=== PATIENT | female | born 1980 | race Two or more races ===

== ENCOUNTER 2020-02-16 08:46 | Outpatient (REF) | payer MEDICAID, SELFPAY ==
[2020-02-16 11:56] LABS: Syphilis Screen Nonreactive (Nonreactive)
[2020-02-17 04:02] LABS: ~HepC Num1 0.12 S/CO (0.00-0.79); ~Hepatitis C Antibody Nonreactive (Nonreactive)
[2020-02-17 04:09] LABS: HBsAGNum1 0.14 S/CO (0.00-0.99); HIV AB/AG Nonreactive (Nonreactive); HIV Num 1 0.08 S/CO (0.00-0.99); Hepatitis B Surface Antigen Negative (Negative)
[2020-02-17 09:41] LABS: BV Int Neg Control Negative (Negative); BV Int Pos Control Positive (Positive)
[2020-02-24 05:53] LABS: HPV 16 RNA NOT DETECTED (NOT DETECTED); HPV mRNA E6/E7 rflx Detected (Not Detected)
[2020-03-11 14:21] LABS: CT PCR NOT DETECTED (Not Detect.); NG PCR NOT DETECTED (Not Detect.)
== END 2020-02-16 08:47 | disposition home or self-care (01) ==
LOC: HO.LAB 08:46
PROVIDERS: Visit Provider Obstetrics & Gynecology
DX: Z01.419 Encounter for gynecological examination (general) (routine) without abnormal findings (principal)
CPT/HCPCS: 86780; 86803; 87340; 87389; 87480; 87491; 87510; 87591; 87624; 87625; 87660; 88141; 88142

== ENCOUNTER 2020-03-13 14:52 | Outpatient (REF) | payer MEDICAID, SELFPAY | END 2020-03-13 14:53 | disposition home or self-care (01) | LOC: HO.LAB 14:52 | PROVIDERS: Visit Provider Obstetrics & Gynecology | DX: L91.8 Other hypertrophic disorders of the skin (principal); F17.210 Nicotine dependence, cigarettes, uncomplicated | CPT/HCPCS: 11200; 88305 ==

== ENCOUNTER 2020-06-07 12:33 | Outpatient (REF) | payer MEDICAID, SELFPAY ==
--- NOTE | ~2020-06-07 | US_ITS ---
EXAMINATION: US DIAGNOSTIC ULTRASOUND BREAST, LEFT CLINICAL INFORMATION: Follow-up probable benign complicated cyst left breast with fine internal avascular septations. COMPARISON: Targeted ultrasound left breast 11/15/2019, 05/17/2019 (BI-RADS 0). TECHNIQUE: Ultrasound left breast is targeted to the 1:00 position. Grayscale imaging and color Doppler are performed without and with harmonics. FINDINGS: There is a small cyst with fine avascular internal septations 1:00 position 5 cm from nipple measuring approximately 5 mm. There is no increasing size or interval thickening of the septation, color flow, or interval solid component. The cyst will be reassessed again at time of annual upcoming bilateral annual mammography to conclude surveillance. Results are provided to the patient at time of visit by the technologist. US/US breast LT limited IMPRESSION: Stable small benign-appearing complicated cyst 1:00 position. ASSESSMENT: BI-RADS 3: Probably Benign RECOMMENDATION: Targeted left breast ultrasound at time of upcoming bilateral annual mammography. This patient's information was entered into a reminder system with a target due date for their next mammogram.
== END 2020-06-07 12:34 | disposition home or self-care (01) ==
LOC: HO.MAMMO 12:33
PROVIDERS: PCP Registered Nurse; Visit Provider Registered Nurse
DX: N60.02 Solitary cyst of left breast (principal)
CPT/HCPCS: 76642

== ENCOUNTER → 2020-06-14 09:50 | Outpatient (BNVA) | payer MEDICAID, SELFPAY | PROVIDERS: Visit Provider Obstetrics & Gynecology | DX: R87.610 Atypical squamous cells of undetermined significance on cytologic smear of cervix (ASC-US) (principal); R87.810 Cervical 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virus (HPV) DNA test positive | CPT/HCPCS: 57454 ==

== ENCOUNTER 2020-06-15 08:16 | Outpatient (REF) | payer MEDICAID, SELFPAY | END 2020-06-15 08:17 | disposition home or self-care (01) | LOC: HO.LAB 08:16 | PROVIDERS: Visit Provider Obstetrics & Gynecology | DX: R87.610 Atypical squamous cells of undetermined significance on cytologic smear of cervix (ASC-US) (principal); R87.810 Cervical 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virus (HPV) DNA test positive | CPT/HCPCS: 88305 ==

== ENCOUNTER → 2020-06-28 11:45 | Outpatient (BNVA) | payer MEDICAID, SELFPAY | PROVIDERS: Visit Provider Obstetrics & Gynecology | DX: R87.610 Atypical squamous cells of undetermined significance on cytologic smear of cervix (ASC-US) (principal); R87.810 Cervical 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virus (HPV) DNA test positive ==

== ENCOUNTER 2021-01-17 11:52 | Outpatient (REF) | payer MEDICAID, SELFPAY ==
--- NOTE | ~2021-01-17 | US_ITS ---
EXAMINATION: US THYROID CLINICAL INFORMATION: Nontoxic single thyroid nodule. COMPARISON: Ultrasound soft tissue head/neck thyroid dated 05/11/2019. TECHNIQUE: Linear transducer grayscale and color Doppler examination with attention to the region of the thyroid. FINDINGS: SIZE: Measurements of the thyroid lobes and nodules are given in sagittal, anteroposterior and transverse dimensions respectively. Right Thyroid Lobe: 5.3 x 1.4 x 1.7 cm, volume 6.6 mL. Previously 5.4 x 1.6 x 1.9 cm, volume 8.6 mL. Parenchyma: The gland echotexture is homogeneous. Thyroid vascularity is normal. Left Thyroid Lobe: 5.3 x 1.4 x 1.5 cm, volume 5.8 mL. Previously 4.8 x 1.6 x 1.7 cm, volume 6.8 mL. Parenchyma: The gland echotexture is homogeneous. Thyroid vascularity is normal. Isthmus: 0.4 cm in maximum AP dimension. Previously 0.4 cm. Estimated total number of nodules greater than or equal to 1 cm: 0. 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 Location: Right superior. Size: 0.6 x 0.5 x 0.9 cm, volume 0.15 mL. Previously: 0.9 x 0.5 x 0.5 cm, volume 0.12 mL. Nodule characteristics: Composition: Solid (2). Echogenicity: Isoechoic (1). Shape: Taller than wide (3). Margins: Smooth (0). Echogenic Foci: None (0). ACR TI-RADS total points: 6 Previous: n/a ACR TI-RADS category: 4 Previous: n/a Significant change in size (>/= 20% in 2 dimensions and minimal increase of 2 mm or 50% or greater increase in volume): None Change in features: None Change in ACR TI-RADS risk category: n/a 2. Location: Right mid. Size: 0.3 x 0.2 x 0.3 cm, volume 0.01 mL. Previously: 0.2 x 0.2 x 0.2 cm, volume 0.004 mL. Nodule characteristics: Composition: Solid (2). Echogenicity: Hypoechoic (2). Shape: Not taller than wide (0). Margins: Smooth (0). Echogenic Foci: None (0). ACR TI-RADS total points: 4 Previous: n/a ACR TI-RADS category: 4 Previous: n/a Significant change in size (>/= 20% in 2 dimensions and minimal increase of 2 mm or 50% or greater increase in volume): None Change in features: None Change in ACR TI-RADS risk category: n/a 3. Location: Left inferior. Size: 0.6 x 0.7 x 0.8 cm, volume 0.2 mL. Previously: 0.8 x 0.7 x 0.9 cm, volume 0.26 mL. Nodule characteristics: Composition: Solid (2). Echogenicity: Very hypoechoic (3). Shape: Not taller than wide (0). Margins: Irregular (2). Echogenic Foci: Macrocalcifications (1). ACR TI-RADS total points: 8 Previous: n/a ACR TI-RADS category: 5 Previous: n/a Significant change in size (>/= 20% in 2 dimensions and minimal increase of 2 mm or 50% or greater increase in volume): None Change in features: None Change in ACR TI-RADS risk category: n/a NODES: No lymphadenopathy is seen in the tissue surrounding the thyroid gland. US/US thyroid IMPRESSION: Subcentimeter bilateral thyroid nodules, nonsuspicious. Recommend continued follow-up. ACR TI-RADS RECOMMENDATION REFERENCE: Ultrasound-guided fine-needle aspiration, followup ultrasound, no further follow up. * TR1 (0 point) and TR 2 (2 points): No FNA or follow up * TR3 (3 points): FNA if more than or equal to 2.5 cm in maximum dimension, followup ultrasound in 1, 3 and 5 years if 1.5 to 2.4 cm in maximum dimension. * TR4 (4-6 points): FNA if more than or equal to 1.5 cm in maximum dimension, followup ultrasound in 1, 2, 3 and 5 years if 1 to 1.4 cm in maximum dimension. * TR5 (more than or equal to 7 points): FNA if more than or equal to 1 cm in maximum dimension, followup ultrasound every year for 5 years if 0.5 to 0.9 cm in maximum dimension. * TR3, TR4 or TR5 nodules that are below the size threshold for follow up receive no follow up.
== END 2021-01-17 11:53 | disposition home or self-care (01) ==
LOC: HO.US 11:52
PROVIDERS: Visit Provider Registered Nurse
DX: E04.1 Nontoxic single thyroid nodule (principal)
CPT/HCPCS: 76536

== ENCOUNTER 2022-09-11 09:39 | Outpatient (REF) | payer MEDICAID, SELFPAY ==
--- NOTE | ~2022-09-11 | XR_ITS ---
EXAMINATION: XR KNEE, LEFT CLINICAL INFORMATION: Pain in the left knee. COMPARISON: None available. TECHNIQUE: Three views of the left knee. FINDINGS: No acute fractures or subluxation. Mild joint space narrowing of the medial compartment. No erosions or chondrocalcinosis. Trace joint effusion. No unexpected radiopaque foreign bodies. XR/XR knee LT 3V IMPRESSION: No acute fractures or subluxation. Mild degenerative osteoarthritis of the medial compartment. Trace joint effusion.
== END 2022-09-11 09:40 | disposition home or self-care (01) ==
LOC: HO.HOSX 09:39
PROVIDERS: Visit Provider Orthopaedic Surgery
DX: M25.562 Pain in left knee (principal); Z79.899 Other long term (current) drug therapy
CPT/HCPCS: 73562; 99202

== ENCOUNTER 2022-09-11 09:48 | Outpatient (AMB) | payer MEDICAID, SELFPAY ==
--- NOTE | 2022-09-11 09:53 | MHC.OFFVIS ---
Intake Vital Signs 09/11/22 10:08 Height 5 ft 8 in Weight 203 lb BMI 30.9 Intake Visit Reasons: New Pt - Left Knee Pain Intake Note: Gabi is a 42 year old female who presents today with complaints of progressively worsening left knee pain and ?locking?. The patient states that her symptoms have gotten worse over the last 10 years in spite of continued non operative treatments. She has done physical therapy for 12 weeks over the last 6 months which aggravated her pain. She has also had multiple injections. The most recent injection gave her minimal relief. She has tried Tylenol and ibuprofen which gave her only mild relief. She states that her left knee will ?lock? several times per day. Allergies No Known Allergies [No Known Allergies*] Allergy (Verified 09/11/22 10:08) Medication List - Last Reconciled 09/11/22 by David Barker MD albuterol sulfate 90 mcg/actuation (Ventolin HFA) 2 puffs inhalation Q4H PRN lidocaine HCl 4% (Aspercreme (lidocaine HCl)) 1 appl topical BID PFSH Medical History Depression Surgical History History of inguinal hernia repair Family History Father HTN (hypertension) Mother Diabetes Social History (Updated 09/11/22 @ 10:12 by STEFANI Garcia) Alcohol intake: never Patient Tobacco Use Status: Current everyday Tobacco user Cigarettes Per Day: 2 Substance Use Type: Marijuana Current occupational status: unemployed Sexual orientation: Straight/Heterosexual Gender identity: Female Female Reproductive History Menstrual Age of Menarche: 11 Physical Exam Vital Signs: BMI result Body Mass Index 30.9 Const Other: Well-nourished well-developed very friendly female awake alert and oriented x3 in no acute distress Extrem Other: Bilateral lower extremity examination shows good capillary refill, no skin lesions noted, normal sensation light touch Left knee examination shows a minimal effusion, minimal crepitus with range of motion, tenderness along her medial joint line, positive Raheem's test, no instability Results Reviewed Results Reviewed: X-rays of the patient's left knee taken today show mild diffused joint space narrowing, no acute bony abnormalities Assessment & Plan Assessment & Plan (1) Left knee pain: Code(s): M25.562 - Pain in left knee Plan Ms. Wilks presents with progressively worsening left knee pain and mechanical symptoms most likely due to a tear of her medial meniscus. Thus, I will send her for an MRI for further evaluation. I will see her back following the MRI to discuss the findings and treatment options. She will contact me prior to that time should any questions or concerns arise. I spent 22 minutes in reviewing the patient's records and imaging studies, seeing the patient and documenting in the medical record. Orders: Orders XR knee LT 3V Today M25.562 - Pain in left knee Coding Level of Care Code New Pt Level 2 (29984) Diagnoses Left knee pain M25.562
[2022-09-11 10:08] VITALS: BMI 30.9
== END 2022-09-11 11:51 | disposition home or self-care (01) ==
PROVIDERS: Visit Provider Orthopaedic Surgery
DX: M25.562 Pain in left knee (principal)
CPT/HCPCS: 99202

== ENCOUNTER 2024-04-01 16:00 | Outpatient (REF) | payer MEDICAID, SELFPAY ==
--- OUTSIDE RECORDS SUMMARY | 2024-04-01 19:29 | XMS_ITS | Encounter Summary ---
Author Organization [employer] Address [address] [place] [address] [address] [place] [address] Care Team Providers Care Wellness Manager Name Role Phone Mary Moore SHEN Primary Care Provider [phone] Reason for Referral * Imaging (Urgent) - Authorized Specialty Diagnoses / Procedures Referred By Contac t Referred To Contact Radiology Diagnoses Menorrhagia with regular cycle Procedures Us Pelvis complete Cindi Escalona CNM [address] [place] [address] Phone: tel: fax: [address] Phone: tel: fax: Referral ID Status Reason Start Date Expiration Date V isits Requested Visits Authorized [id number] Authorized 04/01/2024 04/01/2025 1 1 * Imaging (Urgent) - Authorized Specialty Diagnoses / Procedures Referred By Contac t Referred To Contact Radiology Diagnoses Menorrhagia with regular cycle Procedures US Pelvis Transvaginal Cidni Escalona CNM [address] [place] [address] Phone: tel: fax: [address] Phone: tel: fax: Referral ID Status Reason Start Date Expiration Date V isits Requested Visits Authorized [id number] Authorized 04/01/2024 04/01/2025 1 1 Encounter Details Date Type Department Care Team (Latest Contact Info) Description 04/01/2024 10:30 AM EST Procedure Visit [facility] [address] [place] [address] Cindi Escalona CNM [address] [place] [address] LGSIL on Pap smear of cervix (Primary Dx); Menorrhagia with regular cycle; Dyslipidemia Social History Tobacco Use Types Packs/Day Years Used Date Smoking Tobacco: Every Day Cigarettes Smokeless Tobacco: Never Comments:1/2 a pack if stres sed. Alcohol Use Standard Drinks/Week Comments Never 0 (1 standard drink = 0.6 oz pur e alcohol) Depression Answer Date Recorded Patient Health Questionnaire-9 Score 19 03/17/2024 Patient Health Questionnaire-9 Score 19 03/17/2024 Last PHQ-9: Questionnaire Data Not on file 0 03/17/2024 Housing Stability Answer Date Recorded What is your housing situation today? I have wagner rice 08/26/[address] you li ve. Do you have problems with any of the following? None of the above 08/26/2023 Food Insecurity Answer Date Recorded Within the past 12 months, y ou worried that your food would run out before you got money to buy more: Never True 08/26/2023 Within the past 12 months,th e food you bought just didn't last and you didn't have enough money to get more: Never True Transportation Answer Date Recorded In the past 12 months, has l ack of transportation kept you from medical appts, meetings, work or from getting things needed for daily living? No 08/26/2023 Utilities Answer Date Recorded In the past 12 months, has t he electric, gas, oil or water company threatened to shut off services in your home? No 08/26/2023 Depression Answer Date Recorded Patient Health Questionnaire-2 Score 4 03/17/2024 Internet Access Answer Date Recorded Internet Access Q1 No 11/03/2023 Internet Access Q2 I do not want or need it 04/2023 Comments Unknown Sex and Gender Information Value Date Recorded Sex Assigned at Female 12/31/2021 10:17 AM EDT Legal Sex Female 10:17 AM EDT Gender Identity Female 12/31/2021 10:17 AM EDT Sexual Orientation Straight 12/31/2021 10 :17 AM EDT documented as of this encounter Last Filed Vital Signs Vital Sign Reading Time Taken Comments Blood Pressure 133/86 04/01/2024 10:33 AM EST Pulse 100 04/01/2024 10:33 AM EST Temperature 36.4 ??C (97.6 ??F) 04/01/2024 10:[address] Respiratory Rate 16 04/01/2024 10:33 AM EST Oxygen Saturation 100% 04/01/2024 10:33 AM EST Inhaled Oxygen Concentration - - Weight 90.4 kg (199 lb 6.4 oz) 04/01/2024 10:33 AM EST Height 172.7 cm (5' 8 ) 04/01/2024 10:33 AM EST Body Mass Index 30.32 04/01/2024 10:33 AM EST documented in this encounter Progress Notes * Cindi Escalona, GEETA - 04/01/2024 10:30 AM EST Subjective Patient ID: Gabi Wilks is a 43 y.o. female who presents for pap LSIL HPV positive pap preceded by negative colpo in 2020 for ASCUS HPV pos, neg 16/18 pap in 2019. Plan was to cotest at 12 months. Mammogram ordered earlier this month. Has appointment 04/26. Notes some intermittent left chest painand left arm numbness for past few weeks. Not noted in past day or so. Would like cholesterol checked. Last lipid panel from 2022 with elevated total chol, LDL and TG. Monthly menses, getting progressively longer. Now bleeds x 8 days, heavy. No intermenstrual bleeding. Not planning in thenext year, not sexually active. No current partner. Review of Systems Eyes: Negative for visual disturbance. Respiratory: Negative for shortness of breath. Cardiovascular: Positive for chest pain. Negative for palpitations. Genitourinary: Positive for menstrual problem. Negative for dyspareunia, dysuria, frequency, genital sores, hematuria, pelvic pain, urgency, vaginal bleeding, vaginal discharge and vaginal pain. No breast pain, no breast mass, no nipple discharge Neurological: Negative for headaches. Objective BP 133/86 (BP Location: Right arm, Patient Position: Sitting, BP Cuff Size: Adult) Pulse 100 Temp 97.6 ??F (36.4 ??C) (Temporal) Resp 16 Ht 5' 8 (1.727 m) Wt 199 lb 6.4 oz (90.4 kg) LMP 02/19/2024 (Within Days) SpO2 100% BMI 30.32 kg/m?? Physical Exam Constitutional: Appearance: Normal appearance. Chest: Breasts: Right: Normal. No swelling, bleeding, inverted nipple, mass, nipple discharge, skin change or tenderness. Left: Normal. No swelling, bleeding, inverted nipple, mass, nipple discharge, skin change or tenderness. Genitourinary: General: Normal vulva. Labia: Right: No rash, tenderness, lesion or injury. Left: No rash, tenderness, lesion or injury. Vagina: Normal. No signs of injury and foreign body. No vaginal discharge, erythema, tenderness, bleeding or lesions. Cervix: No cervical motion tenderness, discharge, friability, lesion, erythema, cervical bleeding or eversion. Uterus: Normal. Not enlarged and not tender. Adnexa: Right adnexa normal and left adnexa normal. Right: No mass, tenderness or fullness. Left: No mass, tenderness or fullness. Lymphadenopathy: Upper Body: Right upper body: No supraclavicular or axillary adenopathy. Left upper body: No supraclavicular or axillary adenopathy. Neurological: Mental Status: She is alert. Psychiatric: Mood and Affect: Mood normal. Behavior: Behavior normal. Assessment/Plan Diagnoses and all orders for this visit: LGSIL on Pap smear of cervix - Pap Smear Cotest 3 years if normal/HPV neg per ASCCP Guidelines Menorrhagia with regular cycle - CBC; Future - TSH W/Reflex to FT4; Future - US Pelvis Transvaginal; Future - Us Pelvis complete; Future Increasingly heavier and longer menses over past few years. Will check TSH, cbc and pelvic ultrasound. Dyslipidemia - Lipid Panel, Standard; Future Would like repeat lipids. Will get fasting labs. Advised to seek care urgently if chest pain/left arm numbness recurs. Urged to clarify half sister's diagnosis (ovarian v cervical cancer) and let me know. If cervical, no further evaluation needed for Gabi. If ovarian, I would advise half sister have genetic consult. documented in this encounter Plan of Treatment Upcoming Encounters Date Type Department Care Team (Late st Contact Info) Description 05/12/2024 11:15 AM EDT Office Visit [facility] [address] [place] [address] Mary Moore FNP [address] [place] [address] Scheduled Orders Name Type Priority Associated Diagnoses Order Schedule Pap Smear Pathology and Cytology Routine LGSIL on Pap smear of cervix Ordered: 04/01/2024 CBC Lab Routine Menorrhagia with regular cycle Expected: 04/01/2024 (Approximate), Expires: 04/01/2025 TSH W/Reflex to FT4 Lab Routine Menorrhagia with regular cycle Expected: 04/01/2024 (Approximate), Expires: 04/01/2025 Lipid Panel, Standard Lab Routine Dyslipidemia Expected: 04/01/2024 (Approximate), Expires: 04/01/2025 US Pelvis Transvaginal Imaging Urgent Menorrhagia with regular cycle Expected: 04/01/2024, Expires: 04/01/2025 Us Pelvis complete Imaging Urgent Menorrhagia with regular cycle Expected: 04/01/2024, Expires: 04/01/2025 documented as of this encounter Visit Diagnoses Diagnosis LGSIL on Pap smear of cervix- Primary Menorrhagia with regular cycle Dyslipidemia Other and unspecified hyperlipidemia documented in this encounter Additional Health Concerns Assessment Noted Time PHQ-9 Depression Total Score: 19 025 11:24 AM EST documented as of this encounter Care Teams Wellness Manager Relationship Specialty Start Date End Date Mary Moore FNP [address] [place] [address] PCP - General Family Medicine 12/25/20 documented as of this encounter
--- OUTSIDE RECORDS SUMMARY | 2024-04-01 19:29 | XMS_ITS | Encounter Summary ---
Author Organization [employer] Address [address] [place] [address] [address] [place] [address] Care Team Providers Care Inspector Brake Lining Name Role Phone Mary Moore Primary Care Provider Reason for Visit * Reason Comments Care Coordination CM/CHW appt reminder Encounter Details Date Type Department Care Team (Latest Contact Info) Description 03/23/2024 Patient Outreach [facility] [address] [place], [place] [phone] Mary Moore FNP [address] [place], [place] [phone] Care Coordination (CM/CHW appt reminder) Social History Tobacco Use Types Packs/Day Years [...] your housing situation today? I have wagner dwayne 08/26/[address] you li [...] AM EDT documented as of this encounter Progress Notes * Sheree Noe - 03/23/2024 10:25 AM EST CHW Sheree Noe placed outbound call to patient. No answer at this time. [facility], reminding patient of initial assessment appt via telephone on 03/24/24 @ 10AM tele with CM Adult Complex Care program services. Requested call back to , as well as for any additional questions or concerns. documented in this encounter Plan of Treatment Upcoming Encounters Date Type Department Care Team (Late st Contact Info) Description 05/12/2024 11:15 AM EDT Office Visit [facility] MEDICINE [address] [place] [address] Mary Moore FNP [address] [place] [address] documented as of this encounter Visit Diagnoses Not on filedocumented in this encounter Additional Health Concerns Assessment Noted Time PHQ-9 Depression Total Score: 19 025 11:24 AM EST documented as of this encounter Care Teams Inspector Brake Lining Relationship Specialty Start Date End Date Mary Moore FNP [address] [place] [address] PCP - General Family Medicine 12/25/20 documented as of this encounter
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
--- OUTSIDE RECORDS SUMMARY | 2024-04-01 19:29 | XMS_ITS | Encounter Summary ---
Author Organization [employer] Address [address] [facility] [address] 7 [place] [address] Care Team Providers Care Needle Leader Name Role Phone Mary Moore SHEN Primary Care Provider [phone] Reason for Visit * Reason Onset Date Comments Care Management 03/19/2024 C3- chart [id number] [id number] Encounter Details Date Type Department Care Team ([facility] st Contact Info) Description 03/19/2024 Telephone [facility] [address] [place] [address] Kevin Quintero RN [address] [place] [address] Care Management (C3CM- chart review) Social History Tobacco Use Types Packs/Day Years [...] AM EDT documented as of this encounter Miscellaneous Notes * Telephone Encounter - Kevin Quintero RN - 03/19/2024 8:12 AM EST CM Kevin Quintero RN, performed chart review, in anticipation of initial assessment with patient, as patient has stratified for C3 Adult Complex Care through provider referral. 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 Specialists include PT, Optometry, [facility] Ortho, and Behavioral Health. No known ED visits within the last 12 months. Last appointment in PCP office on 03/17/24. Next appointment scheduled for 03/29/24 at 11:00am with [facility] Chronic Pain Clinic and 04/01/24 at 10:30am for PAP-[facility]. documented in this encounter Plan of Treatment Upcoming Encounters Date Type Department Care Team (Late st Contact Info) Description 05/12/2024 11:15 AM EDT Office Visit [facility] [address] [place] [address] Mary Moore FNP [address] [place], [place] [phone] documented as of this encounter Visit Diagnoses Not on filedocumented in this encounter Additional Health Concerns Assessment Noted Time PHQ-9 Depression Total Score: 19 025 11:24 AM EST documented as of this encounter Care Teams Needle Leader Relationship Specialty Start Date End Date Mary Moore FNP [address] [place] [id number] PCP - General Family Medicine 12/25/20 documented as of this encounter
--- OUTSIDE RECORDS SUMMARY | 2024-04-01 19:29 | XMS_ITS | Encounter Summary ---
Author Organization [employer] Address [address] [place] [address] Care Team Providers Care Reconsignment Clerk Name Role Phone Mary Moore SHEN Primary Care Provider [phone] Encounter Details Date Type Department Care Team (Latest Contact Info) Description 03/25/2024 Travel Social History Tobacco Use Types Packs/Day Years [...] AM EDT documented as of this encounter Plan of Treatment Upcoming Encounters Date Type Department Care Team (Late st Contact Info) Description 05/12/2024 11:15 AM EDT Office Visit [facility] [address] [place] [address] Mary Moore FNP [address] [place] [address] documented as of this encounter Visit Diagnoses Not on filedocumented in this encounter Additional Health Concerns Assessment Noted Time PHQ-9 Depression Total Score: 19 025 11:24 AM EST documented as of this encounter Care Teams Reconsignment Clerk Relationship Specialty Start Date End Date Mary Moore FNP [address] [place] [address] PCP - General Family Medicine 12/25/20 documented as of this encounter
--- OUTSIDE RECORDS SUMMARY | 2024-04-01 19:29 | XMS_ITS | Clinical Summary ---
Author Organization [employer] Address [address] [facility] [address] [place] [address] Care Team Providers Care Cmo Name Role Phone Mary Moore SHEN Primary Care Provider [phone] Allergies No known active allergies Medications * This document contains information received from the source organization and may not represent a complete record from that organization. fluticasone (Flovent HFA) 220 MCG/ACT inhalerIndication s:Moderate persistent asthma, uncomplicated Inhale 1 puff every 12 (twelve) hours. 12 g 3 3 Active ulipristal (Starla) 30 mg tablet Take 1 tablet by mouth. 1 Active cyclobenzaprine (Flexeril) 10 MG tabletIndications :Acute left-sided low back pain without sciatica Take 1 tablet (10 mg) by mouth if needed in the morning, at noon, and at bedtime for muscle spasms for up to [address]. [address] while on this medication 30 tablet 4 Active fluticasone (Flonase) 50 MCG/ACT nasal spray Administer 1-2 sprays into each nostril if needed each day for allergies. Shake gently. Before first use, prime pump. After use, clean tip and replace cap. 16 g 5 4 025 Active ibuprofen 800 MG tabletIndications :Low back pain at multiple sites,Discogenic lumbar pain Take 1 tablet (800 mg) by mouth every 8 (eight) hours if needed (pain or fever). 100 tablet 3 4 Active acetaminophen (Tylenol Extra Strength) 500 MG tabletIndications :Low back pain at multiple sites,Discogenic lumbar pain Take 1-2 tablets (500-1,000 mg) by mouth every 8 (eight) hours if needed (pain or fever). 100 tablet 3 4 025 Active Diclofenac Sodium 1 % gelIndications:Lo w back pain at multiple sites,Discogenic lumbar pain APPLY 1 APPLICATION TOPICALLY IF NEEDED IN THE MORNING, AT NOON, IN THE EVENING AND AT BEDTIME FOR PAIN 100 g 5 4 Active albuterol (ProAir HFA) 108 (90 Base) MCG/ACT inhalerIndication s:Moderate persistent asthma, uncomplicated Inhale 2 puffs every 4 (four) hours if needed for wheezing or shortness of breath. 18 g 3 4 025 Active lidocaine (Lidoderm) 5 % patch Apply 1 patch topically in the morning as needed for knee pain. Remove & discard patch within 12 hours or as directed by provider. 30 patch 11 4 Active melatonin 5 MG tabletIndications :Sleep difficulties Take 1 tablet (5 mg) by mouth at bedtime. Take 60 minutes before bed. 90 tablet 1 5 026 Active Magnesium 400 MG capsuleIndication s:Sleep difficulties Take 400 mg by mouth at bedtime. Take 60 minutes before bed. 90 capsule 1 5 026 Active Active Problems Problem Noted Date Diagnosed Date Menorrhagia with regular cycle 04/01/2024 Marijuana use 03/19/2024 Healthcare maintenance 09/03/2023 Overview (03/18/2024): OPH: CEE 10/21/22 at [facility]. Due Oct 2024 Last PE: 09/03/23 Tdap: last 09/03/23 Routine Cancer Screening Breast CA: Last available May 2019: BIRADS 3. Order placed 03/17/2024 Cervical CA: ASCUS HPV pos, neg 16/18 in 02/2020, followed by negative colposcopy 06/2020. Jan 2021 LSIL HPV pos. Due for repeat Jan 2022. Scheduled 04/01/2024 at [facility] Colon CA: routine screening 45-75 years old per ACS Assessment & Plan (09/04/2023 2:28 PM EDT): Due to acute concerns, time did not permit for discussion of routine cancer screenings. Plan for pt to return in 1 month to discuss routine health maintenance (mammo & pap due), as well as lab work. Severe episode of recurrent major depressive disorder, without psychotic features 09/10/2022 Assessment & Plan (09/04/2023 2:42 PM EDT): Reports leading to significant impairments with locating employment and functioning in daily activities Denies active SI/HI/thoughts of self harm Referred for OP therapy ([facility]). Plan for initial appt within the next two weeks Consider discussion of pharmacotherapy at follow up Assessment & Plan (09/15/2022 9:03 PM EDT): ?? Reports leading to significant impairments with locating employment and functioning in daily activities ?? Denies SI/HI/thoughts of self harm ?? BE completed in office, please see documentation for further details ?? Referral for OP therapy placed Assessment & Plan (09/11/2022 8:33 AM EDT): Assessment: Patient with anhedonia, depressed mood, trouble falling asleep, feeling tired, poor appetite, shame/guilt, trouble concentrating. She denies SI/HI. Presentation in the context of family conflict, financial instability, unemployment, and lack of support system. Patient is requesting OP therapy service to assist with her processing trauma history. At this time Gabi Wilks meets criteria for Visit Diagnoses: Problem List Items Addressed This Visit Other Severe episode of recurrent major depressive disorder, without psychotic features (CMS/HCC) Patient ready to address current needs Yes Strengths include motivation to improve mental health by seeking out help PLAN: 1. Follow up with C: Not recommended for follow-up 2. Patient goal is to be connected to a therapist 3. Behavioral Recommendations a. Patient will engage in OP therapy, once service is established b. Patient may request to connect with a [facility] during next PCP visit, if needed Costochondritis 09/02/2022 Assessment & Plan (09/02/2022 10:05 AM EDT): -EKG unremarable. -Exam and history consitant with costochondritis. -Recomend rest, warm compresses, ibuprofen, and cyclobenzaprine for pain. Moderate persistent asthma without complication 07/11/2022 Overview (09/04/2023): Maintenance: Flovent 220mcg/act 1 puff BID Rescue: albuterol PRN Assessment & Plan (09/04/2023 2:40 PM EDT): Cont with above, Follow up with any worsening of symptoms Assessment & Plan (07/11/2022 4:05 PM EDT): Follow up with any worsening of symptoms Cigarette smoker 07/11/2022 Assessment & Plan (07/11/2022 4:36 PM EDT): ?? Currently smoking up to 0.5 pack per day ?? Previous trials of NRT and Varenicline ?? Follow up if interested in smoking cessation resources through [facility] Discogenic lumbar pain 01/18/2021 Overview (03/18/2024): Specialists: previously referred to physiatry. They had recommended PT and to return if worsening for consideration of injection Continue with symptomatic relief measures such as warm bath/shower, APAP & ibuprofen PRN, stretching Referral to physical therapy placed 09/03/23, re-sent on 03/18/2024 Assessment & Plan (03/18/2024 9:49 AM EST): Referral to physical therapy, also scheduled for [facility] chronic pain group clinic Assessment & Plan (07/11/2022 4:32 PM EDT): Follow up as needed Generalized anxiety disorder 01/06/2021 Assessment & Plan (03/18/2024 9:52 AM EST): BE completed today, see documentation for further details BH: Weekly therapy sessions through [facility] Pharmacotherapy: Discussed risks/benefits, she will consider Primary goal: Housing. Referred to care management team for further assistance and support. Thyroid nodule 01/06/2021 Encounters * This document contains information received from the source organization and may not represent a complete record from that organization. Date Type Department Care Team Description 04/01/2024 10:30 AM EST Procedure Visit [facility] [address] [place] [id number] Cindi Escalona CNM LGSIL on Pap smear of cervix (Primary Dx); Menorrhagia with regular cycle; Dyslipidemia 04/01/2024 Travel 03/25/2024 Travel 03/24/2024 Travel 03/24/2024 Patient Outreach [facility] [address] [place] [address] Mary Moore FNP Care Coordination (CM/CHW appt) 03/23/2024 Patient Outreach [facility] [address] [place] [address] Mary Moore FNP Care Coordination (CM/CHW appt reminder) 03/19/2024 Patient Outreach [facility] [address] [place] [address] Mary Moore FNP Care Coordination (CM/CHW outreach) 03/19/[address] [address] Kevin Quintero RN Care Management (C3CM- chart review) 03/17/2024 11:15 AM EST Office Visit [address] [address] Mary Moore FNP Generalized anxiety disorder (Primary Dx); Healthcare maintenance; Encounter for screening mammogram for malignant neoplasm of breast; Discogenic lumbar pain; Sleep difficulties 03/17/2024 Travel 03/17/[address] [address] Nishant Quiros [place] Chart Prep 01/21/2024 Travel from Last 3 Months Immunizations Name Administration Dates Next Due Tdap 09/03/2023 Family History Medical History Relation Name Comments Congenital heart disease Daughter Diabetes Mother Prostate cancer Paternal Grandfather Breast cancer Paternal Grandmother Relation Name Status Comments Daughter Half-Sister Other Ovarian vs cerv ical cancer, 33 Mother Paternal Grandfather Paternal Grandmother Social History Tobacco Use Types Packs/Day Years Used Date Smoking Tobacco: Every Day Cigarettes Smokeless Tobacco: Never Tobacco Cessation:Ready to Q uit: Not Asked; Counseling Given: Not Answered Comments:1/2 a pack if stressed. Alcohol Use Standard Drinks/Week Comments Never 0 [...] Orientation Straight 12/31/2021 10 :17 AM EDT Last Filed Vital Signs Vital Sign Reading [...] Mass Index 30.32 04/01/2024 10:33 AM EST Plan of Treatment Upcoming Encounters Date Type Department Care Team (Late st Contact Info) Description 05/12/2024 11:15 AM EDT Office Visit [facility] [address] [place], [place] [phone] Mary Moore FNP [address] [place], [place] [phone] Health Maintenance Due Date Last Done Comments Hepatitis B Vaccines (1 of 3 - 19+ 3-dose series) 07/02/1999 Pneumococcal Vaccine: Pediatrics (0 to 5 Years) and At-Risk Patients (6 to 49) Years) (1 of 2 - PCV) 07/02/1999 Mammogram 05/16/2021 05/17/2019 Pap Smear 01/05/2024 01/04/2021, 01/04/2021 SDOH Screening 08/25/2024 08/26/2023 Influenza Vaccine (#1) 2024 Postp oned from 11/02/2023 (Patient Refused) Alcohol/Substance Use Screening 09/02/2024 09/03/2023 Depression Monitoring (PHQ-9) 09/14/2024, 03/17/2024 Depression Screening 03/17/2025 03/17/2024, 03/17/2024 COVID-19 Vaccine (1 - 2023-2 5 season) 2025 Postponed from 11/01 (Patient Refused) Family Planning (PISQ) 04/01/2025 04/01/2024 Tobacco Screening 04/01/2025 04/01/2024 Cervical Cancer Screening 01/04/2026 HPV/Cotest 01/04/2026 01/04/2021 Lipid Panel 07/09/2027 07/08/2022, 12/29/2020 Zoster Vaccines (1 of 2) 2030 DTaP/Tdap/Td Vaccines (2 - T d or Tdap) 09/02/2033 09/03/2023 RSV Patients and Patients Aged 60 years or older (1 - 1-dose 75+ series) 07/02/2055 HIV Screening Completed 12/29/2020, 04/26/2019 Hepatitis C Screening Completed 12/29/2020 , 04/26/2019 HIB Vaccines Aged Out No longer eligi ble based on patient's age to complete this topic HPV Vaccines Aged Out No longer eligi ble based on patient's age to complete this topic Hepatitis A Vaccines Aged Out No long er eligible based on patient's age to complete this topic IPV Vaccines Aged Out No longer eligi ble based on patient's age to complete this topic Meningococcal Vaccine Aged Out No vivi vasiliy eligible based on patient's age to complete this topic RSV under 20 months Aged Out No longe r eligible based on patient's age to complete this topic Rotavirus Vaccines Aged Out No longer eligible based on patient's age to complete this topic Procedures Procedure Name Priority Date/Time Associated Diagnosis Comments LIPID PANEL, STANDARD Routine 07/08/2022 2:32 PM EDT Encounter for routine history and physical examination of adult THINPREP IMAGING PAP AND HPV MRNA E6/E7 WITH REFLEX TO HPV 16,18/45 Routine 01/04/2021 11:13 AM EDT PAP SMEAR Routine 01/04/2021 12:00 AM EDT NETTE HISTORICAL HEPATITIS C AB W/REFL TO HCV RNA, QN, PCR Routine 12/29/2020 4:34 PM EDT HIV 1/2 ANTIGEN/ANTIBODY, FOURTH GENERATION W/RFL Routine 12/29/2020 4:34 PM EDT BI MAMMOGRAM DIAGNOSTIC BILATERAL Routine 05/17/2019 2:02 PM EDT from Last 3 Months or Most Recently Relevant to Health Maintenance Results * (ABNORMAL) Lipid Panel, Standard (07/08/2022 2:32 PM EDT) Pathologist [facility] Cholesterol, Total 249(H) <200 mg/dL [facility] [place] [employer] HDL Cholesterol 55 > OR = 50 mg/dL [facility] [place] [facility] Triglycerides 154(H) <150 mg/dL [facility] LDL Cholesterol 164(H) mg/dL (calc) [facility] [place] [employer] Comment: Reference range: <100 Desirable range <100 mg/dL for primary prevention; ?? <70 mg/dL for patients with CHD or diabetic patients with > or = 2 CHD risk factors. LDL-C is now calculated using the Navneet calculation, which is a validated novel method providing better accuracy than the Friedewald equation in the estimation of LDL-C. Kosta SS et al. RIP. 2013;310(19): 6366-4794 (http://education.[employer]igma[employer]/faq/QUJ851) Chol/HDLC Ratio 4.5 <5.0 (calc) [facility] [place] [facility] Non-HDL Cholesterol 194(H) <130 mg/dL (calc) [facility] [place] [employer] Comment: For patients with diabetes plus 1 major ASCVD risk factor, treating to a non-HDL-C goal of <100 mg/dL (LDL-C of <70 mg/dL) is considered a therapeutic option. Blood Venous blood specimen / Unknown 07/08/2022 2:32 PM EDT 07/08/2022 2:32 PM EDT Narrative [facility] - 07/09/2022 4:55 AM EDT FASTING:NO FASTING: NO Mary Moore IRA [facility] LAB BLOOD ORDERABLES Final Res ult [facility] [address], [place] [address] [facility] [employer]OCUS [employer] [place] [employer] [address] [place] [address] * (ABNORMAL) THINPREP TIS PAP AND HPV mRNA E6/E7 REFLEX HPV 16,18/45 (01/04/2021 11:13 AM EDT) [facility] Clinical Information: None given [facility] COMMENT SEE COMMENT [facility] Comment: EXPLANATORY NOTE: ? The Pap is a screening test for cervical cancer. It is ?? not a diagnostic test and is subject to false negative ?? and false positive results. It is most reliable when a ?? satisfactory sample, regularly obtained, is submitted ?? with relevant clinical findings and history, and when ?? the Pap result is evaluated along with historic and ?? current clinical information. ?? COMMENT: This Pap test has been evaluated with computer assisted technology. [facility] Laminated [employer] Assembler And Gluer: SEE COMMENT [facility] Comment: DCR, CT(ASCP) CT screening location: [address] ??[address] General Categorization: EPITHELIAL CELL ABNORMALITY(A) [facility] HPV nRNA E6/E7 Detected(A) Not Detected [facility] [employer] Comment: Methodology: Marketing Technology Coordinator-Mediated Amplification This assay detects E6/E7 viral messenger RNA (mRNA) from 14 high-risk HPV types (16,18,31,33,35,39,45,51,52,56,58,59,66,68). ? The analytical performance characteristics of this assay have been determined by [facility]. The modifications have not been cleared or approved by the FDA. This assay has been validated pursuant to the CLIA regulations and is used for clinical purposes. ?? For additional information, please refer to http://education.[employer]/faq/XPI402d9 (This link if provided for information/ educational purposes only.) Interpretation/Re sult: Low Grade Squamous Intraepithelial Lesion (LSIL)(A) [facility] LMP: 12/25/20 [facility] PATHOLOGIST: SEE COMMENT FOUND [facility] Comment: Keyona Thompson M.D. Direct , Board Certified in Anatomic and Clinical Pathology and Cytopathology (electronic signature) Consulting Pathologist [facility] Pathology [address] [place] [address] Prev. BX: NONE GIVEN [facility] Prev. PAP: NONE GIVEN [facility] SOURCE: None given [facility] Statement Of Adequacy: SEE COMMENT [facility] Comment: Satisfactory for evaluation. Endocervical/transformation zone component present. 01/04/2021 11:1 3 AM EDT Cindi Castrojoe [facility] LAB PATHOLOGY ORDERABLES Final Result Performing Organization Address [facility] de Phone Number [facility] [address] [place] [address], * Pap Smear (01/04/2021 12:00 AM EDT) Swab Cindi Leonciosena [facility] LAB CYTOLOGY ORDERABLES F inal Result Performing Organization Address [facility] de Phone Number [facility] [address] [facility], [place] [address] * HEPATITIS C AB W/REFL TO HCV RNA, QN, PCR (12/29/2020 4:34 PM EDT) HEPATITIS C ANTIBODY NON-REACT JEREMY NON-REACT JEREMY [facility] INDEX 0.02 <1.00 [facility] Comment: ?? HCV antibody was non-reactive. There is no laboratory ?? evidence of HCV infection. ?? In most cases, no further action is required. However, if recent HCV exposure is suspected, a test for HCV RNA (test code 26107) is suggested. ?? For additional information please refer to http://education.[employer]/faq/GVF76z4 (This link is being provided for informational/ educational purposes only.) ?? 12/29/2020 4:34 PM EDT Mary Moore AIRCRAFT ARMAMENT MECHANIC HISTORICAL/NON ORDERABLE LABS Final Result Performing Organization Address [facility] de Phone Number [facility] [address] [place] [address], * HIV 1/2 ANTIGEN/ANTIBODY,FOURTH GENERATION W/RFL (12/29/2020 4:34 PM EDT) HIV-1/2 ANTIGEN AND ANTIBODIES, 4TH GENERATION W/ REFLEX NON-REACT JEREMY NON-REACT JEREMY [facility] Comment: HIV-1 antigen and HIV-1/HIV-2 antibodies were not detected. There is no laboratory evidence of HIV infection. ?? PLEASE NOTE: This information has been disclosed to you from records whose confidentiality may be protected by state law. ??If your state requires such protection, then the state law prohibits you from making any further disclosure of the information without the specific written consent of the person to whom it pertains, or as otherwise permitted by law. A general authorization for the release of medical or other information is NOT sufficient for this purpose. ? For additional information please refer to http://education.[employer]/faq/CTE474 (This link is being provided for informational/ educational purposes only.) ? The performance of this assay has not been clinically validated in patients less than 2 years old. ?? 12/29/2020 4:34 PM EDT Mary Moore [employer] LAB BLOOD ORDERABLES Final Res ult Performing Organization Address City/State/[facility] Co de Phone Number [facility] [address] * 3D BILATERAL DIAGN MAMMO 1 (05/17/2019 2:02 PM EDT) Anatomical Region Laterality Modality Breast Bilateral Mammography 05/17/2019 2:02 PM EDT Narrative 05/17/2019 2:04 PM EDT Refer to the Notes tab for result details [facility] Procedure: 3D BILATERAL DIAGN MAMMO 1 Procedure Note Provider, MD Zeeshan - 05/25/2022 Refer to the Notes tab for result details [facility] Procedure: 3D BILATERAL DIAGN MAMMO 1 Historical Provider IMG BI PROCEDURES Final R esult from Last 3 Months or Most Recently Relevant to Health Maintenance Insurance #[address] [place] [address] [facility] C3 HSN FULL . #1 [place] [address] . [address] [place] [address] . [address] [place] [address] Care Teams Cmo Relationship Specialty Start Date End Date Mary Moore FNP [address] [place] [id number] PCP - General Family Medicine 12/25/20
--- OUTSIDE RECORDS SUMMARY | 2024-04-01 19:29 | XMS_ITS | Encounter Summary ---
Author Organization [employer] Address [address] [place] [address] Care Team Providers Care Skin Fitter Name Role Phone Mary Moore SHEN Primary Care Provider Encounter Details Date Type Department Care Team (Latest Contact Info) Description 03/17/2024 Travel Social History Tobacco Use Types Packs/Day [...] Description 05/12/2024 11:15 AM EDT Office Visit [facility] [address] [place] [address] Mary Moore FNP [address] [place] [address] documented as of this encounter Visit Diagnoses Not on filedocumented in this encounter Additional Health Concerns Assessment Noted Time PHQ-9 Depression Total Score: 19 025 11:24 AM EST documented as of this encounter Care Teams Skin Fitter Relationship Specialty Start Date End Date Mary Moore FNP [address] [place] [address] PCP - General Family Medicine 12/25/20 documented as of this encounter
--- OUTSIDE RECORDS SUMMARY | 2024-04-01 19:29 | XMS_ITS | Encounter Summary ---
Author Organization [employer] Address [address] [facility] [address] [place] [address] Care Team Providers Care Salesperson Furniture Name Role Phone Mary Moore SHEN Primary Care Provider Reason for Visit * Reason Onset Date Comments Chart Prep 03/17/2024 Encounter Details Date Type Department Care Team (Late st Contact Info) Description 03/17/2024 Telephone [facility] [address] [place] [address] Nishant Quiros [place] Chart Prep Social History Tobacco Use Types Packs/Day Years [...] encounter Miscellaneous Notes * Telephone Encounter - Nishant Calderón [place] - 03/17/2024 8:29 AM EST Chart Prep Labs: done Images: done Vaccines due: yes Referrals: pending appt Screenings: mammogram Overdue care gaps: PHQ-9 documented in this encounter Plan of Treatment Upcoming Encounters Date Type Department Care Team (Late st Contact Info) Description 05/12/2024 11:15 AM EDT Office Visit [facility] [address] [place] [address] Mary Moore FNP [address] [place] [address] documented as of this encounter Visit Diagnoses Not on filedocumented in this encounter Additional Health Concerns Assessment Noted Time PHQ-9 Depression Total Score: 19 025 11:24 AM EST documented as of this encounter Care Teams Salesperson Furniture Relationship Specialty Start Date End Date Mary Moore FNP [address] [place] [address] PCP - General Family Medicine 12/25/20 documented as of this encounter
--- OUTSIDE RECORDS SUMMARY | 2024-04-01 19:29 | XMS_ITS | Encounter Summary ---
Author Organization [employer] Address [address] [place] [address] Care Team Providers Care Monogram Technician Name Role Phone Mary Moore SHEN Primary Care Provider [phone] Encounter Details Date Type Department Care Team (Latest Contact Info) Description 04/01/2024 Travel Social History Tobacco Use Types Packs/Day [...] Description 05/12/2024 11:15 AM EDT Office Visit [facility] [address] [place] [address] Mary Moore FNP [address] [place] [address] documented as of this encounter Visit Diagnoses Not on filedocumented in this encounter Additional Health Concerns Assessment Noted Time PHQ-9 Depression Total Score: 19 025 11:24 AM EST documented as of this encounter Care Teams Monogram Technician Relationship Specialty Start Date End Date Mary Moore FNP [address] [place] [address] PCP - General Family Medicine 12/25/20 documented as of this encounter
--- OUTSIDE RECORDS SUMMARY | 2024-04-01 19:29 | XMS_ITS | Encounter Summary ---
Author Organization [employer] Address [address] [place] [address] 7t [place] [address] Care Team Providers Care Hospital Laboratory Technician Name Role Phone Mary Moore Primary Care Provider [phone] Reason for Visit * Reason Onset Date Comments Triage 05/01/2022 Encounter Details Date Type Department Care Team ([facility] st Contact Info) Description 05/01/2022 Telephone [facility] MEDICINE [address] [place] [address] Mary Moore FNP [address] [place] [address] Triage Social History Tobacco Use Types Packs/Day Years Used Date Smoking Tobacco: Never Assessed Comments Unknown Sex and Gender Information Value Date Recorded Sex Assigned at Female 12/31/2021 10:17 AM EDT Legal Sex Female 10:17 AM EDT Gender Identity Female 12/31/2021 10:17 AM EDT Sexual Orientation Straight 12/31/2021 10 :17 AM EDT COVID-19 Exposure Response Date Recorded In the last 10 days, have yo u been in contact with someone who was confirmed or suspected to have Coronavirus/COVID-19? No / Unsure 05/03/2022 9:01 AM EST documented as of this encounter Miscellaneous Notes * Telephone Encounter - Jane Cobos RN - 05/01/2022 12:45 PM EST Triage call Pt reports sore throat from thyroid . Pt reports this discomfort has been happening for a few days and feels like there is a ball in my throat that moves when I swallow . Pt is not taking thyroid medications. Pt is neg for fever or earache but, has a cough which Pt attributes to smoking. Pt is eating and drinking liquids well at this time. apt with ARTEMIO Alvarado 05/10 @ 130pm Protocol Used: Sore Throat (Adult) Protocol-Based Disposition: Strep Test Only Visit Today or Tomorrow Override (Final) Disposition: See in Office or Video Visit within 2 Weeks Override Reason: Other Video visit not offered Positive Triage Question: * Sore throat is main symptom and persists > 48 hours * All higher-acuity triage questions were negative Care Advice Discussed: * For Relief of Sore Throat Pain * Pain and Fever Medicines * Pain and Fever Medicines - Extra Notes and Warnings * Soft Diet * Drink Plenty of Liquids * Contagiousness * Expected Course * Reasons To Call Back - Sore throat is the main symptom and it lasts longer than 48 hours - Sore throat is mild but lasts longer than 4 days - Fever lasts longer than 3 days - You become worse * Telephone Encounter - He Ariza - 05/01/2022 12:14 PM EST Symptoms: Swallowing Difficulty, Choking Outcome: Transfer to a nurse or provider NOW! Reason: Can't swallow saliva (drooling) The caller accepted this outcome Please contact pt at [phone] documented in this encounter Plan of Treatment Upcoming Encounters Date Type Department Care Team (Late st Contact Info) Description 05/12/2024 11:15 AM EDT Office Visit [facility] MEDICINE [address] [place] [address] Mary Moore FNP [address] [place] [address] documented as of this encounter Visit Diagnoses Not on filedocumented in this encounter Care Teams Hospital Laboratory Technician Relationship Specialty Start Date End Date Mary Moore FNP [address] [place] [address] PCP - General Family Medicine 12/25/20 documented as of this encounter
--- OUTSIDE RECORDS SUMMARY | 2024-04-01 19:29 | XMS_ITS | Encounter Summary ---
Author Organization [employer] Address [address] [place] [address] 7t [place] [address] Care Team Providers Care Gastroenterology Manager Name Role Phone Mary Moore Primary Care Provider [phone] Reason for Visit * Reason Comments Care Coordination CM/CHW outreach Encounter Details Date Type Department Care Team (Latest Contact Info) Description 03/19/2024 Patient Outreach [facility] MED & PEDS [address] [place], [place] [phone] Mary Moroe FNP [address] [place], [place] [phone] Care Coordination (CM/CHW outreach) Social History Tobacco Use Types Packs/Day Years [...] encounter Progress Notes * Sheree Noe - 03/19/2024 9:22 AM EST CHW Sheree Noe, placed outbound call to patient introducing herself from [facility] CM Department, in regard to offering services. Patient's name and was confirmed. Patient agrees to participate in program. Appt. for initial assessment scheduled for 03/24/24 @ 10AM tele appt withSIMON Quintero RN. CHW reinforced direct contact information or CM for any additional questions or concerns and extended clinic hours on Mondays and Wednesdays, and Walk-In Urgent Care Located in [place] [facility]. Patient provided with after-hours line for [facility], , which offer nighttime triage service and option to transfer to supervisor home restoration service provider if needed. Patient verbalizes understanding, and able to repeat back to technical report writer. documented in this encounter Plan of Treatment Upcoming Encounters Date Type Department Care Team (Late st Contact Info) Description 05/12/2024 11:15 AM EDT Office Visit [facility] MEDICINE [address] [place] [address] Mary Moore FNP [address] [place] [address] documented as of this encounter Visit Diagnoses Not on filedocumented in this encounter Additional Health Concerns Assessment Noted Time PHQ-9 Depression Total Score: 19 025 11:24 AM EST documented as of this encounter Care Teams Gastroenterology Manager Relationship Specialty Start Date End Date Mary Moore FNP [address] [place] [address] PCP - General Family Medicine 12/25/20 documented as of this encounter
--- OUTSIDE RECORDS SUMMARY | 2024-04-01 19:30 | XMS_ITS | Encounter Summary ---
Author Organization [employer] [facility] Address [address] [place] [address], [place] [address] Care Team Providers Care English Teacher Name Role Phone Mary Moore Primary Care Provider [phone] Encounter Details Date Type Department Care Team (Late Contact Info) Description 07/05/2022 Abstract [facility] MEDICINE [address] [place] [phone] Mary Moore FNP [address] [place], [place] [phone] Social History Tobacco Use Types Packs/Day Years [...] suspected to have Coronavirus/COVID-19? No / Unsure 07/08/2022 12:52 PM EDT documented as of this encounter Plan of Treatment Upcoming Encounters Date Type Department Care Team (Late Contact Info) Description 05/12/2024 11:15 AM EDT Office Visit [facility] MEDICINE [address] [place] [phone] Mary Moore FNP [address] [place], [place] [phone] documented as of this encounter Visit Diagnoses Not on filedocumented in this encounter Care Teams English Teacher Relationship Specialty Start Date End Date Mary Moore FNP [address] [place] [address] PCP - General Family Medicine 12/25/20 documented as of this encounter
--- OUTSIDE RECORDS SUMMARY | 2024-04-01 19:30 | XMS_ITS | Encounter Summary ---
Author Organization [employer] Address [address] 7[address] [place] [address] Care Team Providers Care Virology Teacher Name Role Phone Mary Moore SHEN Primary Care Provider [phone] Encounter Details Date Type Department Care Team (Latest Contact Info) Description 03/24/2024 Travel Social History Tobacco Use Types Packs/Day [...] Description 05/12/2024 11:15 AM EDT Office Visit [facility] MEDICINE [address] [place] [address] Mary Moore FNP [address] [place] [address] documented as of this encounter Visit Diagnoses Not on filedocumented in this encounter Additional Health Concerns Assessment Noted Time PHQ-9 Depression Total Score: 19 025 11:24 AM EST documented as of this encounter Care Teams Virology Teacher Relationship Specialty Start Date End Date Mary Moore FNP [address] [place] [address] PCP - General Family Medicine 12/25/20 documented as of this encounter
--- OUTSIDE RECORDS SUMMARY | 2024-04-01 19:30 | XMS_ITS | Encounter Summary ---
Author Organization [employer] Address [address] [place] [address] 7 [place] [address] Care Team Providers Care Power Cleaner Operator Name Role Phone Mary Moore Primary Care Provider Reason for Visit * Reason Comments Care Coordination CM/CHW appt Encounter Details Date Type Department Care Team (Latest Contact Info) Description 03/24/2024 Patient Outreach [facility] CHC MED & PEDS [address] [place], [place] [phone] Mary Moore FNP [address] [place], [place] [phone] Care Coordination (CM/CHW appt) Social History Tobacco Use Types Packs/Day Years [...] encounter Progress Notes * Sheree Noe - 03/24/2024 8:11 AM EST CHW Sheree Noe placed call to patient to r/s CM assessment appt due to CM not in. Patient agreed to 03/31/24 10am tele. CHW will remind patient of appt. documented in this encounter Plan of Treatment Upcoming Encounters Date Type Department Care Team ([facility] st Contact Info) Description 05/12/2024 11:15 AM EDT Office Visit [facility] MEDICINE [address] [place] [address] Mary Moore FNP [address] [place] [address] documented as of this encounter Visit Diagnoses Not on filedocumented in this encounter Additional Health Concerns Assessment Noted Time PHQ-9 Depression Total Score: 19 025 11:24 AM EST documented as of this encounter Care Teams Power Cleaner Operator Relationship Specialty Start Date End Date Mary Moore FNP [address] [place] [address] PCP - General Family Medicine 12/25/20 documented as of this encounter
[2024-04-12 10:33] LABS: HPV Genotype 16 Positive (Negative); HPV Genotype 18 Negative (Negative); HPV High Risk Positive (Negative)
== END 2024-04-01 16:01 | disposition home or self-care (01) ==
LOC: HO.HHCLNP 16:00
PROVIDERS: Visit Provider Advanced Practice Midwife
DX: R87.612 Low grade squamous intraepithelial lesion on cytologic smear of cervix (LGSIL) (principal)
CPT/HCPCS: 87626; 88175

== ENCOUNTER 2024-04-30 11:03 | Outpatient (REF) | payer MEDICAID, SELFPAY ==
--- NOTE | ~2024-04-30 | XR_ITS ---
EXAMINATION: XR RIBS, LEFT CLINICAL INFORMATION: Left-sided anterior rib pain 1 week, no injury. COMPARISON: None available. TECHNIQUE: 3 views of the left ribs were obtained. FINDINGS: Lungs are clear. No consolidation, pneumothorax, or pleural effusion. The cardiomediastinal silhouette and pulmonary vasculature are normal. Osseous structures are unremarkable. Ribs are intact. No fractures are identified. XR/XR ribs LT min 3V w CXR1V IMPRESSION: Unremarkable examination. Electronically signed by: Magan Artis MD 04/30/2024 12:09 PM [facility]
--- OUTSIDE RECORDS SUMMARY | 2024-04-30 12:53 | XMS_ITS | Encounter Summary ---
Author Organization [employer] Address [address]t [place] [address] Care Team Providers Care Artists' Booking Representative Name Role Phone Mary Moore SHEN Primary Care Provider [phone] Kevin Quintero RN Unavailable [phone] Encounter Details Date Type Department Care Team (Latest Contact Info) Description 04/30/2024 Travel Social History Tobacco Use Types Packs/Day Years Used Date Smoking Tobacco: Every Day Cigarettes Smokeless Tobacco: Never Comments:1/2 a pack if stres sed. Alcohol Use Standard Drinks/Week Comments Never 0 (1 standard drink = 0.6 oz pur e alcohol) Depression Answer Date Recorded Patient Health Questionnaire-9 Score 03/17/2024 Patient Health Questionnaire-9 Score 19 03/17/2024 [...] Care Team (Late st Contact Info) Description 05/03/2024 11:30 AM EST Office Visit [facility] MEDICINE [address] [place] [address] Cindi Escalona CNM [address] [place] [address] 05/12/2024 11:15 AM EDT Office Visit [address] [address] Mayr Moore FNP [address] [place] [address] documented as of this encounter Visit Diagnoses Not on filedocumented in this encounter Additional Health Concerns Assessment Noted Time PHQ-9 Depression Total Score: 19 025 11:24 AM EST documented as of this encounter Care Teams Artists' Booking Representative Relationship Specialty Start Date End Date Mary Moore FNP [address] [place] [address] PCP - General Family Medicine 12/25/20 Kevin Quintero, JO [address] [place] [address] Labor Law ProfessorRetaining Room Cutter 04/05/24 documented as of this encounter
--- OUTSIDE RECORDS SUMMARY | 2024-04-30 12:53 | XMS_ITS | Encounter Summary ---
Author Organization [employer] Address [address] [facility] 7t [place] [address] Care Team Providers Care Tanner Rotary Drum Continuous Process Name Role Phone Mary Moore Primary Care Provider [phone] Kevin Quintero RN Unavailable [phone] Reason for Visit * Reason Onset Date Comments Med Refill 04/26/2024 Encounter Details Date Type Department Care Team (Late st Contact Info) Description 04/26/2024 Refill [facility] MEDICINE [address] [place] [address] Mary Moore FNP [address] [place], [place] [phone] Low back pain at multiple sites; Discogenic lumbar pain Social History Tobacco Use Types Packs/Day Years Used Date Smoking Tobacco: Every Day Cigarettes Smokeless Tobacco: Never Comments:1/2 a pack if stres sed. Alcohol Use Standard Drinks/Week Comments Never 0 (1 standard drink = 0.6 oz pur e alcohol) Depression Answer Date Recorded Patient Health Questionnaire-9 Score 03/17/2024 Patient Health Questionnaire-9 Score 03/17/2024 Last PHQ-9: Questionnaire Data Not on [...] Description 05/03/2024 11:30 AM EST Office Visit [facility] MEDICINE [address] [place] [address] Cindi Escalona CNM [address] [place] [address] 05/12/2024 11:15 AM EDT Office Visit [facility] MEDICINE [address] [place] [address] Mary Moore FNP [address] [place] [address] documented as of this encounter Visit Diagnoses Diagnosis Low back pain at multiple sites Discogenic lumbar pain documented in this encounter Additional Health Concerns Assessment Noted Time PHQ-9 Depression Total Score: 19 025 11:24 AM EST documented as of this encounter Care Teams Tanner Rotary Drum Continuous Process Relationship Specialty Start Date End Date Mary Moore FNP [address] [place] [address] PCP - General Family Medicine 12/25/20 Kevin Quintero RN [address] [place] [phone] Computer Systems Technology InstructorCentral Supply Aide 04/05/24 documented as of this encounter
--- OUTSIDE RECORDS SUMMARY | 2024-04-30 12:53 | XMS_ITS | Encounter Summary ---
Author Organization [employer] Address [address] [place] [address] 7t [place] [address] Care Team Providers Care Chief Information Security Officer Name Role Phone Mary Moore Primary Care Provider [phone] Kevin Quintero RN Unavailable [phone] Encounter Details Date Type Department Care Team (Late Contact Info) Description 07/05/2022 Abstract [facility] MEDICINE [address] [place] [address] Mary Moore FNP [address] [place] [phone] Social History Tobacco Use Types Packs/Day Years [...] Department Care Team (Late Contact Info) Description 05/03/2024 11:30 AM EST Office Visit [facility] MEDICINE [address] [place] [address] Cindi Escalona CNM [address] [place], [place] [phone] 05/12/2024 11:15 AM EDT Office Visit [facility] MEDICINE [address] [place] [address] Mary Moore FNP [address] [place] [address] documented as of this encounter Visit Diagnoses Not on filedocumented in this encounter Care Teams Chief Information Security Officer Relationship Specialty Start Date End Date Mary Moore FNP [address] [place] [address] PCP - General Family Medicine 12/25/20 Kevin Quintero RN [address] [place] [address] Online Community ManagerBalance Wheel Motion Inspector 04/05/24 documented as of this encounter
--- OUTSIDE RECORDS SUMMARY | 2024-04-30 12:53 | XMS_ITS | Encounter Summary ---
Author Organization [employer] Address [address] [facility] 7t [place] [address] Care Team Providers Care Route Driver Salesperson Name Role Phone Mary Moore Primary Care Provider [phone] Kevin Quintero RN Unavailable [phone] Reason for Visit * Reason Onset Date Comments Prior Authorization 04/30/2024 Encounter Details Date Type Department Care Team (Late st Contact Info) Description 04/30/2024 Telephone [facility] MEDICINE [address] [place] [address] Mary Moore FNP [address] [place], [place] [phone] Prior Authorization Social History Tobacco Use Types Packs/Day Years [...] encounter Miscellaneous Notes * Telephone Encounter - Samir Banks - 04/30/2024 11:48 AM EST fluticasone (Flovent HFA) 220 MCG/ACT inhaler Tc from [facility] requesting a PA for inhaler listed above. Garment Steamer advised Pharmacist the message will be sent. documented in this encounter Plan of Treatment Upcoming Encounters Date Type Department Care Team (Late st Contact Info) Description 05/03/2024 11:30 AM EST Office Visit [facility] MEDICINE [address] [place] [address] Cindi Escalona CNM [address] [place] [address] 05/12/2024 11:15 AM EDT Office Visit [facility] MEDICINE [address] [place] [address] Mary Moore FNP [address] [place] [address] documented as of this encounter Visit Diagnoses Not on filedocumented in this encounter Additional Health Concerns Assessment Noted Time PHQ-9 Depression Total Score: 19 025 11:24 AM EST documented as of this encounter Care Teams Route Driver Salesperson Relationship Specialty Start Date End Date Mary Moore FNP [address] [place] [address] PCP - General Family Medicine 12/25/20 Kevin Quintero RN [address] [place] [address] Office SecretaryLevers Lace Machine Operator 04/05/24 documented as of this encounter
--- OUTSIDE RECORDS SUMMARY | 2024-04-30 12:53 | XMS_ITS | Encounter Summary ---
Author Organization [employer] Address [address] 7t [place] [address] Care Team Providers Care Door Opener Name Role Phone JessicaMary cat SHEN Primary Care Provider [phone] Kevin Quintero RN Unavailable [phone] Reason for Visit * Reason Comments LUQ pain Pt presents with mul tiple s/s: LUQ pain, back pain, anxiety, cough, etc Encounter Details Date Type Department Care Team (Latest Contact Info) Description 04/30/2024 10:00 AM EST Office Visit [facility] [address] [place] [address] Chest wall pain; Moderate persistent asthma, uncomplicated Social History Tobacco Use Types Packs/Day Years [...] Sign Reading Time Taken Comments Blood Pressure 122/81 04/30/2024 10:22 AM EST Pulse 67 04/30/2024 10:22 AM EST Temperature 37.2 ??C (98.9 ??F) 04/30/2024 10:[address] Respiratory Rate 20 04/30/2024 10:22 AM EST Oxygen Saturation 99% 04/30/2024 10:22 AM EST Inhaled Oxygen Concentration - - Weight 89.4 kg (197 lb) 04/30/2024 10:22 AM EST Height - - Body Mass Index 29.95 04/01/2024 10:33 AM EST documented in this encounter Plan of Treatment Upcoming Encounters Date Type Department Care Team (Late st Contact Info) Description 05/03/2024 11:30 AM EST Office Visit [facility] MEDICINE [address] [place] [address] Cindi Escalona CNM [address] [place] [address] 05/12/2024 11:15 AM EDT Office Visit [facility] MEDICINE [address] [place] [address] Mary Moore FNP [address] [place] [address] Scheduled Orders Name Type Priority Associated Diagnoses Orde r Schedule XR Ribs 2 Views Left with Chest Anteroposterior Imaging Routine Chest wall pain Expected: 04/30/2024, Expires: 04/30/2025 documented as of this encounter Procedures Procedure Name Priority Date/Time Associated Diagnosis Comments ECG 12-LEAD Routine 04/30/2024 12:33 PM EST Chest wall pain documented in this encounter Results * ECG 12 lead (04/30/2024 12:33 PM EST) 04/30/2024 10:4 2 AM EST Narrative Johnson Kaplan MD - 04/30/2024 12:33 PM EST NSR 67, no arrhythmia, no ST-T changes, no Q waes us Johnson Kaplan MD ECG ORDERABLES Edited Result - Final documented in this encounter Visit Diagnoses Diagnosis Chest wall pain Painful respiration Moderate persistent asthma, uncomplicated documented in this encounter Administered Medications Inactive Administered Medications - up to 3 most recent administrations Medication Order MAR Action Action Date Dose Rate Site albuterol (2.5 MG/3ML) 0.083% nebulizer solution 2.5 mg 2.5 mg, Nebulization, Once, On Fri04/30/24 at 1045, For 1 doseIndications:Chest wall pain Given 04/30/2024 10:45 AM EST 2.5 mg documented in this encounter Additional Health Concerns Assessment Noted Time PHQ-9 Depression Total Score: 19 025 11:24 AM EST documented as of this encounter Care Teams Door Opener Relationship Specialty Start Date End Date Mary Moore FNP [address] [place] [address] PCP - General Family Medicine 12/25/20 Kevin Quintero, RN [address] [place] [address] Bookbinder ChiefSupervisor Cooler Service 04/05/24 documented as of this encounter
--- OUTSIDE RECORDS SUMMARY | 2024-04-30 12:53 | XMS_ITS | Encounter Summary ---
Author Organization [employer] Address [address] 7t [place] [address] Care Team Providers Care Sales Marketing Coordinator Name Role Phone Mary Moore SHEN Primary Care Provider [phone] Kevin Quintero RN Unavailable [phone] Reason for Visit * Reason Onset Date Comments Care Management 04/05/2024 C3CM- initial as sessment/ enrollment Encounter Details Date Type Department Care Team (Late st Contact Info) Description 04/05/2024 Telephone [facility] [address] [place] [address] Kevin Quintero, RN [address] [place], [place] [phone] Care Management (C3- initial assessment/ enrollment) Social History Tobacco Use Types Packs/Day Years [...] is your housing situation today? I have wagnre rice 08/26/[address] you [...] Telephone Encounter - Kevin Quintero RN - 04/05/2024 8:25 AM EST SIMON Quintero RN, provided notification to PCP SHEN Hickey of patient's enrollment into C3 Complex Care Program. SIMON Quintero RN, completed care plan and sent to HIM to be scanned into the medical record. PCP notified and awaiting review from provider. CM plan: -assist with scheduling appts with specialists, providing appt reminders, and providing transportation to visits as needed - provide education on disease processes and management -provide resources based on positive SDOH needs * Telephone Encounter - Kevin Quintero RN - 04/05/2024 8:25 AM EST SIMON Quintero RN placed outbound call to patient for agreed upon time for initial assessment for enrollment into Adult Care Management Program. Patient's name, , and address were verified. Gabi is a 43 year old female with Hx of moderate persistent asthma without complication, discogenic lumbar pain, costochondritis, thyroid nodule, generalized anxiety disorder, cigarette smoker, severe episode of recurrent major depressive disorder. Patient reports being followed by [facility]. Patient states she is established with a therapist whom she meets with every Friday. She denies having a psychiatrist at this time. Patient states she is currently livingwith her mother and 21 year old son. Per patient, everything is under her mother's name. Patient reports wanting to move out of her mother's home. She states she becomes agitated, anxious, and irritable when her mother is present. Per patient, has applied for housing and is currently on a wait list. She states she applied for SSI and was recently denied. Per patient, requested a hearing and is waiting on that. Per patient, had a breakdown during her most recent in office visit. She states she met with after she saw PCP. Per patient, was concerned for her didn't want for her to leave thevisit. Per patient, was able to snap out of it and was fine afterwards. She states she tries to keep her emotions under control because of her son. She states she worries about him under her mother'scare and does not want to go to the hospital for this reason. Patient reports SI in the past but not currently. She states she can contact her therapist on an as needed basis and confirms having the number to crisis. Patient reports difficulty with sleep. She states she suffers from insomnia. Patient recently started on magnesium and melatonin which reports taking with no effect. Patient reports being mostly independent with ADLs. She states she does have some difficulties with dressing the lower body due to right knee pain. Per patient, uses a cane as needed for ambulation when pain is severe. Patient recently referred to PT. She states she has contacted the office and has not been able toschedule an appt. CM will assist with coordinating care. Patient reports taking tylenol and ibuprofen for pain. She also reports use of lidocaine patches. Patient reports compliance to medication regimen and denies any concerns or need for refills at this time. Patient expressed personal goal of getting her own apartment. CM/CHW will assist with providing resources. She is aware of her scheduled visit tomorrow with Cindi at 10:30am. She denies any any barriers to attending. She also states she is scheduled for a mammogram at [facility] on 04/26/24. CHW will assist with PT1. Patient denies any further needs or concerns at this time. Care management program explained and contact information given. Patient verbalizes understanding, and able to repeat back to assembly instructions writer. A follow up call will be placed within 10 days, patient agrees with plan. documented in this encounter Plan of Treatment Upcoming Encounters Date Type Department Care Team (Late st Contact Info) Description 05/03/2024 11:30 AM EST Office Visit [facility] [address] [place] [address] Cindi Escalona CNM [address] [place] [address] 05/12/2024 11:15 AM EDT Office Visit [facility] [address] [place] [address] Mary Moore FNP [address] [place] [address] documented as of this encounter Visit Diagnoses Not on filedocumented in this encounter Additional Health Concerns Assessment Noted Time PHQ-9 Depression Total Score: 19 025 11:24 AM EST documented as of this encounter Care Teams Sales Marketing Coordinator Relationship Specialty Start Date End Date Mary Moore FNP [address] [place] [address] PCP - General Family Medicine 12/25/20 Kevin Quintero RN [address] [place] [address] Inverted Block OperatorTax Director 04/05/24 documented as of this encounter
--- OUTSIDE RECORDS SUMMARY | 2024-04-30 12:53 | XMS_ITS | Encounter Summary ---
Author Organization [employer] Address [address] [facility] 7t [place] [address] Care Team Providers Care Forklift Driver Name Role Phone Mary Moore Primary Care Provider [phone] Kevin Quintero RN Unavailable [phone] Reason for Visit * Reason Comments Care Coordination SDOH f/u Encounter Details Date Type Department Care Team (Latest Contact Info) Description 04/12/2024 Patient Outreach [facility] [address] [place] [address] Mary Moore FNP [address] [place], [place] [phone] Care Coordination (SDOH f/u) Social History Tobacco Use Types Packs/Day Years [...] encounter Progress Notes * Sheree Noe - 04/12/2024 10:47 AM EST CHW Sheree Noe/CM Kevin Quintero RN placed outbound call to patient for follow up call on SDOH needs. No answer at this time. LVM introducing herself from [facility] CM Department. Requested call back. CHW reinforced direct contact information or for any additional questions or concerns and extended clinic hours on Mondays and Wednesdays, and Walk-In Urgent Care Located in [facility]. Patient provided with after-hours line for [facility], , which offer night time triage service and option to transfer to production control analyst provider if needed. CHW will attempt another follow up call within 10 days. documented in this encounter Plan of Treatment Upcoming Encounters Date Type Department Care Team ([facility] st Contact Info) Description 05/03/2024 11:30 AM EST Office Visit [facility] [address] [place] [address] Cindi Escalona CNM [address] [place] [address] 05/12/2024 11:15 AM EDT Office Visit [facility] [address] [place] [address] Mary Moore FNP [address] [place] [address] documented as of this encounter Visit Diagnoses Not on filedocumented in this encounter Additional Health Concerns Assessment Noted Time PHQ-9 Depression Total Score: 19 025 11:24 AM EST documented as of this encounter Care Teams Forklift Driver Relationship Specialty Start Date End Date Mary Moore FNP [address] [place] [address] PCP - General Family Medicine 12/25/20 Kevin Quintero RN [address] [place] [address] Memorial Marker DesignerVegetable Farmer 04/05/24 documented as of this encounter
--- OUTSIDE RECORDS SUMMARY | 2024-04-30 12:53 | XMS_ITS | Encounter Summary ---
Author Organization [employer] Address [address] [facility] 7t [place] [address] Care Team Providers Care Prosthetics Technician Name Role Phone Mary Moore SHEN Primary Care Provider [phone] Reason for Visit * Reason Onset Date Comments Pain Group 04/02/2024 Encounter Details Date Type Department Care Team (Late st Contact Info) Description 04/02/2024 Telephone [facility] [address] [place] [address] Rachel [place] [facility] Social History Tobacco Use Types Packs/Day Years [...] encounter Miscellaneous Notes * Telephone Encounter - Rachel Luther [place] - 04/02/2024 12:37 PM EST T/c to schedule pt for pain group ion Friday04/05/24. Pt stated she is no longer interested in Pain group. documented in this encounter Plan of Treatment Upcoming Encounters Date Type Department Care Team (Late st Contact Info) Description 05/03/2024 11:30 AM EST Office Visit [facility] [address] [place] [address] Cindi Escalona CNM [address] [place] [address] 05/12/2024 11:15 AM EDT Office Visit [facility] [address] [place] [address] Mary Moore FNP [address] [place] [address] documented as of this encounter Visit Diagnoses Not on filedocumented in this encounter Additional Health Concerns Assessment Noted Time PHQ-9 Depression Total Score: 19 025 11:24 AM EST documented as of this encounter Care Teams Prosthetics Technician Relationship Specialty Start Date End Date Mary Moore FNP [address] [place] [address] PCP - General Family Medicine 12/25/20 documented as of this encounter
--- OUTSIDE RECORDS SUMMARY | 2024-04-30 12:53 | XMS_ITS | Encounter Summary ---
Author Organization [employer] Address [address] 7[address] [place] [address] Care Team Providers Care Crimper Assembler Name Role Phone Mary Moore SHEN Primary Care Provider [phone] Kevin Quintero RN Unavailable [phone] Reason for Visit * Reason Onset Date Comments Care Management 04/12/2024 C3CM- f/u call l Encounter Details Date Type Department Care Team (Late st Contact Info) Description 04/12/2024 Telephone [facility] [address] [place] [address] Kevin Quintero, RN [address] [place], [place] [phone] Care Management (C3CM- f/u call lvm) Social History Tobacco Use Types Packs/Day Years [...] Telephone Encounter - Kevin Quintero RN - 04/12/2024 10:47 AM EST CM Kevin Quintero RN placed outbound call with CHW Sheree Noe to patient for follow up call. Noanswer at this time. LVM introducing herself from [facility] CM Department. Requested call back. CM reinforced direct contact information or CHW for any additional questions or concerns. Education provided on [facility]. Patient provided with after-hours line for [facility], , which offer night time triage service and option to transfer to client relations representative provider if needed. CM will attempt another follow up call within 10 days. documented in this encounter Plan of Treatment Upcoming Encounters Date Type Department Care Team ([facility] st Contact Info) Description 05/03/2024 11:30 AM EST Office Visit [facility] [address] [place] [address] Cindi Escalona CNM [address] [place] [address] 05/12/2024 11:15 AM EDT Office Visit [facility] [address] [place] [address] Mary Moore FNP [address] [place] [address] documented as of this encounter Visit Diagnoses Not on filedocumented in this encounter Additional Health Concerns Assessment Noted Time PHQ-9 Depression Total Score: 19 025 11:24 AM EST documented as of this encounter Care Teams Crimper Assembler Relationship Specialty Start Date End Date Mary Moore FNP [address] [place] [address] PCP - General Family Medicine 12/25/20 Kevin Quintero RN [address] [place] [address] Voice Studies DirectorPneumatic System Conveyor Operator 04/05/24 documented as of this encounter
--- OUTSIDE RECORDS SUMMARY | 2024-04-30 12:53 | XMS_ITS | Encounter Summary ---
Author Organization [employer] Address [address] [facility] 7t [place] [address] Care Team Providers Care Wafer Fabrication Operator Name Role Phone Mary Moore Primary Care Provider [phone] Kevin Quintero RN Unavailable [phone] Reason for Visit * Reason Comments Care Coordination PT1 Encounter Details Date Type Department Care Team (Latest Contact Info) Description 04/28/2024 Patient Outreach [facility] [address] [place], [place] [phone] Mary Moore FNP [address] [place], [place] [phone] Care Coordination (PT1) Social History Tobacco Use Types Packs/Day Years [...] encounter Progress Notes * Sheree Noe - 04/28/2024 9:04 AM EST CHW Sheree Noe scheduled PT1 to upcoming appts for 05/03/24 at 05/03/24 with GEETA Escalona andappt for 05/12/24 11:15am with ARTEMIO Moore both at [facility]. M with details. CHW will follow up with patient before appts. documented in this encounter Plan of Treatment Upcoming Encounters Date Type Department Care Team (Late st Contact Info) Description 05/03/2024 11:30 AM EST Office Visit [facility] [address] [place] [address] Cindi Escalona CNM [address] [place] [address] 05/12/2024 11:15 AM EDT Office Visit [facility] [address] [place] [address] Mary Moore FNP [address] [place] [address] documented as of this encounter Visit Diagnoses Not on filedocumented in this encounter Additional Health Concerns Assessment Noted Time PHQ-9 Depression Total Score: 19 025 11:24 AM EST documented as of this encounter Care Teams Wafer Fabrication Operator Relationship Specialty Start Date End Date Mary Moore FNP [address] [place] [address] PCP - General Family Medicine 12/25/20 Kevin Quintero, JO [address] [place] [address] Blood Bank TechnologistDetailer 04/05/24 documented as of this encounter
--- OUTSIDE RECORDS SUMMARY | 2024-04-30 12:53 | XMS_ITS | Encounter Summary ---
Author Organization [employer] Address [address] [place] [address] [address] [place] [address] Care Team Providers Care Gear Tooth Lapping Machine Operator Name Role Phone Mary Moore SHEN Primary Care Provider [phone] Reason for Referral * Imaging (Urgent) - Closed Specialty Diagnoses / Procedures Referred By Contac t Referred To Contact Radiology Diagnoses Menorrhagia with regular cycle Procedures Us Pelvis complete Cindi Alvarez CNM [address] [place], [place] Phone: tel: fax: [address] Phone: tel: fax: Referral ID Status Reason Start Date Expiration Date Visits Re quested Visits Authorized [id number] Closed 04/01/2024 04/01/2025 1 1 * Imaging (Urgent) - Closed Specialty Diagnoses / Procedures Referred By Contac t Referred To Contact Radiology Diagnoses Menorrhagia with regular cycle Procedures US Pelvis Transvaginal Cindi Alvarez CNM [address] [place] [address] Phone: tel: fax: [address] Phone: tel: fax: Referral ID Status Reason Start Date Expiration Date Visits Re quested Visits Authorized [id number] Closed 04/01/2024 04/01/2025 1 1 Encounter Details Date Type Department Care Team (Latest Contact Info) Description 04/01/2024 10:30 AM EST Procedure Visit [facility] [address] [place] [address] Cindi Alvarez CNM [address] [place] [address] LGSIL on Pap smear of cervix (Primary [...] in this encounter Progress Notes * Cindi Alvarez, GEETA - 04/01/2024 10:30 AM EST Subjective [...] have genetic consult. documented in this encounter Miscellaneous Notes * Result Encounter Note - Cindi Alvarez CNM - 04/01/2024 10:30 AM EST ASCUS, HPV pos, subtype 16 pos. For colpo per [facility]. Referral placed and cervical cancer tracker updated. documented in this encounter Plan of Treatment Upcoming Encounters Date Type Department Care Team (Late st Contact Info) Description 05/03/2024 11:30 AM EST Office Visit [address] [address] Cindi Alvarez CNM [address] [place] [address] 05/12/2024 11:15 AM EDT Office Visit [address] [address] Mary Moore FNP [address] [place] [address] Scheduled Orders Name Type Priority Associated Diagnoses Orde r Schedule CBC Lab Routine Menorrhagia with regular cycle [...] Expires: 04/01/2025 documented as of this encounter Procedures Procedure Name Priority Date/Time Associated Diagnosis Comments PAP SMEAR Routine 04/01/2024 11:10 AM EST LGSIL on Pap smear of cervix documented in this encounter Results * Pap Smear (04/01/2024 11:10 AM EST) Swab Cervix uteri structure / Unknown 04/01/2024 11:10 AM EST 04/02/2024 6:30 AM EST Narrative [facility] - 04/14/2024 6:07 PM EST ----- ------- Name: Gabi Wilks ? Age/Sex: 43/F ? : 1980 Unit#: [id number] ?? Attend Dr: CINDI ALVAREZ [facility] ?Re04/01/24 ?Status: DEP REF ? Location: [facility] ? Disch: ? ----- ------- SPEC : [id number] ? RECD: 04/02/24-629 ? STATUS: ??SOUT ? REQ NUM: [id number] ? ROBEL: 04/01/24-1110 ? SUBM DR: CINDI ALVAREZ [facility] ? ENTERED: ??04/05/24-921 ?SP TYPE: Pap Smr ?OTHR DR: ? ORDERED: ??Pap Smear, PAP path review ? Interpretation ?? General Category: ?? Epithelial cell abnormality. ?? Adequacy: ? Transformation zone component present. ?? Interpretation: ?Atypical squamous cells of undetermined significance. ?Scant cellularity. ? HPV High Risk: ??Positive ? HPV Genotyping 16: ??Positive ?? HPV Genotyping 18: ??Negative ?Clinical Information LMP: Unknown date Previous PAP test: 2020, LSIL, HPV pos 2020, preceded by neg colpo and ASCUS HPV pos PAP ? Material Received ?? ThinPrep-Cervical ----- ------- Signed (signature on file) Jazmín Sheehan 04/14/241806 ? ----- ------- ? END OF REPORT ? us Cindi Alvarez [facility] CYTOLOGY ORDERABLES F inal Result [facility] [address] [place] [address] [phone] documented in this encounter Visit Diagnoses Diagnosis LGSIL on Pap smear of cervix- Primary Menorrhagia with regular cycle Dyslipidemia Other and unspecified hyperlipidemia documented in this encounter Additional Health Concerns Assessment Noted Time PHQ-9 Depression Total Score: 19 025 11:24 AM EST documented as of this encounter Care Teams Gear Tooth Lapping Machine Operator Relationship Specialty Start Date End Date Mary Moore FNP [address] [place] [address] PCP - General Family Medicine 12/25/20 documented as of this encounter
--- OUTSIDE RECORDS SUMMARY | 2024-04-30 12:53 | XMS_ITS | Encounter Summary ---
Author Organization [email or web address] Address [address] [place] [address] 7t [place] [address] Care Team Providers Care Slot Machine Department Floorperson Name Role Phone Mary Moore Primary Care Provider [phone] Kevin Quintero RN Unavailable [phone] Reason for Visit * Reason Onset Date Comments Triage 05/01/2022 Encounter Details Date Type Department Care Team (Late st Contact Info) Description 05/01/2022 Telephone [facility] [address] [place] [address] Mary Moore FNP [address] [place], [place] [phone] Triage Social History Tobacco Use Types Packs/Day [...] accepted this outcome Please contact pt at [phone] documented in this encounter Plan of Treatment Upcoming Encounters Date Type Department Care Team (Late st Contact Info) Description 05/03/2024 11:30 AM EST Office Visit [address] [address] Cindi Escalona CNM [address] [place] [address] 05/12/2024 11:15 AM EDT Office Visit [address] [address] Mary Moore FNP [address] [place] [address] documented as of this encounter Visit Diagnoses Not on filedocumented in this encounter Care Teams Slot Machine Department Floorperson Relationship Specialty Start Date End Date Mary Moore FNP [address] [place] [address] PCP - General Family Medicine 12/25/20 Kevin Quintero RN [address] [place] [address] Information Services Vice PresidentRum Processing Operator 04/05/24 documented as of this encounter
--- OUTSIDE RECORDS SUMMARY | 2024-04-30 12:53 | XMS_ITS | Encounter Summary ---
Author Organization [employer] Address [address] [facility] [address] [place] [address] Care Team Providers Care Head Athletic Trainer Name Role Phone Mary Moore Primary Care Provider Kevin Quintero RN Unavailable [phone] Reason for Visit * Reason Onset Date Comments Care Management 04/26/2024 C3CM- f/u call Encounter Details Date Type Department Care Team ([facility] st Contact Info) Description 04/26/[address] [facility] MEDICINE [address] [place] [address] Mary Moore FNP [address] [place], [place] [id number] Care Management (C3CM- f/u call) Social History Tobacco Use Types Packs/Day Years [...] Telephone Encounter - Kevin Quintero RN - 04/27/2024 9:25 AM EST Call to patient. Patient agreeable to visit on 05/03/24 at 11:30am to discuss PAP results. PAMELA Bentley will assist with PT1 and will f/u with patient. * Telephone Encounter - Cindi Escalona CNM - 04/26/2024 12:53 PM EST She is welcome to have visit with me in person or on phone if she wants. She had a colposcopy previously in 2020 for mildly abnormal pap (similar results to what she had recently). * Telephone Encounter - Kevin Quintero RN - 04/26/2024 12:35 PM EST CM Kevin Quintero RN and PAMELA Noe placed outbound call to patient. Patient's name, and address confirmed. Patient states is doing well with no recent illnesses or emergency room visits.Patient confirms attending visit for PAP on 04/01/24. Patient is aware of her results. She states she was called with the colposcopy appt but declined the visit stating that she has further questions on the results as well as the procedure. CM went over results with patient and reinforced the importance of completing the f/u testing. She verbalizes understanding but would like a call back from herprovider. CM will send to Cindi to review. Patient missed her scheduled US pelvis on 04/08 and the [place] that she [place] [facility] CM advised she [place] [facility] [place] reschedule these visits. CM provided her with the contact information and advised that she please contact CM/CHW with appt details so that the PT1 can be set up. Patient aware that fasting labs were ordered. She states she has not yet completed them and is asking for PT1. CHW will assist. Patient states she is doing well emotionally today. She is aware of her visit with psych on 05/17. She is also aware of her scheduled PT visit on 05/07/24 f/u with PCP on 05/12/24. PT1 will be set for these appts. Patient denies any immediate needs or concerns at this time. No further questions or concerns. CM reinforced direct contact information or CHW for any additional questions or concerns. Education provided on [facility] located in [facility] of [facility]. Patient provided with after-hours line for [facility], , which offer night time triage service and option to transfer to projection engineer provider if needed. Patient verbalizes understanding, and able to repeat back to commercial underwriter. A follow up call will be placed within 10 days, patientagrees with plan. documented in this encounter Plan of Treatment Upcoming Encounters Date Type Department Care Team ([facility] st Contact Info) Description 05/03/2024 11:30 AM EST Office Visit [facility] MEDICINE [address] [place] [address] Cindi Escalona CNM [address] [place] [address] 05/12/2024 11:15 AM EDT Office Visit [facility] MEDICINE [address] [place] [address] Mary Moore FNP [address] [place] [address] documented as of this encounter Visit Diagnoses Not on filedocumented in this encounter Additional Health Concerns Assessment Noted Time PHQ-9 Depression Total Score: 19 025 11:24 AM EST documented as of this encounter Care Teams Head Athletic Trainer Relationship Specialty Start Date End Date Mary Moore FNP [address] [place] [address] PCP - General Family Medicine 12/25/20 Kevin Quintero, JO [address] [place] [address] Load Dispatcher LocalPolymer Chemist 04/05/24 documented as of this encounter
--- OUTSIDE RECORDS SUMMARY | 2024-04-30 12:53 | XMS_ITS | Encounter Summary ---
Author Organization [employer] Address [address] [place] [address] Care Team Providers Care Chipping Machine Operator Name Role Phone Mary Moore SHEN Primary Care Provider [phone] Kevin Quintero RN Unavailable [phone] Encounter Details Date Type Department Care Team (Late st Contact Info) Description 04/01/2024 Orders Only [facility] MEDICINE [address] [place] [address] Khadra Machuca MD [address] [place] [address] Social History Tobacco Use Types Packs/Day Years [...] as of this encounter Miscellaneous Notes * Result Encounter Note - Cindi Escalona CNM - 04/01/2024 11:59 PM EST HPV positive or subtype 16, pap still pending. Will await pap results to determine next steps documented in this encounter Plan of Treatment Upcoming Encounters Date Type Department Care Team (Late st Contact Info) Description 05/03/2024 11:30 AM EST Office Visit [facility] MEDICINE [address] [place] [phone] Cindi Escalona CNM [address] [place] [address] 05/12/2024 11:15 AM EDT Office Visit [facility] MEDICINE [address] [place] [id number] Mary Moore FNP [address] [place] [address] documented as of this encounter Procedures Procedure Name Priority Date/Time Associated Diagnosis Comments HPV DNA, LOW/HIGH RISK Routine 04/01/2024 11:10 AM EST documented in this encounter Results * (ABNORMAL) HPV DNA, Low/High Risk (04/01/2024 11:10 AM EST) HPV High Risk Positive(A) Negative [facility] HPV Genotype 16 Positive(A) Negative [facility] HPV Genotype 18 Negative Negative [facility] Comment:HPV testing performe d at [facility] (CLIA#[id number]), [address] [place] [id number].Testing for HPV was performed using the Patrice MISTI 6800system. The presence of HPV in the female genital tract isassociated with a number of diseases, including cervicalcarcinoma. The HPV DNA high risk pool tests for HPV 31, 33,35, 39, 45, 51, 52, 56, 58, 59, 66 and 68. The testing forHPV 16 and 18 genotypes has also been performed. A positiveresult indicates detection of nucleic acid sequences fromone or more subtypes, whereas a negative result indicatessuch sequences were not detected. 04/01/2024 11:1 0 AM EST 04/05/2024 8:55 AM EST us Khadra Machuca MD LAB BLOOD ORDERABLES Final Result [facility] [address] [place] [address] [phone] documented in this encounter Visit Diagnoses Not on filedocumented in this encounter Additional Health Concerns Assessment Noted Time PHQ-9 Depression Total Score: 19 025 11:24 AM EST documented as of this encounter Care Teams Chipping Machine Operator Relationship Specialty Start Date End Date Mary Moore FNP [address] [place] [address] PCP - General Family Medicine 12/25/20 Kevin Quintero RN [address] [place] [address] Real Estate RecruiterHome Care Nurse 04/05/24 documented as of this encounter
--- OUTSIDE RECORDS SUMMARY | 2024-04-30 12:53 | XMS_ITS | Encounter Summary ---
Author Organization [employer] Address [address] [place] [address] Care Team Providers Care Tankroom Tender Name Role Phone Mary Moore SHEN Primary Care Provider [phone] Kevin Quintero RN Unavailable [phone] Reason for Visit * Reason Onset Date Comments [facility] triage 04/30/2024 Encounter Details Date Type Department Care Team (Late st Contact Info) Description 04/30/2024 Telephone [facility] [address] [place] [address] Shayy Wise RN [facility] triage Social History Tobacco Use Types Packs/Day Years [...] encounter Miscellaneous Notes * Telephone Encounter - Shayy Wise RN - 04/30/2024 10:25 AM EST Pt presents to [facility] reporting to FD: chest pain and right arm tingling Pt taken for immediate triage y this sign writer hand 1000: Pt is upset about her son and her mother being against her . After reassurance, pt's history obtained, as well as VS, EKG VSS: Weight:197 lbs BP sitting, left arm 122/81 HR 70 RR 20 non labored R/A sat 99% PO temp 98 Pt describes reproducible pain at the area of her upper left rib cage. This is worse with a cough. She has een unable to use her MDI because it is too hard . Pt describes smoking since she has been 19, is expressing interest in quitting because I am falling apart. But I donet know if I can do itwith all this stress. Trying to smoke made my cough and everything worse . Pt endorses nightly smoking of cannabis also, she states she needs it for all this anxiety and fighting . EKG: P/MA: 108/114 ms QRS: 82 ms QT/Qtc: 418/441 ms P/QRS/T axis: -54927/37 eg HR: 67 bpm Sinus rhythm 1020 LS with coarse rhonci through out. Slight exp wheeze Per protocol, albuterol nebulizer initiated Pt states I would like one of these machines . Pt advised to d/w Pt describes pain in LUQ, back, and rib cage. The pain is worse with movement, palpation and cough. 1025 EKG given to providers RENUKA for review Pt goes on to express feeling extremely stressed at home . She lives with her 21 yr old son and mother, who want me to do everything for them: She moved up from [facility] 8 years ago. She states I keep to myself , she does not have any social supports available. She does endorse seeking out supports. Pt is in NAD, nebulizer in process Awaits provider eval documented in this encounter Plan of Treatment Upcoming Encounters Date Type Department Care Team (Late st Contact Info) Description 05/03/2024 11:30 AM EST Office Visit [facility] MEDICINE [address] [place] [phone] Cindi Escalona CNM [address] [place] [address] 05/12/2024 11:15 AM EDT Office Visit [address] [address] Mary Moore FNP [address] [place] [address] documented as of this encounter Visit Diagnoses Not on filedocumented in this encounter Additional Health Concerns Assessment Noted Time PHQ-9 Depression Total Score: 19 025 11:24 AM EST documented as of this encounter Care Teams Tankroom Tender Relationship Specialty Start Date End Date Mary Moore FNP [address] [place] [address] PCP - General Family Medicine 12/25/20 Kevin Quintero, JO [address] [place] [address] Riding CoachWeighter 04/05/24 documented as of this encounter
--- OUTSIDE RECORDS SUMMARY | 2024-04-30 12:53 | XMS_ITS | Clinical Summary ---
Author Organization [employer] Address [address] [facility] 7t [place] [address] Care Team Providers Care Chief Minister Name Role Phone JessicaMary cat SHEN Primary Care Provider Kevin Quintero RN Unavailable [phone] Allergies No known active allergies Medications * This document contains information received from the source organization and may not represent a complete record from that organization. ulipristal (Starla) 30 mg tablet Take 1 tablet by mouth. 021 Active cyclobenzaprine (Flexeril) 10 MG tabletIndication s:Acute left-sided low back pain without sciatica Take 1 tablet (10 mg) by mouth if needed in the morning, at noon, and at bedtime for muscle spasms for up to [address]. [address] while on this medication 30 tablet 024 Active fluticasone (Flonase) 50 MCG/ACT nasal spray Administer 1-2 sprays into each nostril if needed each day for allergies. Shake gently. Before first use, prime pump. After use, clean tip and replace cap. 16 g 5 024 2024 Active ibuprofen 800 MG tabletIndication s:Low back pain at multiple sites,Discogenic lumbar pain Take 1 tablet (800 mg) by mouth every 8 (eight) hours if needed (pain or fever). 100 tablet 3 024 Active acetaminophen (Tylenol Extra Strength) 500 MG tabletIndication s:Low back pain at multiple sites,Discogenic lumbar pain Take 1-2 tablets (500-1,000 mg) by mouth every 8 (eight) hours if needed (pain or fever). 100 tablet 3 024 2024 Active lidocaine (Lidoderm) 5 % patch Apply 1 patch topically in the morning as needed for knee pain. Remove & discard patch within 12 hours or as directed by provider. 30 patch 11 Active melatonin 5 MG tabletIndication s:Sleep difficulties Take 1 tablet (5 mg) by mouth at bedtime. Take 60 minutes before bed. 90 tablet 1 025 2025 Active Magnesium 400 MG capsuleIndicatio ns:Sleep difficulties Take 400 mg by mouth at bedtime. Take 60 minutes before bed. 90 capsule 1 025 2025 Active Diclofenac Sodium 1 % gelIndications:L ow back pain at multiple sites,Discogenic lumbar pain APPLY 1 APPLICATION TOPICALLY IF NEEDED IN THE MORNING, AT NOON, IN THE EVENING AND AT BEDTIME FOR PAIN 100 g 5 025 Active albuterol (ProAir HFA) 108 (90 Base) MCG/ACT inhalerIndicatio ns:Moderate persistent asthma, uncomplicated Inhale 2 puffs every 4 (four) hours if needed for wheezing or shortness of breath. 18 g 3 025 2025 Active fluticasone (Flovent HFA) 220 MCG/ACT inhalerIndicatio ns:Moderate persistent asthma, uncomplicated Inhale 1 puff every 12 (twelve) hours. 12 g 3 025 2024 Active Spacer/Aero-Hold ing Chambers (AeroChamber MV) inhalerIndicatio ns:Moderate persistent asthma, uncomplicated Use as instructed 1 each 2 025 2025 Active fluticasone (Flovent HFA) 220 MCG/ACT inhalerIndicatio ns:Moderate persistent asthma, uncomplicated Inhale 1 puff every 12 (twelve) hours. 12 g 3 023 2024 Discontinued(R eorder (will not trigger notification to Pharmacy)) Diclofenac Sodium 1 % gelIndications:L ow back pain at multiple sites,Discogenic lumbar pain APPLY 1 APPLICATION TOPICALLY IF NEEDED IN THE MORNING, AT NOON, IN THE EVENING AND AT BEDTIME FOR PAIN 100 g 5 024 2024 Discontinued(R eorder (will not trigger notification to Pharmacy)) albuterol (ProAir HFA) 108 (90 Base) MCG/ACT inhalerIndicatio ns:Moderate persistent asthma, uncomplicated Inhale 2 puffs every 4 (four) hours if needed for wheezing or shortness of breath. 18 g 3 024 2024 Discontinued(R eorder (will not trigger notification to Pharmacy)) Hospital, Clinic, or Other Facility Administered Medication Ordered Dose Route Frequency Start Date End Date Status albuterol (2.5 MG/3ML) 0.083% nebulizer solution 2.5 mgIndications:Chest wall pain 2.5 mg NEBULIZATION Once 04/30/2024 04/30/2024 Ended Active Problems Problem Noted Date Diagnosed Date Menorrhagia with regular cycle 04/01/2024 Marijuana use 03/19/2024 Healthcare maintenance 09/03/2023 Overview (03/18/2024): OPH: CEE 10/21/22 at [facility]. Due Oct 2024 Last PE: 09/03/23 Tdap: last 09/03/23 Routine Cancer Screening Breast CA: Last available May 2019: BIRADS 3. Order placed 03/17/2024 Cervical CA: ASCUS HPV pos, neg 16/18 in 02/2020, followed by negative colposcopy 06/2020. Jan 2021 LSIL HPV pos. Due for repeat Jan 2022. Scheduled 04/01/2024 at [facility] Colon CA: routine screening 45-75 years [...] of self harm Referred for OP therapy ([facility]). Plan for initial appt within the next [...] out help PLAN: 1. Follow up with [facility]: Not recommended for follow-up 2. Patient goal [...] if interested in smoking cessation resources through [facility] Discogenic lumbar pain 01/18/2021 Overview (03/18/2024): Specialists: previously referred to physiatry. They had recommended PT and to return if worsening for consideration of injection Continue with symptomatic relief measures such as warm bath/shower, APAP & ibuprofen PRN, stretching Referral to physical therapy placed 09/03/23, re-sent on 03/18/2024 Assessment & Plan (03/18/2024 9:49 AM EST): Referral to physical therapy, also scheduled for [facility] chronic pain group clinic Assessment & Plan (07/11/2022 4:32 PM EDT): Follow up as needed Generalized anxiety disorder 01/06/2021 Assessment & Plan (03/18/2024 9:52 AM EST): BE completed today, see documentation for further details BH: Weekly therapy sessions through [facility] Pharmacotherapy: Discussed risks/benefits, she will consider Primary goal: Housing. Referred to care management team for further assistance and support. Thyroid nodule 01/06/2021 Encounters * This document contains information received from the source organization and may not represent a complete record from that organization. Date Type Department Care Team Description 04/30/2024 10:00 AM EST Office Visit [facility] [address] [place], [place] [phone] Chest wall pain; Moderate persistent asthma, uncomplicated 04/30/2024 Orders Only [facility] [address] [place] [address] Johnson Kaplan MD 04/30/2024 Telephone [facility] [address] [place], [place] [phone] Mary Moore FNP Prior Authorization 04/30/2024 Telephone [facility] [address] [place] [phone] Shayy Wise, JO [facility] triage 04/30/2024 Travel 04/28/2024 Patient Outreach [facility] [address] [place] [address] Mary Moore FNP Care Coordination (PT1) 04/26/[address] [address] Mary Moore FNP Care Management (C3CM- f/u call) 04/26/2024 Patient Outreach [facility] [address] [place] [address] Mary Moore FNP Care Coordination (SDOH f/u) 04/26/[address] [address] Mary Moore FNP Low back pain at multiple sites; Discogenic lumbar pain 04/15/2024 Orders Only [address] [address] Malcolm Alvarez CNM Atypical squamous cell changes of undetermined significance (ASCUS) on cervical cytology with positive 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 virus (HPV) (Primary Dx) 04/12/2024 Patient Outreach [facility] [address] [place], [place] [phone] Mary Moore FNP Care Coordination (SDOH f/u) 04/12/[address] [address] Kevin Quintero, RN Care Management (C3CM- f/u call lvm) 04/05/[address] [address] Kevin Quintero, RN Care Management (C3CM- initial assessment/ enrollment) 04/02/[address] [address] Rachel Luther [place] [facility] 04/01/2024 10:30 AM EST Procedure Visit [facility] [address] [place] [address] Malcolm Alvarez CNM LGSIL on Pap smear of cervix (Primary Dx); Menorrhagia with regular cycle; Dyslipidemia 04/01/2024 Orders Only [address] [address] Khadra Machuca MD 04/01/2024 Travel 03/25/2024 Travel 03/24/2024 Travel 03/24/2024 Patient Outreach [facility] [address] [place] [address] Mary Moore FNP Care Coordination (CM/CHW appt) 03/23/2024 Patient Outreach [facility] [address] [place] [address] Mary Moore FNP Care Coordination (CM/CHW appt reminder) 03/19/2024 Patient Outreach [facility] [address] [place] [address] Mary Moore FNP Care Coordination (CM/CHW outreach) 03/19/[address] [address] Kevin Quintero RN Care Management (C3CM- chart review) 03/17/2024 11:15 AM EST Office Visit [address] [address] Mary Moore FNP Generalized anxiety disorder (Primary Dx); Healthcare maintenance; Encounter for screening mammogram for malignant neoplasm of breast; Discogenic lumbar pain; Sleep difficulties 03/17/2024 Travel 03/17/[address] [address] Nishant Quiros [place] Chart Prep from Last 3 Months Immunizations Name Administration [...] (197 lb) 04/30/2024 10:22 AM EST Height 172.7 cm (5' 8 ) 04/01/2024 10:33 AM EST Body Mass Index 29.95 04/01/2024 10:33 AM EST Plan of Treatment Upcoming Encounters Date Type Department Care Team (Late st Contact Info) Description 05/03/2024 11:30 AM EST Office Visit [facility] [address] [place], [place] [phone] Malcolm Alvarez, GEETA [address] [place], [place] [phone] 05/12/2024 11:15 AM EDT Office Visit [facility] [address] [place], [place] [phone] Mary Moore, SHEN [address] [place], [place] [phone] Health Maintenance Due Date Last Done Comments Hepatitis B Vaccines (1 of 3 - 19+ 3-dose series) 07/02/1999 Pneumococcal Vaccine: Pediatrics (0 to 5 Years) and At-Risk Patients (6 to 49) Years) (1 of 2 - PCV) 07/02/1999 Mammogram 05/16/2021 05/17/2019 Colposcopy 04/02/2024 06/01/2020 SDOH Screening 08/25/2024 08/26/2023 Influenza Vaccine (#1) 2024 Postp oned from 11/02/2023 (Patient Refused) Alcohol/Substance Use Screening 09/02/2024 09/03/2023 Depression Monitoring (PHQ-9) 09/14/2024, 03/17/2024 Depression Screening 03/17/2025 03/17/2024, 03/17/2024 COVID-19 Vaccine ( - 2023-2 5 season) 2025 Postponed from 11/01 (Patient Refused) Family Planning (PISQ) 04/01/2025 04/01/2024 Tobacco Screening 04/01/2025 04/01/2024 Pap Smear 04/01/2027 04/01/2024, 01/04/2021, 01/04/2021 Lipid Panel 07/09/2027 07/08/2022, 12/29/2020 Cervical Cancer Screening 04/01/2029 HPV/Cotest 04/01/2029 04/01/2024, 01/04/2021 Zoster Vaccines (1 of 2) 2030 DTaP/Tdap/Td [...] 04/30/2024 12:33 PM EST Chest wall pain XR RIBS 3 VIEWS LEFT W CHEST Routine 04/30/2024 11:05 AM EST AMB REFERRAL TO OB-FOAM RUBBER MIXER Urgent 04/30/2024 10:42 AM EST Atypical squamous cell changes of undetermined significance (ASCUS) on cervical cytology with positive 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 virus (HPV) PAP SMEAR Routine 04/01/2024 11:10 AM EST LGSIL on Pap smear of cervix HPV DNA, LOW/HIGH RISK Routine 04/01/2024 11:10 AM EST LIPID PANEL, STANDARD Routine 07/08/2022 2:32 PM EDT Encounter for routine history and physical examination of adult ZZZ HISTORICAL HEPATITIS C AB W/REFL TO HCV RNA, QN, PCR Routine 12/29/2020 4:34 PM EDT HIV 1/2 ANTIGEN/ANTIBODY, FOURTH GENERATION W/RFL Routine 12/29/2020 4:34 PM EDT COLPOSCOPY Routine 06/01/2020 12:00 AM EDT BI MAMMOGRAM DIAGNOSTIC BILATERAL Routine 05/17/2019 2:02 PM EDT from Last 3 Months or Most Recently Relevant to Health Maintenance Results * ECG 12 lead (04/30/2024 12:33 PM EST) 04/30/2024 10:4 2 AM EST Narrative Johnson Kaplan MD - 04/30/2024 12:33 PM EST NSR 67, no arrhythmia, no ST-T changes, no Q waes us Johnson Kaplan MD ECG ORDERABLES Edited Result - Final * XR Ribs 3 Views Left w/ Chest (04/30/2024 11:05 AM EST) Anatomical Region Laterality Modality Radiographic Vianey ging 04/30/2024 11:0 5 AM EST Narrative 04/30/2024 12:12 PM EST ?[facility] ?[address] ?[place] [address] ?XRay Report ? Signed ? Patient: Gabi Wilks ?MR#: [id number] ?? [id number] ? : 1980 ?Acct:[id number] ? Age/Sex: 43 / F ?ADM Date: 02/28/25 ? Loc: HO.HHCX ? Attending Dr: Johnson Kaplan MD ? Ordering Physician: Johnson Kaplan MD ?? Date of Service: 04/30/24 ?? Procedure(s): XR ribs LT min 3V w CXR1V ?? Accession Number(s): [id number] ? cc: Johnson Kaplan MD ? EXAMINATION: ?? XR RIBS, LEFT ? CLINICAL INFORMATION: ?? Left-sided anterior rib pain 1 week, no injury. ? COMPARISON: ?? None available. ? TECHNIQUE: ?? 3 views of the left ribs were obtained. ? FINDINGS: ?? Lungs are clear. No consolidation, pneumothorax, or pleural effusion. ?? The cardiomediastinal silhouette and pulmonary vasculature are normal. ? Osseous structures are unremarkable. Ribs are intact. No fractures are ?? identified. ? XR/XR ribs LT min 3V w CXR1V ?? IMPRESSION: ?? Unremarkable examination. ? Electronically signed by: ??Magan Artis MD ??04/30/2024 12:09 PM EST RP ? Dictated By: ?Magan Artis MD ? Signed By: ?<Electronically signed by Magan Artis MD in OV> ?04/30/24 1209 ? DD/ 1105 ? TD/TT: 04/30/24 1204 ? Rehab Tech: ? Procedure Note Morris Jarquin - 04/30/[address] [address] XRay Report Signed Patient: Gabi WilksMR#: [id number] : 1980Acct:[id number] Age/Sex: 43 / FADM Date: 04/30/24 Loc: HO.HHCX Attending Dr: Johnson Kaplan MD Ordering Physician: Johnson Kaplan MD Date of Service: 04/30/24 Procedure(s): XR ribs LT min 3V w CXR1V Accession Number(s): [id number] cc: Johnson Kaplan MD EXAMINATION: XR RIBS, LEFT CLINICAL INFORMATION: Left-sided anterior rib pain 1 week, no injury. COMPARISON: None available. TECHNIQUE: 3 views of the left ribs were obtained. FINDINGS: Lungs are clear. No consolidation, pneumothorax, or pleural effusion. The cardiomediastinal silhouette and pulmonary vasculature are normal. Osseous structures are unremarkable. Ribs are intact. No fractures are identified. XR/XR ribs LT min 3V w CXR1V IMPRESSION: Unremarkable examination. Electronically signed by: Magan Artis MD 04/30/2024 12:09 PM EST Dictated By: Magan Artis MD Signed By: <Electronically signed by Magan Artis MD in OV> 04/30/24 1209 DD/ 1105 TD/TT: 04/30/24 1204 Rehab Tech: Johnson Kaplan MD IMG XR PROCEDURES Final Result * Referral to Obstetrics / Gynecology (04/30/2024 10:42 AM EST) 04/30/2024 10:4 2 AM EST Malcolm VELEZ OUTPATIENT REFERRAL ORDER ANÍBAL Final Result * (ABNORMAL) HPV DNA, Low/High Risk (04/01/2024 11:10 AM EST) HPV High Risk Positive(A) Negative [facility] HPV Genotype 16 Positive(A) Negative [facility] HPV Genotype 18 Negative Negative [facility] Comment:HPV testing performe d at [facility] (CLIA#[id number]), [address] [place] [address].Testing for HPV was performed using the Patrice [...] 0 AM EST 04/05/2024 8:55 AM EST Khadra Machuca MD LAB BLOOD ORDERABLES Final Result [facility] [address] [place] [phone] * Pap Smear (04/01/2024 11:10 AM EST) Swab Cervix uteri structure / Unknown 04/01/2024 11:10 AM EST 04/02/2024 6:30 AM EST [facility] - 04/14/2024 6:07 PM EST ----- ------- Name: Gabi Wilks ? Age/Sex: 43/F ? : 1980 Unit#: [id number] ?? Attend Dr: MALCOLM ALVAREZ CNM ?Re04/01/24 ?Status: DEP REF ? Location: HO.HHCLNP ? Disch: ? ----- ------- SPEC : [id number] ? RECD: 04/02/24-629 ? STATUS: ??SOUT ? REQ NUM: [id number] ? ROBEL: 04/01/24-1110 ? SUBM DR: MALCOLM ALVAREZ CNM ? ENTERED: ??04/05/24 ?SP TYPE: Pap Smr ?OTHR : ? ORDERED: ??Pap Smear, PAP path review [...] ----- ------- Signed (signature on file) Jazmín Sissy 04/14/241806 ? ----- ------- ? END OF REPORT ? us Malcolm Pola [facility] LAB CYTOLOGY ORDERABLES F inal Result [facility] [address] [place] [phone] * (ABNORMAL) Lipid Panel, Standard (07/08/2022 2:32 PM EDT) Pathologist [facility] Cholesterol, Total 249(H) <200 mg/dL [facility] HDL Cholesterol 55 > OR = 50 mg/dL [facility] Triglycerides 154(H) <150 mg/dL [facility] LDL Cholesterol 164(H) mg/dL (calc) [facility] Comment: Reference range: <100 Desirable range <100 mg/dL for primary prevention; ?? <70 mg/dL for patients with CHD or diabetic patients with > or = 2 CHD risk factors. LDL-C is now calculated using the Kosta-Hansa calculation, which is a validated novel method providing better accuracy than the Friedewald equation in the estimation of LDL-C. Kosta CHANG et al. RIP. 2013;310(19): 7300-3653 (http://education.[employer]/faq/EMT353) Chol/HDLC Ratio 4.5 <5.0 (calc) [facility] Non-HDL Cholesterol 194(H) <130 mg/dL (calc) [facility] Comment: For patients with diabetes plus 1 major ASCVD risk factor, treating to a non-HDL-C goal of <100 mg/dL (LDL-C of <70 mg/dL) is considered a therapeutic option. Blood Venous blood specimen / Unknown 07/08/2022 2:32 PM EDT 07/08/2022 2:32 PM EDT Narrative [facility] - 07/09/2022 4:55 AM EDT FASTING:NO FASTING: NO Mary Oscar [facility] LAB BLOOD ORDERABLES Final Res ult Performing Organization Address City/[facility]/ZIP Co de Phone Number [facility] [address], [place] [address] [facility] [address] [place] [address] * HEPATITIS C AB W/REFL TO HCV RNA, QN, PCR (12/29/2020 4:34 PM EDT) Pathologist [facility] HEPATITIS C ANTIBODY NON-REACT JEREMY NON-REACT JEREMY [facility] INDEX 0.02 <1.00 [facility] Comment: ?? HCV antibody was non-reactive. There is no laboratory ?? evidence of HCV infection. ?? In most cases, no further action is required. However, if recent HCV exposure is suspected, a test for HCV RNA (test code 31437) is suggested. ?? For additional information please refer to http://education.[employer]/faq/FZD32m2 (This link is being provided for informational/ educational purposes only.) ?? 12/29/2020 4:34 PM EDT Mary Oscar [facility] HISTORICAL/NON ORDERABLE LABS Final Result Performing Organization Address City/[facility]/ZIP Co de Phone Number [facility] [address] * HIV 1/2 ANTIGEN/ANTIBODY,FOURTH GENERATION W/RFL (12/29/2020 4:34 PM EDT) Pathologist [facility] HIV-1/2 ANTIGEN AND ANTIBODIES, 4TH GENERATION W/ [...] ? For additional information please refer to http://[facility] [employer]/faq/PRH044 (This link is being provided for informational/ educational purposes only.) ? The performance of this assay has not been clinically validated in patients less than 2 years old. ?? 12/29/2020 4:34 PM EDT Mary Moore [facility] LAB BLOOD ORDERABLES Final Res ult Performing Organization Address [facility]/ZIP Co de Phone Number [facility] [address] * Colposcopy (06/01/2020 12:00 AM EDT) Historical Provider IN CLINIC/BEDSIDE ORDERAB LES Final Result Performing Organization Address [facility]/ZIP Co de Phone Number [facility] [address] [place] [address] [phone] * 3D BILATERAL DIAGN MAMMO 1 (05/17/2019 2:02 PM EDT) Anatomical Region Laterality Modality Breast Bilateral Mammography 05/17/2019 2:02 PM EDT Narrative 05/17/2019 2:04 PM EDT Refer to the Notes tab for result details [facility] Procedure: 3D BILATERAL DIAGN MAMMO 1 Procedure Note Provider, Zeeshan, - 05/25/2022 Refer to the Notes tab for result details [facility] Procedure: 3D BILATERAL DIAGN MAMMO 1 Historical Provider IMG BI PROCEDURES Final R esult from Last 3 Months or Most Recently Relevant to Health Maintenance Insurance . #1 [place] [address] [facility] C3 HSN FULL . #1 [place] [address] . [address] [place] [address] . #1 [place] [address] Care Teams Chief Minister Relationship Specialty Start Date End Date Mary Moore FNP [address] [place] [address] PCP - General Family Medicine 12/25/20 Kevin Quintero, JO [address] [place] [address] Door To Door SalespersonPublic Health Doctor 04/05/24
--- OUTSIDE RECORDS SUMMARY | 2024-04-30 12:53 | XMS_ITS | Encounter Summary ---
Author Organization [employer] Address [address] [facility] [place] [address] Care Team Providers Care Wet End Tester Name Role Phone Mary Moore SHEN Primary Care Provider [phone] Encounter Details Date Type Department Care Team [...] Description 05/03/2024 11:30 AM EST Office Visit [address] [address] Cindi Escalona CNM [address] [place] [phone] 05/12/2024 11:15 AM EDT Office Visit [address] [address] Mary Moore FNP [address] [place] [address] documented as of this encounter Visit Diagnoses Not on filedocumented in this encounter Additional Health Concerns Assessment Noted Time PHQ-9 Depression Total Score: 19 025 11:24 AM EST documented as of this encounter Care Teams Wet End Tester Relationship Specialty Start Date End Date Mary Moore FNP [address] [place] [phone] PCP - General Family Medicine 12/25/20 documented as of this encounter
--- OUTSIDE RECORDS SUMMARY | 2024-04-30 12:53 | XMS_ITS | Encounter Summary ---
Author Organization [employer] Address [address] [place] [address] [address] [address] Care Team Providers Care Cafe Server Name Role Phone JessicaMary cat SHEN Primary Care Provider [phone] Kevin Quintero RN Unavailable [phone] Reason for Referral * Consultation (Urgent) - Authorized Specialty Diagnoses / Procedures Referred By Contac t Referred To Contact Obstetrics and Gynecology Diagnoses Atypical squamous cell changes of undetermined significance (ASCUS) on cervical cytology with positive 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 virus (HPV) Cindi Escalona CNM [address] [place] [address] Phone: tel: fax: Usman Choi MD [address] [place] [address] [place] [address] Phone: tel: fax: Referral ID Status Reason Start Date Expiration Date Visits Requested Visits Authorized [id number] Authorized Specialty Services Required 04/15/2024 04/15/2025 1 1 Encounter Details Date Type Department Care Team (Late st Contact Info) Description 04/15/2024 Orders Only [facility] [address] [place] [address] Cindi Escalona CNM [address] [place], [place] Atypical squamous cell changes of undetermined significance (ASCUS) on cervical cytology with positive 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 virus (HPV) (Primary Dx) Social History Tobacco Use Types Packs/Day Years [...] Description 05/03/2024 11:30 AM EST Office Visit [facility] [address] [place] [address] Cindi Escalona CNM [address] [place] [address] 05/12/2024 11:15 AM EDT Office Visit [facility] [address] [place] [address] Mary Moore FNP [address] [place] [address] documented as of this encounter Procedures Procedure Name Priority Date/Time Associated Diagnosis Comments AMB REFERRAL TO OB-CYBER SECURITY SPECIALIST Urgent 10:42 AM EST Atypical squamous cell changes of undetermined significance (ASCUS) on cervical cytology with positive 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 virus (HPV) documented in this encounter Results * Referral to Obstetrics / Gynecology (04/30/2024 10:42 AM EST) 04/30/2024 10:4 2 AM EST Cindi Escalona CNM OUTPATIENT REFERRAL ORDER ANÍBAL Final Result documented in this encounter Visit Diagnoses Diagnosis Atypical squamous cell changes of undetermined significance (ASCUS) on cervical cytology with positive 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 virus (HPV)- Primary documented in this encounter Additional Health Concerns Assessment Noted Time PHQ-9 Depression Total Score: 19 025 11:24 AM EST documented as of this encounter Care Teams Cafe Server Relationship Specialty Start Date End Date Mary Moore FNP [address] [place] [address] PCP - General Family Medicine 12/25/20 Kevin Quintero, JO [address] [place] [address] Room WorkerInside Sales Account Executive 04/05/24 documented as of this encounter
--- OUTSIDE RECORDS SUMMARY | 2024-04-30 12:53 | XMS_ITS | Encounter Summary ---
Author Organization [employer] Address [address] 7t [place] [address] Care Team Providers Care Yard Goods Salesperson Name Role Phone Mary Moore SHEN Primary Care Provider [phone] Kevin Quintero RN Unavailable [phone] Encounter Details Date Type Department Care Team (Late st Contact Info) Description 04/30/2024 Orders Only [facility] [address] [place] [address] Johnson Kaplan MD 230 [place] [address] Social History Tobacco Use Types Packs/Day Years [...] 11:30 AM EST Office Visit [facility] [address] [place] [address] Cindi Escalona, CNM [address] [place] [address] 05/12/2024 11:15 AM EDT Office Visit [address] [address] Mary Moore, ALARM OPERATOR [address] [place] [address] documented as of this encounter Procedures Procedure Name Priority Date/Time Associated Diagnosis Comments XR RIBS 3 VIEWS LEFT W CHEST Routine 04/30/2024 11:05 AM EST documented in this encounter Results * XR Ribs 3 Views Left w/ Chest (04/30/2024 11:05 AM EST) Anatomical Region Laterality Modality Radiographic Vianey ging 04/30/2024 11:0 5 AM EST Narrative 04/30/2024 12:12 PM EST ?[facility] ?[address] ?[place] [address] ?XRay Report ? Signed ? Patient: Wilks,Gabi ?MR#: [id number] ?? [id number] ? : 1980 ?Acct:[id number] ? Age/Sex: 43 / F ?ADM Date: 04/30/24 ? Loc: HO.HHCX ? Attending Dr: Johnson Kaplan MD ? Ordering Physician: Johnson Kaplan MD ?? Date of Service: 04/30/24 ?? Procedure(s): XR ribs LT min 3V w CXR1V ?? Accession Number(s): [id number] ? cc: Johnson Kaplan MD ? EXAMINATION: [...] DD/ 1105 ? TD/TT: 04/30/24 1204 ? Marine Drafter: ? Procedure Note Milka, Image - 04/30/2024 [facility] [address] [place] [address] XRay Report Signed Patient: Gabi Wilks#: [id number] : 1980Acct:[id number] Age/Sex: 43 / FADM Date: 04/30/24 Loc: HO.HHCX Attending Dr: Johnson Kaplan MD Ordering Physician: Johnson Kaplan MD Date of Service: 04/30/24 Procedure(s): XR ribs LT min 3V w CXR1V Accession Number(s): [id number] cc: Johnson Kaplan MD EXAMINATION: XR RIBS, [...] 04/30/24 1209 DD/ 1105 TD/TT: 04/30/24 1204 Marine Drafter: Johnson Kaplan MD IMG XR PROCEDURES Final Result documented in this encounter Visit Diagnoses Not on filedocumented in this encounter Additional Health Concerns Assessment Noted Time PHQ-9 Depression Total Score: 19 025 11:24 AM EST documented as of this encounter Care Teams Yard Goods Salesperson Relationship Specialty Start Date End Date Mary Moore FNP [address] [place] [address] PCP - General Family Medicine 12/25/20 Kevin Quintero RN 505 [place] [address] Judo InstructorSteward/Stewardess Second 04/05/24 documented as of this encounter
--- OUTSIDE RECORDS SUMMARY | 2024-04-30 12:53 | XMS_ITS | Encounter Summary ---
Author Organization [employer] Address [address] [facility] 7t [place] [address] Care Team Providers Care Diesel Roller Operator Name Role Phone Mary Moore Primary Care Provider [phone] Kevin Quintero RN Unavailable [phone] Reason for Visit * Reason Comments Care Coordination SDOH f/u Encounter Details Date Type Department Care Team (Latest Contact Info) Description 04/26/2024 Patient Outreach [facility] 505 [place] [address] Mary Moore FNP [address] [place], [place] [phone] Care Coordination (SDOH f/u) Social History Tobacco [...] encounter Progress Notes * Sheree Noe - 04/26/2024 12:35 PM EST CHW Sheree Noe/CM Kevin Quintero RN placed outbound call to patient to follow up on SDOH needs.Patient's name, and address confirmed. Patient states is doing okay. Patient stated she struggles with some food and housing insecurity, patient is currently living with mom and stated mom is having trouble affording the rent and will possibly turn in apartment, patient stated she will probablyhave no place to go if that happens. Patient only receives income from [employer] not enough for apartmenton her own. CHW will send patient resources for low-income housing and will send also an updated food pantry list. Patient also would like help setting up PT1 for upcoming appts. CHW will submit and help schedule PT1's for patient. No further questions or concerns. CHW reinforced direct contact information or SIMON for any additional questions or concerns and extended clinic hours on Mondays and Wednesdays, and Walk-In Urgent Care Located in Lobby of [facility]. Patient provided with after-hours line for [facility], , which offer nighttime triage service and option to transfer to system administration advisor provider [facility]. Patient verbalizes understanding, and able to repeat back to loan underwriter. A follow up call will be placed within 10 days, patient agrees with plan. documented in this encounter Plan of Treatment Upcoming Encounters Date Type Department Care Team (Late st Contact Info) Description 05/03/2024 11:30 AM EST Office Visit [facility] MED[facility] [address] [place] [address] Cindi Escalona CNM 230 [place] [address] 05/12/2024 11:15 AM EDT Office Visit [facility] [address] [place] [address] Mary Moore FNP 505 [place], [place] [phone] documented as of this encounter Visit Diagnoses Not on filedocumented in this encounter Additional Health Concerns Assessment Noted Time PHQ-9 Depression Total Score: 19 025 11:24 AM EST documented as of this encounter Care Teams Diesel Roller Operator Relationship Specialty Start Date End Date Mary Moore FNP [address] [place] [address] PCP - General Family Medicine 12/25/20 Kevin Quintero RN 505 [place] [address] Spiral BinderBusiness Process Architect 04/05/24 documented as of this encounter"
== END 2024-04-30 11:04 | disposition home or self-care (01) ==
LOC: HO.HHCX 11:03
PROVIDERS: Visit Provider Family Medicine
DX: R07.89 Other chest pain (principal)
CPT/HCPCS: 71101

== ENCOUNTER → 2024-04-30 11:05 | Outpatient (BNV) | payer MEDICAID, SELFPAY | PROVIDERS: Visit Provider Radiology Diagnostic Radiology | DX: R07.89 Other chest pain (principal) | CPT/HCPCS: 71101 ==

== ENCOUNTER 2024-04-30 11:26 | Outpatient (REF) | payer MEDICAID, SELFPAY ==
--- OUTSIDE RECORDS SUMMARY | 2024-04-30 13:41 | XMS_ITS | Encounter Summary ---
Author Organization [employer] Address [address] [facility] 7t [place] [address] Care Team Providers Care Slubber Machine Operator Name Role Phone Mary Moore Primary Care Provider [phone] Kevin Quintero RN Unavailable [phone] Reason for Visit * Reason Onset Date Comments Care Management 04/26/2024 C3CM- f/u call Encounter Details Date Type Department Care Team ([facility] st Contact Info) Description 04/26/2024 Telephone [facility] MED[facility] [address] [place] [address] Mary Moore FNP [address] [place], [place] [phone] Care Management (C3CM- f/u call) Social History [...] that she had scheduled for today at [facility]. CM advised she contact [facility] centralized schedulingto reschedule these visits. CM provided [...] provided on Walk-In Urgent Care located in [facility] of [facility]. Patient provided with after-hours line for [facility], , which offer night time triage service and option to transfer to inventory control associate provider if needed. Patient verbalizes understanding, and able to repeat back to life insurance underwriter. A follow up call will be placed within 10 days, patientagrees with plan. documented in this encounter Plan of Treatment Upcoming Encounters Date Type Department Care Team ([facility] st Contact Info) Description 05/03/2024 11:30 AM EST Office Visit [facility] [address] [place] [address] Cindi Escalona CNM [address] [place] [address] 05/12/2024 11:15 AM EDT Office Visit [facility] [address] [place] [address] Mary Moore FNP 505 [place] [address] documented as of this encounter Visit Diagnoses Not on filedocumented in this encounter Additional Health Concerns Assessment Noted Time PHQ-9 Depression Total Score: 19 025 11:24 AM EST documented as of this encounter Care Teams Slubber Machine Operator Relationship Specialty Start Date End Date Mary Moore FNP 230 [place] [address] PCP - General Family Medicine 12/25/20 Kevin Quintero, JO 505 [place] [address] Clinical RadiologistCustomer Development Representative 04/05/24 documented as of this encounter
--- OUTSIDE RECORDS SUMMARY | 2024-04-30 13:41 | XMS_ITS | Encounter Summary ---
Author Organization [employer] Address [address] [facility] 7t [place] [address] Care Team Providers Care Time Clock Repairer Name Role Phone Mary Moore Primary Care Provider [phone] Kevin Quintero RN Unavailable [phone] Reason for Visit * Reason Onset Date Comments Med Refill 04/26/2024 Encounter Details Date Type Department Care Team (Late st Contact Info) Description 04/26/2024 Refill [facility] MEDICINE [address] [place] [address] Mary Moore FNP [address] [place], [place] [phone] Low back pain at multiple sites; Discogenic [...] Description 05/03/2024 11:30 AM EST Office Visit [facility]INE [address] [place] [address] Cindi Escalona CNM [address] [place] [address] 05/12/2024 11:15 AM EDT Office Visit [facility] [address] [place] [address] Mary Moore FNP 505 [place] [address] documented as of this encounter Visit Diagnoses Diagnosis Low back pain at multiple sites Discogenic lumbar pain documented in this encounter Additional Health Concerns Assessment Noted Time PHQ-9 Depression Total Score: 19 025 11:24 AM EST documented as of this encounter Care Teams Time Clock Repairer Relationship Specialty Start Date End Date Mary Moore FNP [address] [place] [address] PCP - General Family Medicine 12/25/20 Kevin Quintero RN [address] [place] [address] Device Test EngineerBag Machine Adjuster 04/05/24 documented as of this encounter
--- OUTSIDE RECORDS SUMMARY | 2024-04-30 13:41 | XMS_ITS | Encounter Summary ---
Author Organization [employer] Address [address] [place] [address] 7t [place] [address] Care Team Providers Care Partition Notcher Name Role Phone Mary Moore Primary Care Provider [phone] Kevin Quintero RN Unavailable [phone] Reason for Visit * Reason Onset Date Comments Triage 05/01/2022 Encounter Details Date Type Department Care Team (Late st Contact Info) Description 05/01/2022 Telephone [facility] MEDICINE [address] [place] [address] Mary Moore FNP [address] [place], [place] [phone] Triage Social History Tobacco Use Types Packs/Day [...] accepted this outcome Please contact pt at [phone] documented in this encounter Plan of Treatment Upcoming Encounters Date Type Department Care Team (Late st Contact Info) Description 05/03/2024 11:30 AM EST Office Visit [address] [address] Cindi Escalona CNM 230 [place] [address] 05/12/2024 11:15 AM EDT Office Visit [address] [address] Mary Moore FNP 505 [place] [address] documented as of this encounter Visit Diagnoses Not on filedocumented in this encounter Care Teams Partition Notcher Relationship Specialty Start Date End Date Mary Moore FNP 230 [place] [address] PCP - General Family Medicine 12/25/20 Kevin Quintero RN [address] [place] [address] Care AssociateHealth Communications Specialist 04/05/24 documented as of this encounter
--- OUTSIDE RECORDS SUMMARY | 2024-04-30 13:41 | XMS_ITS | Encounter Summary ---
Author Organization [employer] Address [address] [facility] 7t [place] [address] Care Team Providers Care Bakery Clerk Name Role Phone Mary Moore Primary Care Provider [phone] Kevin Quintero RN Unavailable [phone] Reason for Visit * Reason Comments Care Coordination SDOH f/u Encounter Details Date Type Department Care Team (Latest Contact Info) Description 04/26/2024 Patient Outreach [facility] 505 [place] [address] Mary Moore FNP [address] [place], [place] [phone] Care Coordination (SDOH f/u) Social History Tobacco [...] that happens. Patient only receives income from [employer] not enough for apartmenton her own. CHW [...] Walk-In Urgent Care Located in Lobby of [facility]. Patient provided with after-hours line for [facility], , which offer nighttime triage service and option to transfer to information and data architect analyst provider [facility]. Patient verbalizes understanding, and able to repeat back to play writer. A follow up call will be placed within 10 days, patient agrees with plan. documented in this encounter Plan of Treatment Upcoming Encounters Date Type Department Care Team (Late st Contact Info) Description 05/03/2024 11:30 AM EST Office Visit [facility] [address] [place] [address] Cindi Escalona CNM [address] [place] [address] 05/12/2024 11:15 AM EDT Office Visit [facility] 230 [place] [address] Mary Moore FNP [address] [place], [place] [phone] documented as of this encounter Visit Diagnoses Not on filedocumented in this encounter Additional Health Concerns Assessment Noted Time PHQ-9 Depression Total Score: 19 025 11:24 AM EST documented as of this encounter Care Teams Bakery Clerk Relationship Specialty Start Date End Date Mary oMore FNP 230 [place] [address] PCP - General Family Medicine 12/25/20 Kevin Quintero RN 505 [place] [address] Clinical Research AssistantChemical Analyst 04/05/24 documented as of this encounter
--- OUTSIDE RECORDS SUMMARY | 2024-04-30 13:41 | XMS_ITS | Encounter Summary ---
Author Organization [employer] Address [address] 7t [place] [address] Care Team Providers Care Thermodynamic Physicist Name Role Phone JessicaMary cat SHEN Primary Care Provider [phone] Kevin Quintero RN Unavailable [phone] Reason for Visit * Reason Comments LUQ pain Pt presents with mul tiple s/s: LUQ pain, back pain, anxiety, cough, etc Encounter Details Date Type Department Care Team (Latest Contact Info) Description 04/30/2024 10:00 AM EST Office Visit [facility] [address] [place] [phone] Johnson Kaplan MD [address] [place] [phone] Anxiety (Primary Dx); Chest wall pain; Moderate persistent asthma, uncomplicated [...] the past 12 months, has t he [employer], gas, oil or water company threatened to [...] documented in this encounter Progress Notes * Johnson Kaplan MD - 04/30/2024 10:00 AM EST Subjective History was provided by the patient. Gabi Wilks is a 43 y.o. female who presents for evaluation of left-sided chest wall pain and increased anxiety. Also having some difficulty with using Albuterol inhaler and smoking cessation. Increased stress at home due to disagreements with family members. Documented to have moderate persistent asthma, but reports she has not been using Flovent Rx. Pain in the left lower chest wall area, reproducible by touch, movements, cough, and deep inspiration. Denies F/C/N/V/D. Denies congestion or rhinorrhea. Currently smokes marijuana nightly and 1/2 PPD cigarettes. States it has been helpful with her anxiety. Trying to cut down. Declines any nicotine substitute Rx at this time. Has been referred to . Has an upcoming appointment with psychiatric prescriber on 05/17/2024. Feels safe to self and others. major account manager appreciated rhonchi and wheezing. Albuterol via nebulizer was initiated. Lungs sound within normal at the time of this provider's examination. Denies any sexual partner >2 years. Objective Vitals: 04/30/24 1022 BP: 122/81 BP Location: Left arm Patient Position: Lying BP Cuff Size: Adult Pulse: 67 Resp: 20 Temp: 98.9 ??F (37.2 ??C) TempSrc: Oral SpO2: 99% Weight: 197 lb (89.4 kg) Physical Exam Vitals reviewed. Constitutional: Appearance: Normal appearance. She is normal weight. HENT: Head: Normocephalic and atraumatic. Right Ear: External ear normal. Left Ear: External ear normal. Nose: Nose normal. Mouth/Throat: Mouth: Mucous membranes are moist. Pharynx: Oropharynx is clear. Eyes: Extraocular Movements: Extraocular movements intact. Conjunctiva/sclera: Conjunctivae normal. Pupils: Pupils are equal, round, and reactive to light. Cardiovascular: Rate and Rhythm: Normal rate and regular rhythm. Heart sounds: Normal heart sounds. Pulmonary: Effort: Pulmonary effort is normal. No respiratory distress. Breath sounds: Normal breath sounds. No wheezing, rhonchi or rales. Musculoskeletal: General: Normal range of motion. Cervical back: Normal range of motion and neck supple. Comments: Tenderness at the left anterior lower costal cartilage area; no skin change; no erythema or induration; no deformity Skin: General: Skin is warm and dry. Neurological: General: No focal deficit present. Mental Status: She is alert and oriented to person, place, and time. Mental status is at baseline. Psychiatric: Mood and Affect: Mood normal. Behavior: Behavior normal. Thought Content: Thought content normal. Judgment: Judgment normal. Gabi was seen today for luq pain. Diagnoses and all orders for this visit: Chest wall pain - ECG 12 lead - albuterol (2.5 MG/3ML) 0.083% nebulizer solution 2.5 mg - XR Ribs 2 Views Left with Chest Anteroposterior; Future Moderate persistent asthma, uncomplicated - albuterol (ProAir HFA) 108 (90 Base) MCG/ACT inhaler; Inhale 2 puffs every 4 (four) hours if needed for wheezing or shortness of breath. - fluticasone (Flovent HFA) 220 MCG/ACT inhaler; Inhale 1 puff every 12 (twelve) hours. - Spacer/Aero-Holding Chambers (AeroChamber MV) inhaler; Use as instructed Patient presents to [facility] due to increased anxiety related to stress and left- sided anterior chest wall pain Suspect musculoskeletal etiology Normal pulmonary exam without wheezing or rhonchi (but examined after the Albuterol nebulizer treatment) O2 sat within normal at RA Encouraged to re-start Flovent HFA Albuterol Rx refilled (advised to keep it with her; her mother is using patient's inhaler for theircat who also has asthma) Aerochamber spacer use recommended Potential adverse effects of the medications reviewed EKG unremarkable today X-ray ribs today show clear lung field without consolidation or pleural effusion; ribs intact without fracture Has an upcoming Psychiatry appointment Safe to self and others Encouraged behavioral modification and stress management strategies discussed Smoking cessation also discussed Indications for UC/ER use reviewed Advised to contact the clinic if persistent or worsening symptoms documented in this encounter Plan of Treatment Upcoming Encounters Date Type Department Care Team (Late st Contact Info) Description 05/03/2024 11:30 AM EST Office Visit [facility] 230 [place] [address] Cindi Escalona CNM [address] [place] [address] 05/12/2024 11:15 AM EDT Office Visit [facility] [address] [place] [address] Mary Moore FNP 505 [place] [address] Scheduled Orders Name Type Priority Associated Diagnoses [...] arrhythmia, no ST-T changes, no Q waes Johnson Kaplan MD ECG ORDERABLES Edited Result - Final documented in this encounter Visit Diagnoses Diagnosis Anxiety- Primary Anxiety state, unspecified Chest wall pain Painful respiration Moderate persistent [...] documented as of this encounter Care Teams Thermodynamic Physicist Relationship Specialty Start Date End Date Mary Moore FNP [address] [place] [address] PCP - General Family Medicine 12/25/20 Kevin Quintero, JO 505 [place] [address] Aquatics Assistant Department HeadFloor Specialist 04/05/24 documented as of this encounter
--- OUTSIDE RECORDS SUMMARY | 2024-04-30 13:41 | XMS_ITS | Encounter Summary ---
Author Organization [employer] Address [address] [facility] 7t [place] [address] Care Team Providers Care Boat Hop Name Role Phone Mary Moore SHEN Primary Care Provider [phone] Kevin Quintero RN Unavailable [phone] Reason for Visit * Reason Onset Date Comments Care Management 04/05/2024 C3CM- initial as sessment/ enrollment Encounter Details Date Type Department Care Team (Late st Contact Info) Description 04/05/2024 Telephone [facility] MEDICINE [address] [place] [address] Kevin Quintero, RN [address] [place], [place] [phone] Care Management (C3- initial assessment/ enrollment) Social [...] depressive disorder. Patient reports being [facility] by [facility]. Patient states she is [...] she is scheduled for a mammogram at [facility] on 04/26/24. CHW will assist with PT1. Patient denies any further needs or concerns at this time. Care management program explained and contact information given. Patient verbalizes understanding, and able to repeat back to automobile service writer. A follow up call will be placed within 10 days, patient agrees with plan. documented in this encounter Plan of Treatment Upcoming Encounters Date Type Department Care Team (Late st Contact Info) Description 05/03/2024 11:30 AM EST Office Visit [facility] MED[facility]INE [address] [place] [address] Cindi Escalona CNM [address] [place] [address] 05/12/2024 11:15 AM EDT Office Visit [facility] [address] [place] [address] Mary Moore FNP 505 [place] [address] documented as of this encounter Visit Diagnoses Not on filedocumented in this encounter Additional Health Concerns Assessment Noted Time PHQ-9 Depression Total Score: 19 025 11:24 AM EST documented as of this encounter Care Teams Boat Hop Relationship Specialty Start Date End Date Mary Moore FNP [address] [place] [address] PCP - General Family Medicine 12/25/20 Kevin Quintero RN 505 [place] [address] Classifying Machine OperatorCyber Security Systems Engineer 04/05/24 documented as of this encounter
--- OUTSIDE RECORDS SUMMARY | 2024-04-30 13:41 | XMS_ITS | Encounter Summary ---
Author Organization [employer] Address [address] [facility] [address]t [place] [address] Care Team Providers Care Filler Sifter Helper Name Role Phone Mary Moore SHEN Primary Care Provider [phone] Kevin Quintero RN Unavailable [phone] Encounter Details Date Type Department Care [...] Description 05/03/2024 11:30 AM EST Office Visit [facility] [address] [place] [address] Cindi Escalona CNM 230 [place] [address] 05/12/2024 11:15 AM EDT Office Visit [address] [address] Mary Moore FNP 505 [place] [address] documented as of this encounter Visit Diagnoses Not on filedocumented in this encounter Additional Health Concerns Assessment Noted Time PHQ-9 Depression Total Score: 19 025 11:24 AM EST documented as of this encounter Care Teams Filler Sifter Helper Relationship Specialty Start Date End Date Mary Moore FNP 230 [place] [address] PCP - General Family Medicine 12/25/20 Kevin Quintero, JO [address] [place] [address] Equipment InstallerSlot Floorperson 04/05/24 documented as of this encounter
--- OUTSIDE RECORDS SUMMARY | 2024-04-30 13:41 | XMS_ITS | Encounter Summary ---
Author Organization [employer] Address [address] 7t [place] [address] Care Team Providers Care Ladle Cleaner Name Role Phone Mary Moore SHEN Primary Care Provider [phone] Kevin Quintero RN Unavailable [phone] Reason for Visit * Reason Onset Date Comments [facility] triage 04/30/2024 Encounter Details Date Type Department Care Team (Late st Contact Info) Description 04/30/2024 Telephone [facility] [address] [place] [address] Shayy Wise RN [facility] triage Social History Tobacco Use Types Packs/Day [...] 04/30/2024 10:25 AM EST Pt presents to [facility] reporting to FD: chest pain and right arm tingling Pt taken for immediate triage y this proposal writer 1000: Pt is upset about her son [...] all this anxiety and fighting . EKG: P/CO: 108/114 ms QRS: 82 ms QT/Qtc: 418/441 ms P/QRS/T axis: -63261/37 eg HR: 67 bpm Sinus rhythm 1020 [...] everything for them: She moved up from [facility] 8 years ago. She states I keep to myself , she does not have any social supports available. She does endorse seeking out supports. Pt is in NAD, nebulizer in process Awaits provider eval documented in this encounter Plan of Treatment Upcoming Encounters Date Type Department Care Team (Late st Contact Info) Description 05/03/2024 11:30 AM EST Office Visit [facility] [address] [place] [address] Cindi Escalona CNM [address] [place] [address] 05/12/2024 11:15 AM EDT Office Visit [address] [address] Mary Moore FNP [address] [place] [address] documented as of this encounter Visit Diagnoses Not on filedocumented in this encounter Additional Health Concerns Assessment Noted Time PHQ-9 Depression Total Score: 19 025 11:24 AM EST documented as of this encounter Care Teams Ladle Cleaner Relationship Specialty Start Date End Date Mary Moore FNP [address] [place] [address] PCP - General Family Medicine 12/25/20 Kevin Quintero, JO [address] [place] [address] Skiver OperatorCustomer Account Administrator 04/05/24 documented as of this encounter
--- OUTSIDE RECORDS SUMMARY | 2024-04-30 13:41 | XMS_ITS | Encounter Summary ---
Author Organization [employer] Address [address] [facility] 7t [place] [address] Care Team Providers Care Fisher Crab Name Role Phone Mary Moore Primary Care Provider [phone] Kevin Quintero RN Unavailable [phone] Reason for Visit * Reason Comments Care Coordination PT1 Encounter Details Date Type Department Care Team (Latest Contact Info) Description 04/28/2024 Patient Outreach [facility] [address] [place], [place] [phone] Mary Moore FNP [address] [place], [place] [phone] Care Coordination (PT1) Social History Tobacco Use [...] 11:15am with ARTEMIO Moore both at [facility]. M with details. CHW will follow up with patient before appts. documented in this encounter Plan of Treatment Upcoming Encounters Date Type Department Care Team (Late st Contact Info) Description 05/03/2024 11:30 AM EST Office Visit [facility] [address] [place] [address] Cindi Escalona CNM [address] [place] [address] 05/12/2024 11:15 AM EDT Office Visit [facility] [address] [place] [address] Mary Moore FNP 505 [place] [address] documented as of this encounter Visit Diagnoses Not on filedocumented in this encounter Additional Health Concerns Assessment Noted Time PHQ-9 Depression Total Score: 19 025 11:24 AM EST documented as of this encounter Care Teams Fisher Crab Relationship Specialty Start Date End Date Mary Moore FNP [address] [place] [address] PCP - General Family Medicine 12/25/20 Kevin Quintero, JO [address] [place] [address] Bladder BlowerLegal Stenographer 04/05/24 documented as of this encounter
--- OUTSIDE RECORDS SUMMARY | 2024-04-30 13:41 | XMS_ITS | Clinical Summary ---
Author Organization [employer] Address 75 [facility] 7t [place] [address] Care Team Providers Care Alumina Refinery Operator Name Role Phone JessicaMary cat SHEN Primary Care Provider [phone] Kevin Quintero RN Unavailable [phone] Allergies No known active allergies Medications [...] 09/03/2023 Overview (03/18/2024): OPH: CEE 10/21/22 at [facility]. Due Oct 2024 Last PE: 09/03/23 Tdap: last 09/03/23 Routine Cancer Screening Breast CA: Last available May 2019: BIRADS 3. Order placed 03/17/2024 Cervical CA: ASCUS HPV pos, neg 16/18 in 02/2020, followed by negative colposcopy 06/2020. Jan 2021 LSIL HPV pos. Due for repeat Jan 2022. Scheduled 04/01/2024 at [facility] Colon CA: routine screening 45-75 years old [...] of self harm Referred for OP therapy ([facility]). Plan for initial appt within [...] out help PLAN: 1. Follow up with [facility]: Not recommended for follow-up 2. Patient goal [...] if interested in smoking cessation resources through [facility] Discogenic lumbar pain 01/18/2021 Overview (03/18/2024): Specialists: previously referred to physiatry. They had recommended PT and to return if worsening for consideration of injection Continue with symptomatic relief measures such as warm bath/shower, APAP & ibuprofen PRN, stretching Referral to physical therapy placed 09/03/23, re-sent on 03/18/2024 Assessment & Plan (03/18/2024 9:49 AM EST): Referral to physical therapy, also scheduled for [facility] chronic pain group clinic Assessment & Plan (07/11/2022 4:32 PM EDT): Follow up as needed Generalized anxiety disorder 01/06/2021 Assessment & Plan (03/18/2024 9:52 AM EST): BE completed today, see documentation for further details BH: Weekly therapy sessions through [facility] Pharmacotherapy: Discussed risks/benefits, she will consider Primary goal: Housing. Referred to care management team for further assistance and support. Thyroid nodule 01/06/2021 Encounters * This document contains information received from the source organization and may not represent a complete record from that organization. Date Type Department Care Team Description 04/30/2024 10:00 AM EST Office Visit [facility] [address] [place] [address] Johnson Kaplan MD Anxiety (Primary Dx); Chest wall pain; Moderate persistent asthma, uncomplicated 04/30/2024 Orders Only [facility] [address] [place] [address] Johnson Kaplan MD 04/30/[address] [address] Mary Moore FNP Prior Authorization 04/30/2024 Telephone [facility] [address] [place] [address] Shayy Wise, RN ORC triage 04/30/2024 Travel 04/28/2024 Patient Outreach [facility] [address] [place] [address] Mary Moore FNP Care Coordination (PT1) 04/26/[address] [address] Mary Moore FNP Care Management (C3CM- f/u call) 04/26/2024 Patient Outreach [facility] [address] [place] [address] Mary Moore BUS STARTER Care Coordination (SDOH f/u) 04/26/[address] [address] Mary Moore FNP Low back pain at multiple sites; Discogenic lumbar pain 04/15/2024 Orders Only [address] [address] Malcolm Alvarez CNM Atypical squamous cell changes of undetermined significance (ASCUS) on cervical cytology with positive 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 virus (HPV) (Primary Dx) 04/12/2024 Patient Outreach [facility] [address] [place] [address] Mary Moore BUS STARTER Care Coordination (SDOH f/u) 04/12/[address] [address] Kevin Quintero, RN Care Management (C3CM- f/u call lvm) 04/05/[address] [address] Kevin Quintero, RN Care Management (C3CM- initial assessment/ enrollment) 04/02/[address] [address] Rachel Luther [place] [facility] 04/01/2024 10:30 AM EST Procedure Visit [address] [address] Malcolm Alvarez CNM LGSIL on Pap smear of cervix (Primary Dx); Menorrhagia with regular cycle; Dyslipidemia 04/01/2024 Orders Only [address] [address] Khadra Machuca MD 04/01/2024 Travel 03/25/2024 Travel 03/24/2024 Travel 03/24/2024 Patient Outreach [facility] [address] [place] [address] Mary Moore FNP Care Coordination (CM/CHW appt) 03/23/2024 Patient Outreach [facility] [address] [place] [address] Mary Moore FNP Care Coordination (CM/CHW appt reminder) 03/19/2024 Patient Outreach [facility] [address] [place] [address] Mary Moore FNP Care Coordination (CM/CHW outreach) 03/19/[address] [address] Kevin Quintero, JO Care Management (C3CM- chart review) 03/17/2024 11:15 AM EST Office Visit [address] [address] Mary Moore FNP Generalized anxiety disorder (Primary Dx); Healthcare maintenance; Encounter for screening mammogram for malignant neoplasm of breast; Discogenic lumbar pain; Sleep difficulties 03/17/2024 Travel 03/17/[address] [address] Nishant Quiros [place] Chart Prep from Last [...] Description 05/03/2024 11:30 AM EST Office Visit [facility] [address] [place], [place] [phone] Malcolm Alvarez, GEETA [address] [place] [address] 05/12/2024 11:15 AM EDT Office Visit [facility] [address] [place], [place] [phone] Mary Moore, SHEN [address] [place] [address] Health Maintenance Due Date Last Done Comments [...] 04/30/2024 11:05 AM EST AMB REFERRAL TO OB-PACKING SHED SUPERVISOR Urgent 04/30/2024 10:42 AM EST Atypical squamous [...] AM EST Narrative 04/30/2024 12:12 PM EST ?[facility] ?[address] ?[place] [address] ?XRay Report ? Signed ? Patient: Gabi Wilks ?MR#: [id number] ?? [id number] ? : 1980 ?Acct:[id number] ? Age/Sex: 43 / F ?ADM Date: 02/28/25 ? Loc: HO.HHCX ? Attending Dr: Johnson Kaplan MD ? Ordering Physician: Johnson Kaplan MD ?? Date of Service: 04/30/24 ?? Procedure(s): XR ribs LT min 3V w CXR1V ?? Accession Number(s): [id number] ? cc: Johnson Kaplan MD ? EXAMINATION: [...] DD/ 1105 ? TD/TT: 04/30/24 1204 ? Single Needle Operator: ? Procedure Note Donanitainterpreter, Image - 04/30/[address] [address] XRay Report Signed Patient: Gabi WliksMR#: [id number] : 1980Acct:[id number] Age/Sex: 43 / FADM Date: 04/30/24 Loc: .HHX Attending Dr: Johnson Kaplan MD Ordering Physician: Johnson Kaplan MD Date of Service: 04/30/24 Procedure(s): XR ribs LT min 3V w CXR1V Accession Number(s): [id number] cc: Johnson Kaplan MD EXAMINATION: XR RIBS, [...] 04/30/24 1209 DD/ 1105 TD/TT: 04/30/24 1204 Single Needle Operator: Johnson Kaplan MD IMG XR PROCEDURES Final Result * Referral to Obstetrics / Gynecology (04/30/2024 10:42 AM EST) 04/30/2024 10:4 2 AM EST Malcolm Alvarez [facility] OUTPATIENT REFERRAL ORDER ANÍBAL Final Result * (ABNORMAL) HPV DNA, Low/High Risk (04/01/2024 11:10 AM EST) HPV High Risk Positive(A) Negative [facility] HPV Genotype 16 Positive(A) Negative [facility] HPV Genotype 18 Negative Negative [facility] Comment:HPV testing performe d at [facility] (IA#[id number]), [address] [place] [address].Testing for HPV was performed using the Patrice [...] Machuca MD LAB BLOOD ORDERABLES Final Result [facility] [address] [place] [phone] * Pap Smear (04/01/2024 11:10 AM EST) Swab Cervix uteri structure / Unknown 04/01/2024 11:10 AM EST 04/02/2024 6:30 AM EST Narrative [facility] - 04/14/2024 6:07 PM EST ----- ------- Name: Gabi Wilks ? Age/Sex: 43/F ? : 1980 Unit#: [id number] ?? Attend Dr: MALCOLM ALVAREZ CNM ?Re04/01/24 ?Status: DEP REF ? Location: HO.HHCLNP ? Disch: ? ----- ------- SPEC : [id number] ? RECD: 04/02/24-629 ? STATUS: ??SOUT ? REQ NUM: [id number] ? ROBEL: 04/01/24-1110 ? SUBM DR: MALCOLM ALVAREZ CNM ? ENTERED: ??04/05/24-921 ?SP TYPE: Pap Smr [...] END OF REPORT ? us Malcolm Pola [facility] LAB CYTOLOGY ORDERABLES F inal Result [facility] [address] [place] [phone] * (ABNORMAL) Lipid Panel, Standard (07/08/2022 2:32 PM EDT) [facility] Cholesterol, Total 249(H) <200 mg/dL [facility] HDL Cholesterol 55 > OR = 50 mg/dL [facility] Triglycerides 154(H) <150 mg/dL [facility] LDL Cholesterol 164(H) mg/dL (calc) [facility] Comment: Reference range: <100 Desirable range <100 mg/dL for primary prevention; ?? <70 mg/dL for patients with CHD or diabetic patients with > or = 2 CHD risk factors. LDL-C is now calculated using the Navneet calculation, which is a validated novel method providing better accuracy than the Friedewald equation in the estimation of LDL-C. Kosta CHANG et al. RIP. 2013;310(19): 1832-6103 (http://education.ColosseoEAS.Orange Leap/faq/BLB418) Chol/HDLC Ratio 4.5 <5.0 (calc) [facility] Non-HDL Cholesterol 194(H) <130 mg/dL (calc) [facility] Comment: For patients with diabetes plus 1 major ASCVD risk factor, treating to a non-HDL-C goal of <100 mg/dL (LDL-C of <70 mg/dL) is considered a therapeutic option. Blood Venous blood specimen / Unknown 07/08/2022 2:32 PM EDT 07/08/2022 2:32 PM EDT Narrative [facility] - 07/09/2022 4:55 AM EDT FASTING:NO FASTING: NO Mary Moore [facility] LAB BLOOD ORDERABLES Final Res ult Performing Organization Address City/[facility]/ZIP Co de Phone Number [facility] [address], [place] [address] [facility] [address] [place] [address] * HEPATITIS C AB W/REFL TO HCV RNA, QN, PCR (12/29/2020 4:34 PM EDT) Pathologist [facility] HEPATITIS C ANTIBODY NON-REACT JEREMY NON-REACT JEREMY [facility] INDEX 0.02 <1.00 [facility] Comment: ?? HCV antibody was non-reactive. There is no laboratory ?? evidence of HCV infection. ?? In most cases, no further action is required. However, if recent HCV exposure is suspected, a test for HCV RNA (test code 93204) is suggested. ?? For additional information please refer to http://education.Hubba/faq/CKD72b3 (This link is being provided for informational/ educational purposes only.) ?? 12/29/2020 4:34 PM EDT Mary Moore BUS STARTER HISTORICAL/NON ORDERABLE LABS Final Result Performing Organization Address City/[facility]/ZIP Co de Phone Number [facility] [address] * HIV 1/2 ANTIGEN/ANTIBODY,FOURTH GENERATION W/RFL (12/29/2020 4:34 PM EDT) Pathologist [facility] HIV-1/2 ANTIGEN AND ANTIBODIES, 4TH GENERATION W/ REFLEX NON-REACT JEREMY NON-REACT [facility] Comment: HIV-1 antigen and HIV-1/HIV-2 [...] ? For additional information please refer to http://I Gotchu.Hubba/faq/ZFJ613 (This link is being provided for informational/ educational purposes only.) ? The performance of this assay has not been clinically validated in patients less than 2 years old. ?? 12/29/2020 4:34 PM EDT us Mary Moore BUS STARTER LAB BLOOD ORDERABLES Final Res ult Performing Organization Address [facility]/ZIP Co de Phone Number [facility] [address] * Colposcopy (06/01/2020 12:00 AM EDT) Historical Provider IN CLINIC/BEDSIDE ORDERAB LES Final Result Performing Organization Address [facility] Co de Phone Number [facility] [address] [place] [phone] * 3D BILATERAL DIAGN MAMMO 1 (05/17/2019 2:02 PM EDT) Anatomical Region Laterality Modality Breast Bilateral Mammography 05/17/2019 2:02 PM EDT Narrative 05/17/2019 2:04 PM EDT Refer to the Notes tab for result details [facility] Procedure: 3D BILATERAL DIAGN MAMMO 1 Procedure Note Provider, Zeeshan, - 05/25/2022 Refer to the Notes tab for result details [facility] Procedure: 3D BILATERAL DIAGN MAMMO 1 us Historical Provider IMG BI PROCEDURES Final R esult from Last 3 Months or Most Recently Relevant to Health Maintenance Insurance #1 [place] [address] [facility] C3 HSN FULL #1 [place] [address] . #1 [place] [address] [address] [place] [address] Care Teams Alumina Refinery Operator Relationship Specialty Start Date End Date Mary Moore FNP [address] [place] [address] PCP - General Family Medicine 12/25/20 Kevin Quintero, JO [address] [place] [address] Reimbursement DirectorCommissioning Engineer 04/05/24
--- OUTSIDE RECORDS SUMMARY | 2024-04-30 13:41 | XMS_ITS | Encounter Summary ---
Author Organization [employer] Address [address] [facility] [address] 7t [place] [address] Care Team Providers Care Bindery Machine Feeder Offbearer Name Role Phone Mary Moore SHEN Primary Care Provider [phone] Kevin Quintero RN Unavailable [phone] Encounter Details Date Type Department Care Team (Late st Contact Info) Description 04/01/2024 Orders Only [facility] [address] [place] [address] Khadra Machuca MD [address] [place] [address] Social History Tobacco Use Types Packs/Day Years [...] Description 05/03/2024 11:30 AM EST Office Visit [facility] [address] [place] [address] Cindi Escalona CNM [address] [place] [address] 05/12/2024 11:15 AM EDT Office Visit [facility] [address] [place] [address] Mary Moore FNP [address] [place] [address] documented as of this encounter Procedures Procedure Name Priority Date/Time Associated Diagnosis Comments HPV DNA, LOW/HIGH RISK Routine 04/01/2024 11:10 AM EST documented in this encounter Results * (ABNORMAL) HPV DNA, Low/High Risk (04/01/2024 11:10 AM EST) HPV High Risk Positive(A) Negative [facility] HPV Genotype 16 Positive(A) Negative [facility] HPV Genotype 18 Negative Negative [facility] Comment:HPV testing performe d at [facility] (CLIA#[id number]), [address] [place] [phone].Testing for HPV was performed using the Patrice [...] Machuca MD LAB BLOOD ORDERABLES Final Result [facility] [address] [place] [address] [phone] documented in this encounter Visit Diagnoses Not on filedocumented in this encounter Additional Health Concerns Assessment Noted Time PHQ-9 Depression Total Score: 19 025 11:24 AM EST documented as of this encounter Care Teams Bindery Machine Feeder Offbearer Relationship Specialty Start Date End Date Mary Moore FNP [address] [place] [address] PCP - General Family Medicine 12/25/20 Kevin Quintero RN [address] [place] [address] Power Transformer Repair SupervisorAccess Registrar 04/05/24 documented as of this encounter
--- OUTSIDE RECORDS SUMMARY | 2024-04-30 13:41 | XMS_ITS | Encounter Summary ---
Author Organization [employer] Address [address] [facility] [address] 7t [place] [address] Care Team Providers Care Emt Driver Name Role Phone Mary Moore SHEN Primary Care Provider [phone] Kevin Quintero RN Unavailable [phone] Encounter Details Date Type Department Care Team (Late st Contact Info) Description 04/30/2024 Orders Only [facility] MED[facility] [address] [place] [address] Johnson Kaplan MD [address] [place] [address] Social History Tobacco Use Types Packs/Day Years [...] 11:30 AM EST Office Visit [facility] [address] [place] [address] Cindi Escalona, CNM [address] [place] [address] 05/12/2024 11:15 AM EDT Office Visit [address] [address] Mary Moore, TEXTURING MACHINE FIXER [address] [place] [address] documented as of this encounter Procedures Procedure Name Priority Date/Time Associated Diagnosis Comments XR RIBS 3 VIEWS LEFT W CHEST Routine 04/30/2024 11:05 AM EST documented in this encounter Results * XR Ribs 3 Views Left w/ Chest (04/30/2024 11:05 AM EST) Anatomical Region Laterality Modality Radiographic Vianey ging 04/30/2024 11:0 5 AM EST Narrative 04/30/2024 12:12 PM EST ?[facility] ?[address] ?[place] [address] ?XRay Report ? Signed ? Patient: Wilks,Gabi ?MR#: [id number] ?? [id number] ? : 1980 ?Acct:[id number] ? Age/Sex: 43 / F ?ADM Date: 04/30/24 ? Loc: HO.HHCX ? Attending Dr: Johnson Kaplan MD ? Ordering Physician: Johnson Kaplan MD ?? Date of Service: 04/30/24 ?? Procedure(s): XR ribs LT min 3V w CXR1V ?? Accession Number(s): [id number] ? cc: Johnson Kaplan MD ? EXAMINATION: [...] DD/ 1105 ? TD/TT: 04/30/24 1204 ? Cat Cracker Operator: ? Procedure Note Milka, Image - 04/30/2024 [facility] [address] [place] [address] XRay Report Signed Patient: Gabi Wilks#: [id number] : 1980Acct:[id number] Age/Sex: 43 / FADM Date: 04/30/24 Loc: HO.HHCX Attending Dr: Johnson Kaplan MD Ordering Physician: Johnson Kaplan MD Date of Service: 04/30/24 Procedure(s): XR ribs LT min 3V w CXR1V Accession Number(s): [id number] cc: Johnson Kaplan MD EXAMINATION: XR RIBS, [...] 04/30/24 1209 DD/ 1105 TD/TT: 04/30/24 1204 Cat Cracker Operator: Johnson Kaplan MD IMG XR PROCEDURES Final Result documented in this encounter Visit Diagnoses Not on filedocumented in this encounter Additional Health Concerns Assessment Noted Time PHQ-9 Depression Total Score: 19 025 11:24 AM EST documented as of this encounter Care Teams Emt Driver Relationship Specialty Start Date End Date Mary Moore FNP [address] [place] [address] PCP - General Family Medicine 12/25/20 Kevin Quintero RN [address] [place] [address] Supervisor Leaf Spring RepairCity Councilman 04/05/24 documented as of this encounter
--- OUTSIDE RECORDS SUMMARY | 2024-04-30 13:41 | XMS_ITS | Encounter Summary ---
Author Organization [employer] Address [address] [place] [address] [address] [address] Care Team Providers Care Flat Lock Machine Operator Name Role Phone JessicaMary cat SHEN Primary Care Provider [phone] Kevin Quintero RN Unavailable [phone] Reason for Referral * Consultation (Urgent) - Authorized Specialty Diagnoses / Procedures Referred By Contac t Referred To Contact Obstetrics and Gynecology Diagnoses Atypical squamous cell changes of undetermined significance (ASCUS) on cervical cytology with positive 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 virus (HPV) Cindi Escalona CNM [address] [place] [address] Phone: tel: fax: Usman Choi MD [address] [place] [address] [place] [address] Phone: tel: fax: Referral ID Status Reason Start Date Expiration Date Visits Requested Visits Authorized [id number] Authorized Specialty Services Required 04/15/2024 04/15/2025 1 1 Encounter Details Date Type Department Care Team (Late st Contact Info) Description 04/15/2024 Orders Only [facility] [address] [place] [address] Cindi Escalona CNM [address] [place], [place] Atypical squamous cell changes of undetermined [...] Description 05/03/2024 11:30 AM EST Office Visit [facility] [address] [place] [address] Cindi Escalona CNM [address] [place] [address] 05/12/2024 11:15 AM EDT Office Visit [facility] [address] [place] [address] Mary Moore FNP [address] [place] [address] documented as of this encounter Procedures Procedure Name Priority Date/Time Associated Diagnosis Comments AMB REFERRAL TO OB-FUEL TECHNICIAN Urgent 10:42 AM EST Atypical squamous cell [...] documented as of this encounter Care Teams Flat Lock Machine Operator Relationship Specialty Start Date End Date aMry Moore FNP [address] [place] [address] PCP - General Family Medicine 12/25/20 Kevin Quintero, JO [address] [place] [address] Word Processing Machine OperatorQuantitative Analyst Developer 04/05/24 documented as of this encounter
--- OUTSIDE RECORDS SUMMARY | 2024-04-30 13:41 | XMS_ITS | Encounter Summary ---
Author Organization [employer] Address [address] [place] [address] [address] [place] [address] Care Team Providers Care Costume Draper Name Role Phone Mary Moore SHEN Primary Care Provider [phone] Reason for Referral * Imaging (Urgent) - Closed Specialty Diagnoses / Procedures Referred By Contac t Referred To Contact Radiology Diagnoses Menorrhagia with regular cycle Procedures Us Pelvis complete Cindi Alvarez CNM [address] [place], [place] Phone: tel: fax: [address] Phone: tel: fax: Referral ID Status Reason Start Date Expiration Date Visits Re quested Visits Authorized [id number] Closed 04/01/2024 04/01/2025 1 1 * Imaging (Urgent) - Closed Specialty Diagnoses / Procedures Referred By Contac t Referred To Contact Radiology Diagnoses Menorrhagia with regular cycle Procedures US Pelvis Transvaginal Cindi Alvarez CNM [address] [place] [address] Phone: tel: fax: [address] Phone: tel: fax: Referral ID Status Reason Start Date Expiration Date Visits Re quested Visits Authorized [id number] Closed 04/01/2024 04/01/2025 1 1 Encounter Details Date Type Department Care Team (Latest Contact Info) Description 04/01/2024 10:30 AM EST Procedure Visit [facility] [address] [place] [address] Cindi Alvarez CNM [address] [place] [address] LGSIL on Pap smear of cervix (Primary [...] Description 05/03/2024 11:30 AM EST Office Visit [address] [address] Cindi Alvarez CNM [address] [place] [address] 05/12/2024 11:15 AM EDT Office Visit [address] [address] Mary Moore FNP [address] [place] [address] Scheduled Orders Name Type Priority Associated Diagnoses [...] AM EST 04/02/2024 6:30 AM EST Narrative [facility] - 04/14/2024 6:07 PM EST ----- ------- Name: Gabi Wilks ? Age/Sex: 43/F ? : 1980 Unit#: [id number] ?? Attend Dr: CINDI ALVAREZ [facility] ?Re04/01/24 ?Status: DEP REF ? Location: [facility] ? Disch: ? ----- ------- SPEC : [id number] ? RECD: 04/02/24-629 ? STATUS: ??SOUT ? REQ NUM: [id number] ? ROBEL: 04/01/24-1110 ? SUBM DR: CINDI [...] END OF REPORT ? us Cindi Alvarez [facility] CYTOLOGY ORDERABLES F inal Result [facility] [address] [place] [address] [phone] documented in this encounter Visit Diagnoses Diagnosis LGSIL on Pap smear of cervix- Primary Menorrhagia with regular cycle Dyslipidemia Other and unspecified hyperlipidemia documented in this encounter Additional Health Concerns Assessment Noted Time PHQ-9 Depression Total Score: 19 025 11:24 AM EST documented as of this encounter Care Teams Costume Draper Relationship Specialty Start Date End Date Mary Moore FNP [address] [place] [address] PCP - General Family Medicine 12/25/20 documented as of this encounter
--- OUTSIDE RECORDS SUMMARY | 2024-04-30 13:41 | XMS_ITS | Encounter Summary ---
Author Organization [employer] Address [address] [facility] 7t [place] [address] Care Team Providers Care Bread Oven Operator Name Role Phone Mary Moore SHEN Primary Care Provider [phone] Reason for Visit * Reason Onset Date Comments Pain Group 04/02/2024 Encounter Details Date Type Department Care Team (Late st Contact Info) Description 04/02/2024 Telephone [facility] [address] [place] [address] Rachel [place] [facility] Social History Tobacco Use Types [...] Description 05/03/2024 11:30 AM EST Office Visit [facility] [address] [place] [address] Cindi Escalona CNM [address] [place] [address] 05/12/2024 11:15 AM EDT Office Visit [facility] [address] [place] [address] Mary Moore FNP [address] [place] [address] documented as of this encounter Visit Diagnoses Not on filedocumented in this encounter Additional Health Concerns Assessment Noted Time PHQ-9 Depression Total Score: 19 025 11:24 AM EST documented as of this encounter Care Teams Bread Oven Operator Relationship Specialty Start Date End Date Mary Moore FNP [address] [place] [address] PCP - General Family Medicine 12/25/20 documented as of this encounter
--- OUTSIDE RECORDS SUMMARY | 2024-04-30 13:41 | XMS_ITS | Encounter Summary ---
Author Organization [employer] Address 75 [facility] 7t [place] [address] Care Team Providers Care Log Pond Worker Name Role Phone Mary Moore Primary Care Provider Kevin Quintero RN Unavailable [phone] Reason for Visit * Reason Onset Date Comments Prior Authorization 04/30/2024 Encounter Details Date Type Department Care Team (Late st Contact Info) Description 04/30/2024 Telephone [facility] [address] [place] [address] Mary Moore FNP [address] [place], [place] [phone] Prior Authorization Social History Tobacco Use Types [...] requesting a PA for inhaler listed above. Marine Pipefitter Helper advised Pharmacist the message will be sent. documented in this encounter Plan of Treatment Upcoming Encounters Date Type Department Care Team (Late st Contact Info) Description 05/03/2024 11:30 AM EST Office Visit [facility] [address] [place] [address] Cindi Escalona CNM [address] [place] [address] 05/12/2024 11:15 AM EDT Office Visit [facility] [address] [place] [address] Mary Moore FNP [address] [place] [address] documented as of this encounter Visit Diagnoses Not on filedocumented in this encounter Additional Health Concerns Assessment Noted Time PHQ-9 Depression Total Score: 19 025 11:24 AM EST documented as of this encounter Care Teams Log Pond Worker Relationship Specialty Start Date End Date Mary Moore FNP [address] [place] [address] PCP - General Family Medicine 12/25/20 Kevin Quintero RN [address] [place] [address] M[place]ouse LaborerCoroner Transport Technician 04/05/24 documented as of this encounter
--- OUTSIDE RECORDS SUMMARY | 2024-04-30 13:41 | XMS_ITS | Encounter Summary ---
Author Organization [employer] Address [address] [place] [address] 7t [place] [address] Care Team Providers Care Limousine Driver Name Role Phone Mary Moore Primary Care Provider [phone] Kevin Quintero RN Unavailable [phone] Encounter Details Date Type Department Care Team (Late Contact Info) Description 07/05/2022 Abstract [facility] [address] [place] [address] Mary Moore FNP [address] [place] [phone] Social History Tobacco Use Types Packs/Day Years [...] Description 05/03/2024 11:30 AM EST Office Visit [facility] [address] [place] [address] Cindi Escalona CNM [address] [place], [place] [phone] 05/12/2024 11:15 AM EDT Office Visit [facility] [address] [place] [address] Mary Moore FNP [address] [place] [address] documented as of this encounter Visit Diagnoses Not on filedocumented in this encounter Care Teams Limousine Driver Relationship Specialty Start Date End Date Mary Moore FNP [address] [place] [address] PCP - General Family Medicine 12/25/20 Kevin Quintero RN [address] [place] [address] Fuel Cell DesignerReceiver/Laborer 04/05/24 documented as of this encounter
--- OUTSIDE RECORDS SUMMARY | 2024-04-30 13:41 | XMS_ITS | Encounter Summary ---
Author Organization [employer] Address [address] [facility] [address] 7t [place] [address] Care Team Providers Care Landfill Gas Collection System Operator Name Role Phone Mary Moore SHEN Primary Care Provider [phone] Encounter Details Date Type Department Care Team [...] Description 05/03/2024 11:30 AM EST Office Visit [address] [address] Cindi Escalona CNM [address] [place] [address] 05/12/2024 11:15 AM EDT Office Visit [address] [address] Mary Moore FNP [address] [place] [address] documented as of this encounter Visit Diagnoses Not on filedocumented in this encounter Additional Health Concerns Assessment Noted Time PHQ-9 Depression Total Score: 19 025 11:24 AM EST documented as of this encounter Care Teams Landfill Gas Collection System Operator Relationship Specialty Start Date End Date Mary Moore FNP [address] [place] [address] PCP - General Family Medicine 12/25/20 documented as of this encounter
--- OUTSIDE RECORDS SUMMARY | 2024-04-30 13:41 | XMS_ITS | Encounter Summary ---
Author Organization [employer] Address [address] [facility] 7t [place] [address] Care Team Providers Care Supervisor Pigment Making Name Role Phone Mary Moore Primary Care Provider [phone] Kevin Quintero RN Unavailable [phone] Reason for Visit * Reason Comments Care Coordination SDOH f/u Encounter Details Date Type Department Care Team (Latest Contact Info) Description 04/12/2024 Patient Outreach [facility] [address] [place] [address] Mary Moore FNP [address] [place], [place] [phone] Care Coordination (SDOH f/u) Social History Tobacco [...] at this time. LVM introducing herself from [facility] CM Department. Requested call back. CHW reinforced direct contact information or for any additional questions or concerns and extended clinic hours on Mondays and Wednesdays, and Walk-In Urgent Care Located in [facility]. Patient provided with after-hours line for [facility], , which offer night time triage service and option to transfer to door to door salesperson provider if needed. CHW will attempt another follow up call within 10 days. documented in this encounter Plan of Treatment Upcoming Encounters Date Type Department Care Team ([facility] st Contact Info) Description 05/03/2024 11:30 AM EST Office Visit [facility] [address] [place] [address] Cindi Escalona CNM [address] [place] [address] 05/12/2024 11:15 AM EDT Office Visit [facility] [address] [place] [address] Mary Moore FNP [address] [place] [address] documented as of this encounter Visit Diagnoses Not on filedocumented in this encounter Additional Health Concerns Assessment Noted Time PHQ-9 Depression Total Score: 19 025 11:24 AM EST documented as of this encounter Care Teams Supervisor Pigment Making Relationship Specialty Start Date End Date Mary Moore FNP [address] [place] [address] PCP - General Family Medicine 12/25/20 Kevin Quintero RN [address] [place] [address] Mechanic Industrial TruckPrison Guard Supervisor 04/05/24 documented as of this encounter
--- OUTSIDE RECORDS SUMMARY | 2024-04-30 13:41 | XMS_ITS | Encounter Summary ---
Author Organization [employer] Address [address] [facility] [address] 7t [place] [address] Care Team Providers Care Tumbler Machine Operator Helper Name Role Phone Mary Moore SHEN Primary Care Provider [phone] Kevin Quintero RN Unavailable [phone] Reason for Visit * Reason Onset Date Comments Care Management 04/12/2024 C3CM- f/u call l Encounter Details Date Type Department Care Team (Late st Contact Info) Description 04/12/2024 Telephone [facility] [address] [place] [address] Kevin Quintero, RN [address] [place], [place] [phone] Care Management (C3CM- f/u call lvm) Social [...] at this time. LVM introducing herself from [facility] CM Department. Requested call back. CM reinforced direct contact information or CHW for any additional questions or concerns. Education provided on [facility]. Patient provided with after-hours line for [facility], , which offer night time triage service and option to transfer to control area operator provider if needed. CM will attempt another follow up call within 10 days. documented in this encounter Plan of Treatment Upcoming Encounters Date Type Department Care Team ([facility] st Contact Info) Description 05/03/2024 11:30 AM EST Office Visit [facility] [address] [place] [address] Cindi Escalona CNM [address] [place] [address] 05/12/2024 11:15 AM EDT Office Visit [facility] [address] [place] [address] Mary Moore FNP 505 [place] [address] documented as of this encounter Visit Diagnoses Not on filedocumented in this encounter Additional Health Concerns Assessment Noted Time PHQ-9 Depression Total Score: 19 025 11:24 AM EST documented as of this encounter Care Teams Tumbler Machine Operator Helper Relationship Specialty Start Date End Date Mary Moore FNP [address] [place] [address] PCP - General Family Medicine 12/25/20 Kevin Quintero RN [address] [place] [address] Veneer Repairer MachineAccounts Payable Supervisor 04/05/24 documented as of this encounter
[2024-04-30 13:45] LABS: Amphetamine Screen Urine Not Detected (Not Detect); Barbiturates, Urine Not Detected (Not Detect); Benzodiazepines Screen Urine Not Detected (Not Detect); Buprenorphine Scr Not Detected (Not Detect); Cannabinoid Screen Urine POSITIVE (Not Detect); Cocaine Screen Urine Not Detected (Not Detect); Fentanyl, urine Not Detected (Not Detect); Methadone Screen, Urine Not Detected (Not Detect); Opiate Screen Urine Not Detected (Not Detect); Oxycodone Screen Urine Not Detected (Not Detect); Phencyclidine Screen Urine Not Detected (Not Detect)
[2024-04-30 13:52] LABS: Hematocrit 34.7 % (37.0-47.0); Hemoglobin 10.1 g/dl (12.0-16.0); Mean Corpuscular HGB Conc 29.1 g/dl (31.0-35.0); Mean Corpuscular Hemoglobin 19.9 pg (27.0-33.0); Mean Corpuscular Volume 68.4 fL (80.0-98.0); Mean Platelet Volume 9.8 fL (9.4-12.3); Platelet Count 448 X10*3/uL (160-400); Red Blood Count 5.07 X10*6/uL (4.20-5.50); Red Cell Distribution Width 20.1 % (11.0-16.0)
[2024-04-30 14:06] LABS: Cholesterol 246 mg/dL (<200); HDL Cholesterol 48 mg/dL (>40); LDL Cholesterol Calculated 181 mg/dL (<100); Triglycerides 89 mg/dL (<150)
[2024-04-30 14:21] LABS: TSH reflex Free T4 0.71 uIU/mL (0.32-4.0)
== END 2024-04-30 11:27 | disposition home or self-care (01) ==
LOC: HO.HHCLNP 11:26
PROVIDERS: Advanced Practice Midwife; Visit Provider Registered Nurse
DX: F41.1 Generalized anxiety disorder (principal); N92.0 Excessive and frequent menstruation with regular cycle; E78.5 Hyperlipidemia, unspecified
CPT/HCPCS: 36415; 80061; 80307; 84443; 85027

== ENCOUNTER 2024-05-13 12:36 | Outpatient (REF) | payer MEDICAID, SELFPAY ==
--- NOTE | ~2024-05-13 | US_ITS ---
EXAMINATION: US PELVIS CLINICAL INFORMATION: Menorrhagia. COMPARISON: None available. TECHNIQUE: Ultrasound of the pelvis is performed using both transabdominal and transvaginal transducers along with Doppler. Transvaginal imaging is performed due to inadequate visualization transabdominally. FINDINGS: Uterus: The uterus is anteverted and measures 10.9 x 5.9 x 6.8 cm. There are nabothian cysts within an otherwise normal-appearing cervix. The double wall endometrial thickness is 14 mm. It is uniform. The uterus is smooth in contour and has normal myometrial echogenicity. There is a solitary left fundal fibroid, submucosal, measuring 2.2 x 2.0 x 2.4 cm. Adnexa: Both ovaries are visualized. There is normal color flow to the adnexa. There is no ovarian torsion. There is trace simple pelvic ascites, likely physiologic. There are no adnexal masses. Right ovary measures 3.9 x 1.8 x 1.8 cm. Volume = 6.6 mL. Normal sonographic appearance. Left ovary measures 3.6 x 1.8 x 2.2 cm. Volume = 7.5 mL. Normal sonographic appearance. US/US pelvic and transvaginal IMPRESSION: 1. Normal thickness endometrium measuring 14 mm. 2. There is a submucosal fundal fibroid tumor to the left of midline measuring 2.2 x 2.0 x 2.4 cm. 3. Normal ovaries bilaterally. 4. Trace anechoic free fluid, likely physiologic. Electronically signed by: Magan Artis MD 05/13/2024 02:32 PM EDT
--- OUTSIDE RECORDS SUMMARY | 2024-05-13 15:50 | XMS_ITS | Encounter Summary ---
Author Organization [employer] Address [address] [place] [address] 7t [place] [address] Care Team Providers Care Tonnage Compilation Clerk Name Role Phone Mary Moore Primary Care Provider [phone] Kevin Quintero RN Unavailable [phone] Reason for Visit * Reason Onset Date Comments Triage 05/01/2022 Encounter Details Date Type Department Care Team (Late st Contact Info) Description 05/01/2022 Telephone [facility] [address] [place] [address] Mary Moore FNP [address] [place], [place] [phone] Triage Social History Tobacco Use Types Packs/Day [...] accepted this outcome Please contact pt at [phone] documented in this encounter Plan of Treatment Upcoming Encounters Date Type Department Care Team (Late st Contact Info) Description 08/25/2024 11:15 AM EDT Office Visit [facility] [address] [place] [address] Mary Moore FNP [address] [place] [address] documented as of this encounter Visit Diagnoses Not on filedocumented in this encounter Care Teams Tonnage Compilation Clerk Relationship Specialty Start Date End Date Mary Moore FNP [address] [place] [address] PCP - General Family Medicine 12/25/20 Kevin Quintero RN [address] [place] [address] R[place] Wilhelm [address] Senior Hardware EngineerPolice Dispatcher 04/05/24 documented as of this encounter
--- OUTSIDE RECORDS SUMMARY | 2024-05-13 15:51 | XMS_ITS | Encounter Summary ---
Author Organization [employer] Address [address] [place] [address] [place], [place] [address] Care Team Providers Care Personal Consultant Name Role Phone JessicaMary cat SHEN Primary Care Provider [phone] Kevin Quintero RN Unavailable [phone] Reason for Referral * Consultation (Urgent) - Authorized Specialty Diagnoses / Procedures Referred By Contac t Referred To Contact Obstetrics and Gynecology Diagnoses Atypical squamous cell changes of undetermined significance (ASCUS) on cervical cytology with positive 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 virus (HPV) Cindi Escalona CNM [address] [place] [address] Phone: tel: fax: Usman Choi MD [address] [place] [address] [place] [address] Phone: tel: fax: Referral ID Status Reason Start Date Expiration Date Visits Requested Visits Authorized [id number] Authorized Specialty Services Required 04/15/2024 04/15/2025 1 1 Encounter Details Date Type Department Care Team (Late st Contact Info) Description 04/15/2024 Orders Only [facility] [address] [place] [address] Cindi Escalona CNM [address] [place], [place] Atypical squamous cell changes of undetermined [...] Description 08/25/2024 11:15 AM EDT Office Visit [facility] [address] [place] [address] Mary Moore FNP [address] [place] [address] documented as of this encounter Procedures Procedure Name Priority Date/Time Associated Diagnosis Comments AMB REFERRAL TO OB-CASTING ASSOCIATE Urgent 10:42 AM EST Atypical squamous cell changes of undetermined significance (ASCUS) on cervical cytology with positive 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 virus (HPV) documented in this encounter Results * Referral to Obstetrics / Gynecology (04/30/2024 10:42 AM EST) 04/30/2024 10:4 2 AM EST Cindi VELEZ OUTPATIENT REFERRAL ORDER ANÍBAL Final Result documented in this encounter Visit Diagnoses Diagnosis Atypical squamous cell changes of undetermined significance (ASCUS) on cervical cytology with positive 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 virus (HPV)- Primary documented in this encounter Additional Health Concerns Assessment Noted Time PHQ-9 Depression Total Score: 19 025 11:24 AM EST documented as of this encounter Care Teams Personal Consultant Relationship Specialty Start Date End Date Mary Moore FNP [address] [place] [address] PCP - General Family Medicine 12/25/20 Kevin Quintero, RN [address] [place] [address] Boom Conveyor OperatorOutbound Telemarketing Representative 04/05/24 documented as of this encounter
--- OUTSIDE RECORDS SUMMARY | 2024-05-13 15:51 | XMS_ITS | Encounter Summary ---
Author Organization [employer] Address [address] [facility] [address] 7t [place] [address] Care Team Providers Care Ribbon Lapper Tender Name Role Phone JessicaMary cat SHEN Primary Care Provider [phone] Kevin Quintero RN Unavailable [phone] Reason for Visit * Reason Onset Date Comments Chart Prep 05/10/2024 Encounter Details Date Type Department Care Team (Late st Contact Info) Description 05/10/2024 Telephone [facility] [address] [place] [address] Nishant Quiros MA Chart Prep Social History [...] not want or need it 04/2023 Comments No Sex and Gender Information Value Date Recorded Sex Assigned at Female 12/31/2021 10:17 AM EDT Legal Sex Female 10:17 AM EDT Gender Identity Female 12/31/2021 10:17 AM EDT Sexual Orientation Straight 12/31/2021 10 :17 AM EDT documented as of this encounter Miscellaneous Notes * Telephone Encounter - Nishant Calderón MA - 05/10/2024 2:57 PM EDT Chart Prep Labs: done Images: done Vaccines due: yes Referrals: pending appt Screenings: colonoscopy Overdue care gaps: n/a documented in this encounter Plan of Treatment Upcoming Encounters Date Type Department Care Team ([facility] st Contact Info) Description 08/25/2024 11:15 AM EDT Office Visit [facility] [address] [place] [address] Mary Moore FNP [address] [place] [address] documented as of this encounter Visit Diagnoses Not on filedocumented in this encounter Additional Health Concerns Assessment Noted Time PHQ-9 Depression Total Score: 19 025 11:24 AM EST documented as of this encounter Care Teams Ribbon Lapper Tender Relationship Specialty Start Date End Date Mary Moore FNP [address] [place] [address] PCP - General Family Medicine 12/25/20 Kevin Quintero RN [address] [place] [address] Assembler InsulatorTube Coremaker 04/05/24 documented as of this encounter
--- OUTSIDE RECORDS SUMMARY | 2024-05-13 15:51 | XMS_ITS | Encounter Summary ---
Author Organization [employer] Address [address] [facility] 7t [place] [address] Care Team Providers Care Rod Buster Helper Name Role Phone Mary Moore Primary Care Provider [phone] Kevin Quintero RN Unavailable [phone] Reason for Visit * Reason Onset Date Comments Care Management 05/04/2024 C3CM- f/u call Encounter Details Date Type Department Care Team ([facility] st Contact Info) Description 05/04/2024 Telephone [facility] MEDICINE [address] [place] [address] Mary Moore FNP [address] [place], [place] [phone] Care Management (C3CM- f/u call) Social History [...] Telephone Encounter - Kevin Quintero RN - 05/04/2024 12:01 PM EST CM Kevin Quintero RN and CHW Sheree Noe placed outbound call to patient. Patient's name, and address confirmed. Patient states is doing well with no recent illnesses or emergency room visits.Patient confirms attending visit with Cindi yesterday. Per patient, visit went well. She reports understanding of pap results and plan of care. Per patient, will go ahead with the colposcopy. Patient states she is waiting on a call [place] [facility] [place]. Per patient, was able to reschedule the US to 05/13/24 at 1:30pm. She is also scheduled to see PT on 05/07/24. PAMELA Bentley will assist with scheduling PT1 for these visits and will provide patient with status. Per patient, has not yet rescheduled the mammogram but agrees to do so. Patient states she is doing okay emotionally at this time. She states that her family is now more aware of her mood disorder. Per patient, her children have been verysupportive of her but her mother has not been as much. Patient states she sees her therapist every Friday and has an appt scheduled for this morning at 10am. Patient declines referral to LTSS at this time. She states she is more interested in moving out of her apartment. CHW will assist with resources. Patient confirms picking up the iron supplement from her pharmacy. She is aware that she should be taking it every other day. CM advised she increase fluid and fiber intake and f/u if experiencing constipation. She agrees. Per patient, pharmacy did not have the asmanex in stock. They will call patient when it is available. Patient is aware of her f/u with PCP on 05/12 and denies any barriers to attending. No further questions or concerns. CM reinforced direct contact information or CHW for any additional questions or concerns. Education provided on Walk-In Urgent Care located in [facility] of [facility]. Patient provided with after-hours line for [facility], , which offer night time triage service and option to transfer to conference assistant provider if needed. Patient verbalizes understanding, and able to repeat back to commercial real estate underwriter. A follow up call will be placed within 10 days, patientagrees with plan. documented in this encounter Plan of Treatment Upcoming Encounters Date Type Department Care Team ([facility] st Contact Info) Description 08/25/2024 11:15 AM EDT Office Visit [facility] MEDICINE [address] [place] [address] Mary Moore FNP [address] [place] [address] documented as of this encounter Visit Diagnoses Not on filedocumented in this encounter Additional Health Concerns Assessment Noted Time PHQ-9 Depression Total Score: 19 025 11:24 AM EST documented as of this encounter Care Teams Rod Buster Helper Relationship Specialty Start Date End Date Mary Moore FNP [address] [place] [address] PCP - General Family Medicine 12/25/20 Kevin Quintero RN [address] [place] [phone] Marketing ResearcherTablet Repair 04/05/24 documented as of this encounter
--- OUTSIDE RECORDS SUMMARY | 2024-05-13 15:51 | XMS_ITS | Encounter Summary ---
Author Organization [employer] Address [address] [facility] [address] 7t [place] [address] Care Team Providers Care Reprographics Technician Name Role Phone Mary Moore SHEN Primary Care Provider [phone] Kevin Quintero RN Unavailable [phone] Encounter Details Date Type Department Care Team (Late st Contact Info) Description 05/03/2024 Telephone [facility] MED & PEDS [address] [place], [place] [phone] Johnson Kaplan MD [address] [place] [address] Social History Tobacco Use Types Packs/Day Years [...] encounter Miscellaneous Notes * Telephone Encounter - Johnson Kaplan MD - 05/03/2024 1:11 PM EST Rx changed from Flovent to Asmanex due to insurance coverage issues. Diagnoses and all orders for this visit: Moderate persistent asthma without complication (Primary) - Mometasone Furoate (Asmanex HFA) 200 MCG/ACT aerosol; 1 puff inhalation BID documented in this encounter Plan of Treatment Upcoming Encounters Date Type Department Care Team (Late st Contact Info) Description 08/25/2024 11:15 AM EDT Office Visit [facility] MEDICINE [address] [place] [address] Mary Moore FNP [address] [place] [address] documented as of this encounter Visit Diagnoses Diagnosis Moderate persistent asthma without complication- Primary documented in this encounter Additional Health Concerns Assessment Noted Time PHQ-9 Depression Total Score: 19 025 11:24 AM EST documented as of this encounter Care Teams Reprographics Technician Relationship Specialty Start Date End Date Mary Moore FNP [address] [place] [address] PCP - General Family Medicine 12/25/20 Kevin Quintero RN [address] [place] [address] Retread BuilderApparatus Repair Mechanic 04/05/24 documented as of this encounter
--- OUTSIDE RECORDS SUMMARY | 2024-05-13 15:51 | XMS_ITS | Encounter Summary ---
Author Organization [employer] Address [address] [facility] 7t [place] [address] Care Team Providers Care Door Closer Mechanic Name Role Phone Mary Moore Primary Care Provider [phone] Kevin Quintero RN Unavailable [phone] Reason for Visit * Reason Comments Care Coordination SDOH f/u Encounter Details Date Type Department Care Team (Latest Contact Info) Description 04/26/2024 Patient Outreach [facility] MED & PEDS [address] [place] [address] Mary Moore FNP [address] [place], [place] [phone] Care Coordination (SDOH f/u) Social History Tobacco [...] that happens. Patient only receives income from [employer] not enough for apartmenton her own. CHW [...] Walk-In Urgent Care Located in Lobby of [facility]. Patient provided with after-hours line for [facility], , which offer nighttime triage service and option to transfer to director of search engine optimization provider ifnjolanta. Patient verbalizes understanding, and able to repeat back to racebook writer. A follow up call will be placed within 10 days, patient agrees with plan. documented in this encounter Plan of Treatment Upcoming Encounters Date Type Department Care Team (Late st Contact Info) Description 08/25/2024 11:15 AM EDT Office Visit [facility] MEDICINE [address] [place], [place] [phone] Mary Moore FNP [address] [place], [place] [phone] documented as of this encounter Visit Diagnoses Not on filedocumented in this encounter Additional Health Concerns Assessment Noted Time PHQ-9 Depression Total Score: 19 025 11:24 AM EST documented as of this encounter Care Teams Door Closer Mechanic Relationship Specialty Start Date End Date Mary Moore FNP [address] [place] [address] PCP - General Family Medicine 12/25/20 Kevin Quintero, RN [address] [place] [address] Health Information ClerkDirector Global Strategic Publisher Sales 04/05/24 documented as of this encounter
--- OUTSIDE RECORDS SUMMARY | 2024-05-13 15:51 | XMS_ITS | Encounter Summary ---
Author Organization [employer] Address [address] [facility] 7t [place] [address] Care Team Providers Care Workday Financials Consultant Name Role Phone Mary Moore Primary Care Provider [phone] Kevin Quintero RN Unavailable [phone] Reason for Visit * Reason Onset Date Comments Prior Authorization 04/30/2024 Encounter Details Date Type Department Care Team (Late st Contact Info) Description 04/30/2024 Telephone [facility] MEDICINE [address] [place] [address] Mary Moore FNP [address] [place], [place] [phone] Prior Authorization Social History Tobacco Use Types [...] encounter Miscellaneous Notes * Telephone Encounter - Fay Alcocer RN - 05/03/2024 11:[address] Kaplan, Flovent needs a PA but possible alternatives include Asmanez HFA, Pulmicort Flexhaler, Qvar RediHaler, Budesonide. Would you like to have PA initiated or would you like to Rx an alternative? * Telephone Encounter - Samir Banks - 04/30/2024 11:48 AM EST fluticasone (Flovent HFA) 220 MCG/ACT inhaler Tc from [facility] requesting a PA for inhaler listed above. Butter Liquefier advised Pharmacist the message will be sent. documented in this encounter Plan of Treatment Upcoming Encounters Date Type Department Care Team (Late st Contact Info) Description 08/25/2024 11:15 AM EDT Office Visit [facility] MEDICINE [address] [place] [address] Mary Moore FNP [address] [place] [address] documented as of this encounter Visit Diagnoses Not on filedocumented in this encounter Additional Health Concerns Assessment Noted Time PHQ-9 Depression Total Score: 19 025 11:24 AM EST documented as of this encounter Care Teams Workday Financials Consultant Relationship Specialty Start Date End Date Mary Moore FNP [address] [place] [address] PCP - General Family Medicine 12/25/20 Kevin Quintero RN [address] [place] [address] Parts And Service ManagerAircraft General Repair Mechanic 04/05/24 documented as of this encounter
--- OUTSIDE RECORDS SUMMARY | 2024-05-13 15:51 | XMS_ITS | Encounter Summary ---
Author Organization [employer] Address [address] [facility] 7t [place] [address] Care Team Providers Care Painter Aircraft Name Role Phone JessicaMary cat SHEN Primary Care Provider Kevin Quintero RN Unavailable [phone] Reason for Visit * Reason Comments Gynecologic Encounter Details Date Type Department Care Team (Late st Contact Info) Description 05/03/2024 11:30 AM EST Office Visit [facility] MEDICINE [address] [place], [place] [phone] Cindi Escalona CNM [address] [place], [place] [phone] ASCUS with positive high risk HPV cervical (Primary Dx); Menorrhagia with regular cycle Social History Tobacco Use Types Packs/Day Years [...] Sign Reading Time Taken Comments Blood Pressure 133/87 05/03/2024 11:27 AM EST Pulse 70 05/03/2024 11:27 AM EST Temperature 36.3 ??C (97.3 ??F) 05/03/2024 11:[address] Respiratory Rate 16 05/03/2024 11:27 AM EST Oxygen Saturation 99% 05/03/2024 11:27 AM EST Inhaled Oxygen Concentration - - Weight 89.4 kg (197 lb 3.2 oz) 05/03/2024 11:27 AM EST Height 172.7 cm (5' 8 ) 05/03/2024 11:27 AM EST Body Mass Index 29.98 05/03/2024 11:27 AM EST documented in this encounter Progress Notes * Cindi Escalona CNM - 05/03/2024 11:30 AM EST Subjective Patient ID: Gabi Wilks is a 43 y.o. female who presents for pap results Here to discuss pap results. ASCUS HPV pos, subtype 16 at last visit 03/2024. Referred for colposcopy. No appointment scheduled as of today. Previous pap hx: LSIL HPV positive pap preceded by negativecolpo in 2020 for ASCUS HPV pos, neg 16/18 pap in 2019. No current partner, not sexually active. Has cut back on smoking from 1/2PPD to 2 cigarettes/day. Missed pelvic ultrasound appointment for evaluation of heavy menses, would like to r/s. Needs transportation, lives in [place]. Insurance didn't cover Feosol, needs 325mg tablets. Review of Systems Objective BP 133/87 (BP Location: Left arm, Patient Position: Sitting, BP Cuff Size: Large adult) Pulse 70 Temp 97.3 ??F (36.3 ??C) (Temporal) Resp 16 Ht 5' 8 (1.727 m) Wt 197 lb 3.2 oz (89.4 kg) LMP 04/19/2024 (Exact Date) SpO2 99% BMI 29.98 kg/m?? Physical Exam Constitutional: Appearance: Normal appearance. Neurological: Mental Status: She is alert. Psychiatric: Mood and Affect: Mood normal. Behavior: Behavior normal. Assessment/Plan Diagnoses and all orders for this visit: ASCUS with positive high risk HPV cervical Cutting back on smoking is great - keep up the good work. This can help body clear HPV. Let us knowif you need help. Reviewed pap and HPV results, HPV prevalence and colposcopy procedure. May premedicate with OTC pain medication prior to colposcopy appointment. Menorrhagia with regular cycle Given number to r/s ultrasound appt and information on shuttle van for transportation. If shuttle times don't work, will do PT1. Feosol 325mg sent in, take every other day. Other orders - Ferrous Sulfate (iron) 325 (65 Fe) MG tablet; Take 1 tablet (325 mg) by mouth every other day. documented in this encounter Plan of Treatment Upcoming Encounters Date Type Department Care Team ([facility] st Contact Info) Description 08/25/2024 11:15 AM EDT Office Visit [facility] MEDICINE [address] [place] [address] Mary Moore FNP [address] [place], [place] [phone] documented as of this encounter Visit Diagnoses Diagnosis ASCUS with positive high risk HPV cervical- Primary Menorrhagia with regular cycle documented in this encounter Additional Health Concerns Assessment Noted Time PHQ-9 Depression Total Score: 19 025 11:24 AM EST documented as of this encounter Care Teams Painter Aircraft Relationship Specialty Start Date End Date Mary Moore FNP [address] [place] [address] PCP - General Family Medicine 12/25/20 Kevin Quintero RN [address] [place] [address] Nut ChopperDowel Sander Operator 04/05/24 documented as of this encounter
--- OUTSIDE RECORDS SUMMARY | 2024-05-13 15:51 | XMS_ITS | Encounter Summary ---
Author Organization [employer] Address [address] [facility] 7t [place] [address] Care Team Providers Care [place] Guide Name Role Phone Mary Moore Primary Care Provider [phone] Kevin Quintero RN Unavailable [phone] Reason for Visit * Reason Onset Date Comments Care Management 04/26/2024 C3CM- f/u call Encounter Details Date Type Department Care Team ([facility] st Contact Info) Description 04/26/2024 Telephone [facility] MEDICINE [address] [place] [address] Mary Moore FNP [address] [place], [place] [address] Care Management (C3CM- f/u call) Social History [...] that she had scheduled for today at [facility]. CM advised she contact [facility] centralized schedulingto reschedule these visits. CM provided [...] provided on Walk-In Urgent Care located in [facility] of [facility]. Patient provided with after-hours line for [facility], , which offer night time triage service and option to transfer to test kitchen home economist provider if needed. Patient verbalizes understanding, and able to repeat back to account underwriter. A follow up call will be placed within 10 days, patientagrees with plan. documented in this encounter Plan of Treatment Upcoming Encounters Date Type Department Care Team ([facility] st Contact Info) Description 08/25/2024 11:15 AM EDT Office Visit [facility] MEDICINE [address] [place] [address] Mary Moore FNP [address] [place] [address] documented as of this encounter Visit Diagnoses Not on filedocumented in this encounter Additional Health Concerns Assessment Noted Time PHQ-9 Depression Total Score: 19 03/17/ 025 11:24 AM EST documented as of this encounter Care Teams [place] Guide Relationship Specialty Start Date End Date Mary Moore FNP [address] [place] [address] PCP - General Family Medicine 12/25/20 Kevin Quintero RN [address] [place] [address] Certified Composites TechnicianAssistant Professor Of Physics 04/05/24 documented as of this encounter
--- OUTSIDE RECORDS SUMMARY | 2024-05-13 15:51 | XMS_ITS | Encounter Summary ---
Author Organization [employer] Address [address] [facility] [address] 7t [place] [address] Care Team Providers Care Freight Service Inspector Name Role Phone Mary Moore SHEN Primary Care Provider Kevin Quintero RN Unavailable [phone] Encounter Details Date Type Department Care Team (Latest Contact Info) Description 05/07/2024 Travel Social History Tobacco Use Types Packs/Day [...] Upcoming Encounters Date Type Department Care Team ([facility] st Contact Info) Description 08/25/2024 11:15 AM EDT Office Visit [facility] MEDICINE [address] [place] [address] Mary Moore FNP [address] [place] [address] documented as of this encounter Visit Diagnoses Not on filedocumented in this encounter Additional Health Concerns Assessment Noted Time PHQ-9 Depression Total Score: 19 025 11:24 AM EST documented as of this encounter Care Teams Freight Service Inspector Relationship Specialty Start Date End Date Mary Moore FNP [address] [place] [address] PCP - General Family Medicine 12/25/20 Kevin Quintero RN [address] [place] [address] Machine FeederFishing Boat Captain 04/05/24 documented as of this encounter
--- OUTSIDE RECORDS SUMMARY | 2024-05-13 15:51 | XMS_ITS | Encounter Summary ---
Author Organization [employer] Address [address] [facility] 7t [place] [address] Care Team Providers Care Payroll Machine Operator Name Role Phone Mary Moore Primary Care Provider [phone] Kevin Quintero RN Unavailable [phone] Reason for Visit * Reason Comments Care Coordination PT1/SDOH Encounter Details Date Type Department Care Team (Latest Contact Info) Description 05/04/2024 Patient Outreach [facility] MED & PEDS [address] [place], [place] [phone] Mary Moore FNP [address] [place], [place] [phone] Care Coordination (PT1/SDOH) Social History Tobacco Use Types Packs/Day Years [...] encounter Progress Notes * Sheree Noe - 05/04/2024 10:12 AM EST CHW Sheree Noe/SIMON Quintero RN placed outbound call to patient to follow up on SDOH needs.Patient's name, and address confirmed. Patient states is doing well. CHW submitted PT1 to for [address], CHW will help patient schedule PT1 once approved to appt on 1am to [facility] for PT and appt for Ultrasound on 05/13/24 130pm at [facility]. No further questions or concerns. CHW reinforced direct contact information or CM for any additional questions or concerns and extended clinic hours on Mondays and Wednesdays, and Walk-In Urgent Care Located in [facility]. Patient provided with after-hours line for [facility], , which offer night time triage service and option to transfer to sewer connector provider if needed. Patient verbalizes understanding, and able to repeat back to typewriter ribbon winder. A follow up call willbe placed within 10 days, patient agrees with plan. documented in this encounter Plan of Treatment Upcoming Encounters Date Type Department Care Team ([facility] st Contact Info) Description 08/25/2024 11:15 AM EDT Office Visit [facility] MEDICINE [address] [place] [address] Mary Moore FNP [address] [place] [address] documented as of this encounter Visit Diagnoses Not on filedocumented in this encounter Additional Health Concerns Assessment Noted Time PHQ-9 Depression Total Score: 19 025 11:24 AM EST documented as of this encounter Care Teams Payroll Machine Operator Relationship Specialty Start Date End Date Mary Moore FNP [address] [place] [address] PCP - General Family Medicine 12/25/20 Kevin Quintero RN [address] [place] [address] Log Operations CoordinatorQuality Assurance Technician 04/05/24 documented as of this encounter
--- OUTSIDE RECORDS SUMMARY | 2024-05-13 15:51 | XMS_ITS | Encounter Summary ---
Author Organization [employer] Address [address] [facility] [address] 7[address] [place] [address] Care Team Providers Care Tipple Mechanic Name Role Phone Mary Moore SHEN Primary Care Provider [phone] Kevin Quintero RN Unavailable [phone] Encounter Details Date Type Department Care Team ([facility] st Contact Info) Description 04/30/2024 Orders Only [facility] MEDICINE [address] [place], [place] [phone] Cindi Escalona CNM [address] [place], [place] [phone] Social History Tobacco Use Types Packs/Day Years [...] Description 08/25/2024 11:15 AM EDT Office Visit [facility] MEDICINE [address] [place] [address] Mary Moore FNP [address] [place] [address] documented as of this encounter Visit Diagnoses Not on filedocumented in this encounter Additional Health Concerns Assessment Noted Time PHQ-9 Depression Total Score: 19 025 11:24 AM EST documented as of this encounter Care Teams Tipple Mechanic Relationship Specialty Start Date End Date Mary Moore FNP [address] [place] [address] PCP - General Family Medicine 12/25/20 Kevin Quintero, JO [address] [place] [address] Refrigeration System InstallerProcess Control Supervisor 04/05/24 documented as of this encounter
--- OUTSIDE RECORDS SUMMARY | 2024-05-13 15:51 | XMS_ITS | Encounter Summary ---
Author Organization [employer] Address [address] [facility] [address] 7t [place] [address] Care Team Providers Care Labor Delivery Specialist Name Role Phone Mary Moore SHEN Primary Care Provider [phone] Kevin Quintero RN Unavailable [phone] Encounter Details Date Type Department Care Team (Latest Contact Info) Description 05/03/2024 Travel Social History Tobacco Use Types Packs/Day [...] Upcoming Encounters Date Type Department Care Team ([facility] st Contact Info) Description 08/25/2024 11:15 AM EDT Office Visit [facility] MEDICINE [address] [place] [address] Mary Moore FNP [address] [place] [address] documented as of this encounter Visit Diagnoses Not on filedocumented in this encounter Additional Health Concerns Assessment Noted Time PHQ-9 Depression Total Score: 19 025 11:24 AM EST documented as of this encounter Care Teams Labor Delivery Specialist Relationship Specialty Start Date End Date Mary Moore FNP [address] [place] [address] PCP - General Family Medicine 12/25/20 Kevin Quintero RN [address] [place] [address] Paper InserterChild Support Specialist 04/05/24 documented as of this encounter
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
--- OUTSIDE RECORDS SUMMARY | 2024-05-13 15:51 | XMS_ITS | Encounter Summary ---
Author Organization [employer] Address [address] [place] [address] Care Team Providers Care Washer Operator Name Role Phone Mray Moore SHEN Primary Care Provider [phone] Kevin Quintero RN Unavailable [phone] Encounter Details Date Type Department Care [...] Visit [facility] [address] [place] [address] Mary Moore FNP [address] [place] [address] documented as of this encounter Visit Diagnoses Not on filedocumented in this encounter Additional Health Concerns Assessment Noted Time PHQ-9 Depression Total Score: 19 025 11:24 AM EST documented as of this encounter Care Teams Washer Operator Relationship Specialty Start Date End Date Mary Moore FNP [address] [place] [address] PCP - General Family Medicine 12/25/20 Kevin Quintero RN [address] [place] [address] Commercial Roofing EstimatorRegional Airline Pilot 04/05/24 documented as of this encounter
--- OUTSIDE RECORDS SUMMARY | 2024-05-13 15:51 | XMS_ITS | Encounter Summary ---
Author Organization [employer] Address [address] 7t [place] [address] Care Team Providers Care Instructor Looping Name Role Phone Mary Moore Primary Care Provider [phone] Kevin Quintero RN Unavailable [phone] Reason for Visit * Reason Comments Care Coordination PT1 Encounter Details Date Type Department Care Team (Latest Contact Info) Description 04/28/2024 Patient Outreach [facility] [address] [place], [place] [phone] Mary Moore FNP [address] [place], [place] [phone] Care Coordination (PT1) Social History Tobacco Use [...] 11:15am with ARTEMIO Moore both at [facility]. LVM with details. CHW will follow up with patient before appts. documented in this encounter Plan of Treatment Upcoming Encounters Date Type Department Care Team (Late st Contact Info) Description 08/25/2024 11:15 AM EDT Office Visit [facility] [address] [place] [address] Mary Moore FNP [address] [place] [address] documented as of this encounter Visit Diagnoses Not on filedocumented in this encounter Additional Health Concerns Assessment Noted Time PHQ-9 Depression Total Score: 19 025 11:24 AM EST documented as of this encounter Care Teams Instructor Looping Relationship Specialty Start Date End Date aMry Moore FNP [address] [place] [address] PCP - General Family Medicine 12/25/20 Kevin Quintero RN [address] [place] [address] Loft RiggerRailroad Accountant 04/05/24 documented as of this encounter
--- OUTSIDE RECORDS SUMMARY | 2024-05-13 15:51 | XMS_ITS | Encounter Summary ---
Author Organization [employer] Address [address] [place] [address] Care Team Providers Care Clinical Provider Trainer Name Role Phone Mary Moore SHEN Primary Care Provider [phone] Kevin Quintero RN Unavailable [phone] Encounter Details Date Type Department Care Team (Late st Contact Info) Description 04/30/2024 Orders Only [facility] [address] [place] [address] Johnson Kaplan MD [address] [place] [address] Social History Tobacco Use Types Packs/Day Years [...] Description 08/25/2024 11:15 AM EDT Office Visit [facility] [address] [place] [address] Mary Moore, OUTDOOR FITNESS TRAINER [address] [place] [address] documented as of this encounter Procedures Procedure Name Priority Date/Time Associated Diagnosis Comments XR RIBS 3 VIEWS LEFT W CHEST Routine 04/30/2024 11:05 AM EST documented in this encounter Results * XR Ribs 3 Views Left w/ Chest (04/30/2024 11:05 AM EST) Anatomical Region Laterality Modality Radiographic Vianey ging 04/30/2024 11:0 5 AM EST Narrative 04/30/2024 12:12 PM EST ?[facility] ?[address] ?[place] [address] ?XRay Report ? Signed ? Patient: Wilks,Gabi ?MR#: [id number] ?? [id number] ? : 1980 ?Acct:[id number] ? Age/Sex: 43 / F ?ADM Date: 04/30/25 ? Loc: HO.HHCX ? Attending Dr: Johnson Kaplan MD ? Ordering Physician: Johnson Kaplan MD ?? Date of Service: 04/30/24 ?? Procedure(s): XR ribs LT min 3V w CXR1V ?? Accession Number(s): [id number] ? cc: Johnson Kaplan MD ? EXAMINATION: [...] DD/ 1105 ? TD/TT: 04/30/24 1204 ? Drywall Hanger Framer: ? Procedure Note Martydarinellidiakrystle, Image - 04/30/[address] [address] XRay Report Signed Patient: Gabi WilksMR#: [id number] : 1980Acct:[id number] Age/Sex: 43 / FADM Date: 04/30/24 Loc: HO.HHCX Attending Dr: Johnson Kaplan MD Ordering Physician: Johnson Kaplan MD Date of Service: 04/30/24 Procedure(s): XR ribs LT min 3V w CXR1V Accession Number(s): [id number] cc: Johnson Kaplan MD EXAMINATION: XR RIBS, [...] 04/30/24 1209 DD/ 1105 TD/TT: 04/30/24 1204 Drywall Hanger Framer: Johnson Kaplan MD IMG XR PROCEDURES Final Result documented in this encounter Visit Diagnoses Not on filedocumented in this encounter Additional Health Concerns Assessment Noted Time PHQ-9 Depression Total Score: 19 025 11:24 AM EST documented as of this encounter Care Teams Clinical Provider Trainer Relationship Specialty Start Date End Date Mary Moore FNP [address] [place] [address] PCP - General Family Medicine 12/25/20 Kevin Quintero, JO [address] [place] [address] Certified Medical DosimetristDairy Machine Operator Farmworker 04/05/24 documented as of this encounter
--- OUTSIDE RECORDS SUMMARY | 2024-05-13 15:51 | XMS_ITS | Encounter Summary ---
Author Organization [employer] Address [address] [place] [address] Care Team Providers Care Signal Apprentice Name Role Phone JessicaMary cat SHEN Primary Care Provider [phone] Kevin Quintero RN Unavailable [phone] Reason for Visit * Reason Comments LUQ pain Pt presents with mul tiple s/s: LUQ pain, back pain, anxiety, cough, etc Encounter Details Date Type Department Care Team (Latest Contact Info) Description 04/30/2024 10:00 AM EST Office Visit [facility] [address] [place] [phone] Johnson Kaplan MD [address] [place] [phone] Anxiety (Primary Dx); Chest wall pain; Moderate [...] the past 12 months, has t he [employer], gas, oil or water company threatened to [...] 05/17/2024. Feels safe to self and others. yarn winder appreciated rhonchi and wheezing. Albuterol via nebulizer [...] inhaler; Use as instructed Patient presents to [facility] due to increased anxiety related [...] Visit [facility] [address] [place] [address] Mary Moore FNP [address] [place] [address] Scheduled Orders Name Type Priority Associated Diagnoses [...] documented as of this encounter Care Teams Signal Apprentice Relationship Specialty Start Date End Date Mary Moore FNP [address] [place] [address] PCP - General Family Medicine 12/25/20 Kevin Quintero RN [address] [place] [address] Inkjet OperatorPrinting Engineer 04/05/24 documented as of this encounter
--- OUTSIDE RECORDS SUMMARY | 2024-05-13 15:51 | XMS_ITS | Encounter Summary ---
Author Organization [employer] Address [address] [facility] [address]t [place] [address] Care Team Providers Care Geospatial Extractor Analysis Name Role Phone Mary Moore Primary Care Provider [phone] Kevin Quintero RN Unavailable [phone] Reason for Visit * Reason Comments Care Coordination PT1 Encounter Details Date Type Department Care Team (Latest Contact Info) Description 05/05/2024 Patient Outreach [facility] [address] [place], [place] [phone] Mary Moore FNP [address] [place], [place] [phone] Care Coordination (PT1) Social History Tobacco Use [...] encounter Progress Notes * Sheree Noe - 05/05/2024 8:46 AM EST CHW Sheree Noe placed call to patient to let her know that I scheduled her PT1 for upcoming appts 05/07/24 11am to [facility] [place] and appt for Ultrasound on 05/13/24 130pm at [facility] CHW LVM with all the details. CHW will f/u with patient within 10 days. documented in this encounter Plan of Treatment Upcoming Encounters Date Type Department Care Team (Late st Contact Info) Description 08/25/2024 11:15 AM EDT Office Visit [facility] [address] [place] [address] Mary Moore FNP [address] [place] [address] documented as of this encounter Visit Diagnoses Not on filedocumented in this encounter Additional Health Concerns Assessment Noted Time PHQ-9 Depression Total Score: 19 025 11:24 AM EST documented as of this encounter Care Teams Geospatial Extractor Analysis Relationship Specialty Start Date End Date Mary Moore FNP [address] [place] [address] PCP - General Family Medicine 12/25/20 Kevin Quintero RN [address] [place] [address] Wall Crane OperatorCommunity Program Assistant 04/05/24 documented as of this encounter
--- OUTSIDE RECORDS SUMMARY | 2024-05-13 15:51 | XMS_ITS | Encounter Summary ---
Author Organization [employer] Address [address] [facility] [address]t [place] [address] Care Team Providers Care Reading Recovery Teacher Name Role Phone Mary Moore Primary Care Provider [phone] Kevin Quintero RN Unavailable [phone] Reason for Visit * Reason Onset Date Comments Med Refill 04/26/2024 Encounter Details Date Type Department Care Team (Late st Contact Info) Description 04/26/2024 Refill [facility] [address] [place] [address] Mary Moore FNP [address] [place], [place] [phone] Low back pain at multiple sites; Discogenic [...] Office Visit [facility] [address] [place] [address] Mary Moore FNP [address] [place] [address] documented as of this encounter Visit Diagnoses Diagnosis Low back pain at multiple sites Discogenic lumbar pain documented in this encounter Additional Health Concerns Assessment Noted Time PHQ-9 Depression Total Score: 19 025 11:24 AM EST documented as of this encounter Care Teams Reading Recovery Teacher Relationship Specialty Start Date End Date Mary Moore FNP [address] [place] [address] PCP - General Family Medicine 12/25/20 Kevin Quintero RN [address] [place] [address] Saw RepairerAeronautical Design Engineer 04/05/24 documented as of this encounter
--- OUTSIDE RECORDS SUMMARY | 2024-05-13 15:51 | XMS_ITS | Encounter Summary ---
Author Organization [employer] Address [address] [place] [address] Care Team Providers Care Button Cutter Name Role Phone Mary Moore SHEN Primary Care Provider [phone] Kevin Quintero RN Unavailable [phone] Encounter Details Date Type Department Care Team (Latest Contact Info) Description 05/12/2024 Travel Social History Tobacco Use Types Packs/Day [...] Upcoming Encounters Date Type Department Care Team ([facility] st Contact Info) Description 08/25/2024 11:15 AM EDT Office Visit [facility] [address] [place] [address] Mary Moore FNP [address] [place] [address] documented as of this encounter Visit Diagnoses Not on filedocumented in this encounter Additional Health Concerns Assessment Noted Time PHQ-9 Depression Total Score: 19 025 11:24 AM EST documented as of this encounter Care Teams Button Cutter Relationship Specialty Start Date End Date Mary Moore FNP [address] [place] [address] PCP - General Family Medicine 12/25/20 Kevin Quintero RN [address] [place] [address] Speech Communication InstructorLogistics And Planning Manager 04/05/24 documented as of this encounter
--- OUTSIDE RECORDS SUMMARY | 2024-05-13 15:51 | XMS_ITS | Encounter Summary ---
Author Organization [employer] Address [address] [place] [address] Care Team Providers Care Four Slide Machine Operator Name Role Phone Mary Moore SHEN Primary Care Provider [phone] Kevin Quintero RN Unavailable [phone] Reason for Visit * Reason Onset Date Comments [facility] triage 04/30/2024 Encounter Details Date Type Department Care Team (Late st Contact Info) Description 04/30/2024 Telephone [facility] [address] [place] [address] Shayy Wise RN [facility] triage Social History Tobacco Use Types [...] 04/30/2024 10:25 AM EST Pt presents to [facility] reporting to FD: chest pain and right arm tingling Pt taken for immediate triage y this technical proposal writer 1000: Pt is upset about [...] all this anxiety and fighting . EKG: P/MN: 108/114 ms QRS: 82 ms QT/Qtc: 418/441 ms P/QRS/T axis: -73502/37 eg HR: 67 bpm Sinus rhythm 1020 [...] everything for them: She moved up from [facility] 8 years ago. She states I keep to myself , she does not have any social supports available. She does endorse seeking out supports. Pt is in NAD, nebulizer in process Awaits provider eval documented in this encounter Plan of Treatment Upcoming Encounters Date Type Department Care Team ([facility] st Contact Info) Description 08/25/2024 11:15 AM EDT Office Visit [facility] [address] [place] [address] Mary Moore FNP [address] [place] [address] documented as of this encounter Visit Diagnoses Not on filedocumented in this encounter Additional Health Concerns Assessment Noted Time PHQ-9 Depression Total Score: 19 025 11:24 AM EST documented as of this encounter Care Teams Four Slide Machine Operator Relationship Specialty Start Date End Date Mary Moore FNP [address] [place] [address] PCP - General Family Medicine 12/25/20 Kevin Quintero, JO [address] [place] [address] Toe StaplerField Representative 04/05/24 documented as of this encounter
--- OUTSIDE RECORDS SUMMARY | 2024-05-13 15:52 | XMS_ITS | Clinical Summary ---
Author Organization [employer] Address [address] [facility] [address] [place] [address] Care Team Providers Care Insights Analyst Name Role Phone JessicaMary cat SHEN Primary Care Provider [phone] Kevin Quintero RN Unavailable [phone] Allergies No known active allergies Medications [...] as directed by provider. 30 patch 11 024 Active melatonin 5 MG tabletIndication s:Sleep difficulties [...] breath. 18 g 3 025 2025 Active Spacer/Aero-Hold ing Chambers (AeroChamber MV) inhalerIndicatio ns:Moderate persistent asthma, uncomplicated Use as instructed 1 each 2 025 2025 Active Ferrous Sulfate (iron) 325 (65 Fe) MG tablet Take 1 tablet (325 mg) by mouth every other day. 30 tablet 1 025 Active Mometasone Furoate (Asmanex HFA) 200 MCG/ACT aerosolIndicatio ns:Moderate persistent asthma without complication 1 puff inhalation BID 13 g 2 025 Active fluticasone (Flovent HFA) 220 MCG/ACT inhalerIndicatio [...] eorder (will not trigger notification to Pharmacy)) fluticasone (Flovent HFA) 220 MCG/ACT inhalerIndicatio ns:Moderate persistent asthma, uncomplicated Inhale 1 puff every 12 (twelve) hours. 12 g 3 025 2024 Discontinued Ferrous Sulfate Dried (Feosol) 200 (65 Fe) MG tablet Take 1 tablet by mouth every other day. 30 tablet 1 025 2024 Discontinued Hospital, Clinic, or Other Facility Administered Medication Ordered Dose Route Frequency Start Date End Date Status albuterol (2.5 MG/3ML) 0.083% nebulizer solution 2.5 mgIndications:Chest wall pain 2.5 mg NEBULIZATION Once 04/30/2024 04/30/2024 Ended Active Problems Problem Noted Date Diagnosed Date Sleep difficulties 05/13/2024 Assessment & Plan (05/13/2024 8:56 AM EDT): Continue magnesium 400 mg nightly Menorrhagia with regular cycle 04/01/2024 Marijuana use 03/19/2024 Healthcare maintenance 09/03/2023 Overview (05/13/2024): OPH: CEE 10/21/22 at [facility]. Due Oct 2024 Last PE: 09/03/23 Tdap: last 09/03/23 Routine Cancer Screening Mammo: Last available May 2019: BIRADS 3. Order placed 03/17/2024 Pap: ASCUS, HR HPV positive on 04/01/24. Referred to [facility] for colposcopy. Previous: ASCUS HPV pos, neg [...] of self harm Referred for OP therapy ([facility]). Plan for initial appt within the [...] [facility] during next PCP visit, if needed Moderate persistent asthma without complication 07/11/2022 Overview (05/13/2024): Maintenance: Asmanex HFA 200 mcg/act -1 puff twice daily Rescue: albuterol PRN Assessment & Plan (05/13/2024 8:53 AM EDT): Cont with above, Follow up with any worsening of symptoms Assessment & Plan (09/04/2023 2:40 PM EDT): Cont with above, Follow up with any worsening of symptoms Assessment & Plan (07/11/2022 4:05 PM EDT): Follow up with any worsening of symptoms Cigarette smoker 07/11/2022 Assessment & Plan (05/13/2024 8:55 AM EDT): Decreased from 10 cigg/day March 2024 to 3 cigg/day today. Congratulated on smoking cessation efforts and encouraged to continue Previous trials of NRT and Varenicline Follow up if interested in smoking cessation resources through [facility] Assessment & Plan (07/11/2022 4:36 PM EDT): ?? Currently smoking up to 0.5 pack per day ?? Previous trials of NRT and Varenicline ?? Follow up if interested in smoking cessation resources through [facility] Discogenic lumbar pain 01/18/2021 Overview (05/13/2024): Specialists: previously referred to physiatry. They had recommended PT and to return if worsening for consideration of injection Continue with symptomatic relief measures such as warm bath/shower, APAP & ibuprofen PRN, stretching Referral to physical therapy placed 09/03/23, re-sent on 03/18/2024 As of May 2024, established with PT and noting improvement with sessions Assessment & Plan (05/13/2024 8:53 AM EDT): Continue current plan Assessment & Plan (03/18/2024 9:49 AM EST): Referral to physical therapy, also scheduled for [facility] chronic pain group clinic Assessment & Plan (07/11/2022 4:32 PM EDT): Follow up as needed Generalized anxiety disorder 01/06/2021 Assessment & Plan (05/13/2024 8:55 AM EDT): BE completed March 2024, see documentation for further details BH: Weekly therapy sessions through [facility] Pharmacotherapy: Discussed risks/benefits, she will consider. She is scheduled for visit with psych nurse practitioner Mary Dominique on 05/17/2024 Primary goal: Housing. Engaged with care management. Assessment & Plan (03/18/2024 9:52 AM EST): BE completed today, see documentation for further details BH: Weekly therapy sessions through [facility] Pharmacotherapy: Discussed risks/benefits, she will consider Primary goal: Housing. Referred to care management team for further assistance and support. Thyroid nodule 01/06/2021 Resolved Problems Problem Noted Date Diagnosed Date Resolved Date Costochondritis 09/02/2022 05/13/2024 Assessment & Plan (09/02/2022 10:05 AM EDT): -EKG unremarable. -Exam and history consitant with costochondritis. -Recomend rest, warm compresses, ibuprofen, and cyclobenzaprine for pain. Encounters * This document contains information received from the source organization and may not represent a complete record from that organization. Date Type Department Care Team Description 05/12/2024 11:15 AM EDT Office Visit [facility] [address] [place] [address] Mary Moore, SHEN Discogenic lumbar pain (Primary Dx); Moderate persistent asthma without complication; Generalized anxiety disorder; Cigarette smoker; Sleep difficulties; Healthcare maintenance 05/12/2024 Travel 05/10/2024 Telephone [facility] [address] [place] [address] Nishant Quiros MA Chart Prep 05/07/2024 Travel 05/05/2024 Patient Outreach [facility] [address] [place] [address] Mary Moore FNP Care Coordination (PT1) 05/04/2024 Telephone [facility] [address] [place] [address] Mary Moore FNP Care Management (C3CM- f/u call) 05/04/2024 Patient Outreach [facility] [address] [place] [address] Mary Moore FNP Care Coordination (PT1/SDTX) 05/03/2024 11:30 AM EST Office Visit [facility] [address] [place] [phone] Malcolm Alvarez CNM ASCUS with positive high risk HPV cervical (Primary Dx); Menorrhagia with regular cycle 05/03/2024 Telephone [facility] [address] [place] [address] Johnson Kaplan MD 05/03/2024 Travel 04/30/2024 10:00 AM EST Office Visit [facility] [address] [place] [address] Johnson Kaplan MD Anxiety (Primary Dx); Chest wall pain; Moderate persistent asthma, uncomplicated 04/30/2024 Orders Only [facility] [address] [place] [address] Malcolm Alvarez CNM 04/30/2024 Orders Only [facility] [address] [place] [address] Johnson Kaplan MD 04/30/[address] [address] Mary Moore FNP Prior Authorization 04/30/2024 Telephone [facility] [address] [place] [address] Shayy Wise RN [facility] triage 04/30/2024 Travel 04/28/2024 Patient Outreach [facility] [address] [place] [address] Mary Moore FNP Care Coordination (PT1) 04/26/2024 Telephone [facility] [address] [place] [phone] Mary Moore FNP Care Management (C3CM- f/u call) 04/26/2024 Patient Outreach [facility] [address] [place] [address] Mary Moore FNP Care Coordination (SDOH f/u) 04/26/2024 Refill [facility] [address] [place] [phone] Mary Moore FNP Low back pain at multiple sites; Discogenic lumbar pain 04/15/2024 Orders Only [facility] [address] [place] [address] Malcolm Alvarez CNM Atypical squamous cell changes of undetermined significance (ASCUS) on cervical cytology with positive 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 virus (HPV) (Primary Dx) 04/12/2024 Patient Outreach [facility] [address] [place] [phone] Mary Moore FNP Care Coordination (SDOH f/u) 04/12/[address] [address] Kevin Quintero, RN Care Management (C3CM- f/u call lvm) 04/05/[address] [address] Kevin Quintero, RN Care Management (C3CM- initial assessment/ enrollment) 04/02/[address] [address] Rachel Luther [place] Pain [facility] 04/01/2024 10:30 AM EST Procedure Visit [address] [address] Malcolm Alvarez CNM LGSIL on Pap smear of cervix (Primary Dx); Menorrhagia with regular cycle; Dyslipidemia 04/01/2024 Orders Only [address] [address] Khadra Machuca MD 04/01/2024 Travel 03/25/2024 Travel 03/24/2024 Travel 03/24/2024 Patient Outreach [facility] [address] [place] [address] Mary Moore FNP Care Coordination (CM/CHW appt) 03/23/2024 Patient Outreach [facility] [address] [place] [address] Mary Moore SOLO [employer]ICIAN Care Coordination (CM/CHW appt reminder) 03/19/2024 Patient Outreach [facility] [address] [place] [address] Mary Moore FNP Care Coordination (CM/CHW outreach) 03/19/2024 Telephone [facility] [address] [place] [phone] Kevin Quintero RN Care Management (C3CM- chart review) 03/17/2024 11:15 AM EST Office Visit [address] [address] Mary Moore FNP Generalized anxiety disorder (Primary Dx); Healthcare maintenance; Encounter for screening mammogram for malignant neoplasm of breast; Discogenic lumbar pain; Sleep difficulties 03/17/2024 Travel 03/17/2024 Telephone [facility] [address] [place] [address] Nishant Quiros MA Chart Prep from Last [...] Mass Index 31.02 05/12/2024 11:03 AM EDT Plan of Treatment Upcoming Encounters Date Type Department Care Team (Late st Contact Info) Description 08/25/2024 11:15 AM EDT Office Visit [facility] [address] [place] [address] Mary Moore, [employer]O [employer]ICIAN [address] [place] [address] Health Maintenance Due Date Last Done Comments [...] Family Planning (PISQ) 04/01/2025 04/01/2024 Tobacco Screening 05/12/2025 05/12/2024 Pap Smear 04/01/2027 04/01/2024, 01/04/2021, 01/04/2021 Cervical Cancer Screening 04/01/2029 HPV/Cotest 04/01/2029 04/01/2024, 01/04/2021 Lipid Panel 04/30/2029 04/30/2024, 07/08/2022, 12/29/2020 Zoster Vaccines (1 of 2) [...] Procedure Name Priority Date/Time Associated Diagnosis Comments US PELVIS TRANSVAGINAL Urgent 05/13/2024 1:32 PM EDT Menorrhagia with regular cycle ECG 12-LEAD Routine 04/30/2024 12:33 PM EST Chest wall pain DRUG MONITOR, PANEL 1, SCREEN, URINE Routine 04/30/2024 11:28 AM EST Generalized anxiety disorder LIPID PANEL, STANDARD Routine 04/30/2024 11:28 AM EST Dyslipidemia TSH W/REFLEX TO FT4 Routine 04/30/2024 1 1:28 AM EST Menorrhagia with regular cycle CBC Routine 04/30/2024 11:28 AM EST Menorrhagia with regular cycle XR RIBS 3 VIEWS LEFT W CHEST Routine 04/30/2024 11:05 AM EST AMB REFERRAL TO [facility] Urgent 04/30/2024 10:42 AM EST Atypical squamous cell changes of undetermined significance (ASCUS) on cervical cytology with positive 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 virus (HPV) PAP SMEAR Routine 04/01/2024 11:10 AM EST LGSIL on Pap smear of cervix HPV DNA, LOW/HIGH RISK Routine 04/01/2024 11:10 AM EST ZZZ HISTORICAL HEPATITIS C AB W/REFL TO HCV RNA, QN, PCR Routine 12/29/2020 4:34 PM EDT HIV 1/2 ANTIGEN/ANTIBODY, FOURTH GENERATION W/RFL Routine 12/29/2020 4:34 PM EDT COLPOSCOPY Routine 06/01/2020 12:00 AM EDT BI MAMMOGRAM DIAGNOSTIC BILATERAL Routine 05/17/2019 2:02 PM EDT from Last 3 Months or Most Recently Relevant to Health Maintenance Results * US Pelvis Transvaginal (05/13/2024 1:32 PM EDT) Anatomical Region Laterality Modality Pelvis Ultrasound 05/13/2024 1:32 PM EDT Narrative 05/13/2024 2:35 PM EDT ? [facility] ?[address] ?[place] [address] ? Ultrasound Report ? Signed ? Patient: Gabi Wilks ?MR#: [id number] ?? [id number] ? : 1980 ?Acct:[id number] ? Age/Sex: 43 / F ?ADM Date: 05/13/24 ? Loc: HO.US ? Attending Dr: Malcolm Alvarez CNM ? Ordering Physician: MALCOLM ALVAREZ CNM ?? Date of Service: 05/13/24 ?? Procedure(s): US pelvic and transvaginal ?? Accession Number(s): [id number] ? cc: MALCOLM ALVAREZ CNM ? EXAMINATION: ? US PELVIS ? CLINICAL INFORMATION: ? Menorrhagia. ? COMPARISON: ?? None available. ? TECHNIQUE: ?? Ultrasound of the pelvis is performed using both transabdominal and ?? transvaginal transducers along with Doppler. Transvaginal imaging is ?? performed due to inadequate visualization transabdominally. ? FINDINGS: ?? Uterus: ?? The uterus is anteverted and measures 10.9 x 5.9 x 6.8 cm. ??There are ?? nabothian cysts within an otherwise normal-appearing cervix. ? The double wall endometrial thickness is 14 mm. ??It is uniform. ? The uterus is smooth in contour and has normal myometrial echogenicity. ?There is a solitary left fundal fibroid, submucosal, measuring 2.2 x ?? 2.0 x 2.4 cm. ? Adnexa: ?? Both ovaries are visualized. There is normal color flow to the adnexa. ?? There is no ovarian torsion. ??There is trace simple pelvic ascites, ?? likely physiologic. There are no adnexal masses. ? Right ovary measures 3.9 x 1.8 x 1.8 cm. Volume = 6.6 mL. Normal ?? sonographic appearance. ? Left ovary measures 3.6 x 1.8 x 2.2 cm. Volume = 7.5 mL. Normal ?? sonographic appearance. ? US/US pelvic and transvaginal ?? IMPRESSION: ?? 1. Normal thickness endometrium measuring 14 mm. ?? 2. There is a submucosal fundal fibroid tumor to the left of midline ?? measuring 2.2 x 2.0 x 2.4 cm. ?? 3. Normal ovaries bilaterally. ?? 4. Trace anechoic free fluid, likely physiologic. ? Electronically signed by: ??Magan Artis MD ??05/13/2024 02:32 PM EDT RP ?? Workstation: [id number] ? Dictated By: ?Magan Artis MD ? Signed By: ?<Electronically signed by Magan Artis MD in OV> ?05/13/24 1432 ? DD/ 1332 ? TD/TT: 05/13/24 1351 ? Coil Former: ? Procedure Note Morris Jarquin - 05/13/[address] [address] Ultrasound Report Signed Patient: Gabi WilksMR#: [id number] : 1980Acct:[id number] Age/Sex: 43 / FADM Date: 05/13/24 Loc: HO.US Attending Dr: Malcolm Alvarez CNM Ordering Physician: MALCOLM ALVAREZ CNM Date of Service: 05/13/24 Procedure(s): US pelvic and transvaginal Accession Number(s): [id number] cc: MALCOLM ALVAREZ CNM EXAMINATION: US PELVIS CLINICAL INFORMATION: Menorrhagia. COMPARISON: None available. TECHNIQUE: Ultrasound of the pelvis is performed using both transabdominal and transvaginal transducers along with Doppler. Transvaginal imaging is performed due to inadequate visualization transabdominally. FINDINGS: Uterus: The uterus is anteverted and measures 10.9 x 5.9 x 6.8 cm. There are nabothian cysts within an otherwise normal-appearing cervix. The double wall endometrial thickness is 14 mm. It is uniform. The uterus is smooth in contour and has normal myometrial echogenicity. There is a solitary left fundal fibroid, submucosal, measuring 2.2 x 2.0 x 2.4 cm. Adnexa: Both ovaries are visualized. There is normal color flow to the adnexa. There is no ovarian torsion. There is trace simple pelvic ascites, likely physiologic. There are no adnexal masses. Right ovary measures 3.9 x 1.8 x 1.8 cm. Volume = 6.6 mL. Normal sonographic appearance. Left ovary measures 3.6 x 1.8 x 2.2 cm. Volume = 7.5 mL. Normal sonographic appearance. US/US pelvic and transvaginal IMPRESSION: 1. Normal thickness endometrium measuring 14 mm. 2. There is a submucosal fundal fibroid tumor to the left of midline measuring 2.2 x 2.0 x 2.4 cm. 3. Normal ovaries bilaterally. 4. Trace anechoic free fluid, likely physiologic. Electronically signed by: Magan Artis MD 05/13/2024 02:32 PM EDT Dictated By: Magan Artis MD Signed By: <Electronically signed by Magan Artis MD in OV> 05/13/24 1432 DD/ 1332 TD/TT: 05/13/24 1351 Coil Former: Malcolm Alvarez CNM IM US PROCEDURES Edited Result - Final * ECG 12 lead (04/30/2024 12:33 PM EST) 04/30/2024 10:4 2 AM EST Narrative Johnson Kaplan MD - 04/30/2024 12:33 PM EST NSR 67, no arrhythmia, no ST-T changes, no Q waes us Johnson Kaplan MD ECG ORDERABLES Edited Result - Final * TSH W/Reflex to FT4 (04/30/2024 11:28 AM EST) TSH reflex Free T4 0.71 0.32 - 4.0 uIU/mL [facility] Blood Venous blood specimen / Unknown 04/30/2024 11:28 AM EST 04/30/2024 1:24 PM EST us Malcolm Alvarez [facility] LAB BLOOD ORDERABLES Lottie ledezma Result [facility] [address] [place] [phone] * (ABNORMAL) Drug Monitoring, Panel 1, Screen, Urine (04/30/2024 11:28 AM EST) Opiate Screen Urine Not Detected Not Detect [facility] Comment:Opiate cut-off is 30 0 ng/mL.Positive results are unconfirmed and should not be used fornon-medical purposes. Barbiturates, Urine Not Detected Not Detect [facility] Comment:Barbiturate cut-off is 200 ng/mL.Positive results are unconfirmed and should not be used fornon-medical purposes. Phencyclidine Screen Urine Not Detected Not Detect [facility] Comment:Phencyclidine cut-of f is 25 ng/mL.Positive results are unconfirmed and should not be used fornon-medical purposes. Amphetamine Screen Urine Not Detected Not Detect [facility] Comment:Amphetamine cut-off is 1000 ng/mL.Positive results are unconfirmed and should not be used fornon-medical purposes. Benzodiazepines Screen Urine Not Detected Not Detect [facility] Comment:Benzodiazepine cut-o ff is 200 ng/mL.Positive results are unconfirmed and should not be used fornon-medical purposes. Cocaine Screen Urine Not Detected Not Detect [facility] Comment:Cocaine cut-off is 3 00 ng/mL.Positive results are unconfirmed and should not be used fornon-medical purposes. Cannabinoid Screen Urine POSITIVE(A) Not Detect [facility] Comment:Cannabinoid cut-off is 50 ng/mL.Positive results are unconfirmed and should not be used fornon-medical purposes. Methadone Screen, Urine Not Detected Not Detect ng/mL [facility] Comment:Methadone cut-off is 300 ng/mL.Positive results are unconfirmed and should not be used fornon-medical purposes. FENTANYL URINE Not Detected Not Detect [facility] Comment:Fentanyl cut-off is 1 ng/mL.Positive results are unconfirmed and should not be used fornon-medical purposes. Oxycodone Urine Screen Not Detected Not Detect ng/mL [facility] Comment:Oxycodone cut-off is 100 ng/mL.Positive results are unconfirmed and should not be used fornon-medical purposes. Buprenorphine Screen Not Detected Not Detect ng/mL [facility] Comment:Buprenorphine cut-of f is 5 ng/mL.Positive results are unconfirmed and should not be used fornon-medical purposes. Urine (Urine, Random) 04/30/2024 11:28 AM EST 04/30/2024 1:14 PM EST [facility]INE ORDERABLES Final Re sult [facility] [address] [place] [phone] * (ABNORMAL) CBC (04/30/2024 11:28 AM EST) White Blood Count 8.0 4.8 - 10.8 X10*3/uL [facility] Red Blood Count 5.07 4.20 - 5.50 X10*6/uL [facility] Hemoglobin 10.1(L) 12.0 - 16.0 g/dl [facility] Hematocrit 34.7(L) 37.0 - 47.0 % [facility] Mean Corpuscular Volume 68.4(L) 80.0 - 98.0 fL [facility] Mean Corpuscular Hemoglobin 19.9(L) 27.0 - 33.0 pg [facility] Mean Corpuscular HGB Conc 29.1(L) 31.0 - 35.0 g/dl [facility] Red Cell Distribution Width 20.1(H) 11.0 - 16.0 % [facility] Platelet Count 448(H) 160 - 400 X10*3/uL [facility] Mean Platelet Volume 9.8 9.4 - 12.3 fL [facility] NRBC Pct Auto 0.0 0.0 - 0.2 /100WBC [facility] NRBC Abs Auto 0.000 0.0 - 0.012 X10*3/uL [facility] Blood Venous blood specimen / Unknown 04/30/2024 11:28 AM EST 04/30/2024 1:14 PM EST us Malcolm Alvarez [facility] LAB BLOOD ORDERABLES Lottie l Result [facility] [address] [place] [phone] * (ABNORMAL) Lipid Panel, Standard (04/30/2024 11:28 AM EST) Triglycerides 89 <150 mg/dL [facility] Comment:Desirable Triglyceri de: less than 150 mg/dLBorderline High Triglyceride 150-199 mg/dLHigh Triglyceride: 200-499 mg/dLVery High Triglyceride: greater than or equal to 5OO mg/dL Cholesterol 246(H) <200 mg/dL [facility] Comment:Desirable Cholestero l: less than 200 mg/dLBorderline High Cholesterol: 200-239 mg/dLHigh Cholesterol: greater than 239 mg/dL LDL Cholesterol Calculated 181(H) <100 mg/dL [facility] Comment:Desirable LDL: less than 100 mg/dLNear Optimal/Above Optimal LDL: 110- 129 mg/dLBorderline High LDL: 130-159 mg/dLHigh LDL: 160-189 mg/dLVery High LDL: greater than or equal to 190 mg/dL HDL Cholesterol 48 >40 mg/dL [facility] Comment:Desirable HDL: great er than 40 mg/dL Note: This HDL assay may give artificially low results in patients with liver disease. Blood Venous blood specimen / Unknown 04/30/2024 11:28 AM EST 04/30/2024 1:24 PM EST us Malcolm Alvarez CNM LAB BLOOD ORDERABLES Lottie l Result [facility] [address] [place] [phone] * XR Ribs 3 Views Left w/ Chest (04/30/2024 11:05 AM EST) Anatomical Region Laterality Modality Radiographic Vianey ging 04/30/2024 11:0 5 AM EST Narrative 04/30/2024 12:12 PM EST ?[facility] ?[address] ?[place] [address] ?XRay Report ? Signed ? Patient: Gabi Wilks ?MR#: [id number] ?? [id number] ? : 1980 ?Acct:[id number] ? Age/Sex: 43 / F ?ADM Date: 04/30/24 ? Loc: HO.HHCX ? Attending Dr: Johnson Kaplan MD ? Ordering Physician: Johnson Kaplan MD ?? Date of Service: 04/30/24 ?? Procedure(s): XR ribs LT min 3V w CXR1V ?? Accession Number(s): [id number] ? cc: Johnson Kaplan MD ? EXAMINATION: [...] DD/ 1105 ? TD/TT: 04/30/24 1204 ? Coil Former: ? Procedure Note Donotuseinterpreter, Image - 04/30/2024 [facility] [address] [place] [address] XRay Report Signed Patient: Gabi WilksMR#: [id number] : 1980Acct:[id number] Age/Sex: 43 / FADM Date: 04/30/24 Loc: HO.HHCX Attending Dr: Johnson Kaplan MD Ordering Physician: Johnson Kaplan MD Date of Service: 04/30/24 Procedure(s): XR ribs LT min 3V w CXR1V Accession Number(s): [id number] cc: Johnson Kaplan MD EXAMINATION: XR RIBS, [...] 04/30/24 1209 DD/ 1105 TD/TT: 04/30/24 1204 Coil Former: Johnson Kaplan MD IMG XR PROCEDURES Final Result * Referral to Obstetrics / Gynecology (04/30/2024 10:42 AM EST) 04/30/2024 10:4 2 AM EST Malcolm Alvarez [facility] OUTPATIENT REFERRAL ORDER ANÍBAL Final Result * (ABNORMAL) HPV DNA, Low/High Risk (04/01/2024 11:10 AM EST) HPV High Risk Positive(A) Negative [facility] HPV Genotype 16 Positive(A) Negative [facility] HPV Genotype 18 Negative Negative [facility] Comment:HPV testing performe d at [facility] (CLIA#[id number]), [address] [place] [address].Testing for HPV was performed using the nap- Naturally Attached Parents MISTI MDSave0system. The presence of HPV in the female [...] Machuca MD LAB BLOOD ORDERABLES Final Result [facility] [address] [place] [phone] * Pap Smear (04/01/2024 11:10 AM EST) Swab Cervix uteri structure / Unknown 04/01/2024 11:10 AM EST 04/02/2024 6:30 AM EST Narrative [facility] - 04/14/2024 6:07 PM EST ----- ------- Name: Gabi Wilks ? Age/Sex: 43/F ? : 1980 Unit#: [id number] ?? Attend Dr: MALCOLM ALVAREZ CNM ?Re04/01/24 ?Status: DEP REF ? Location: [facility] ? Disch: ? ----- ------- SPEC : [id number] ? RECD: 04/02/24-629 ? STATUS: ??SOUT ? REQ NUM: [id number] ? ROBEL: 04/01/24-1110 ? SUBM DR: MALCOLM [...] ? END OF REPORT ? us Malcolm Castroardini CN LAB CYTOLOGY ORDERABLES F inal Result [facility] [address] [place] [address] [phone] * HEPATITIS C AB W/REFL TO HCV RNA, QN, PCR (12/29/2020 4:34 PM EDT) HEPATITIS C ANTIBODY NON-REACT JEREMY NON-REACT JEREMY [facility] INDEX 0.02 <1.00 [facility] Comment: ?? HCV antibody was non-reactive. There is no laboratory ?? evidence of HCV infection. ?? In most cases, no further action is required. However, if recent HCV exposure is suspected, a test for HCV RNA (test code 90750) is suggested. ?? For additional information please refer to http://[employer]/faq/XPH74m5 (This link is being provided for informational/ educational purposes only.) ?? 12/29/2020 4:34 PM EDT Mary Moore SOLO MUSICIAN HISTORICAL/NON ORDERABLE LABS Final Result [facility] [address] * HIV 1/2 ANTIGEN/ANTIBODY,FOURTH GENERATION W/RFL (12/29/2020 4:34 PM EDT) HIV-1/2 ANTIGEN AND ANTIBODIES, 4TH GENERATION W/ REFLEX NON-REACT JEREMY NON-REACT JEREMY [facility] Comment: HIV-1 antigen and HIV-1/HIV-2 [...] ? For additional information please refer to http://education.[employer]/faq/HDU154 (This link is being provided for informational/ educational purposes only.) ? The performance of this assay has not been clinically validated in patients less than 2 years old. ?? 12/29/2020 4:34 PM EDT us Mary Moore SOLO MUSICIAN LAB BLOOD ORDERABLES Final Res ult [facility] [address] * Colposcopy (06/01/2020 12:00 AM EDT) Historical Provider IN CLINIC/BEDSIDE ORDERAB LES Final Result Performing Organization Address [facility] Co de Phone Number [facility] [address] [place] [address] [phone] * 3D BILATERAL DIAGN MAMMO 1 [...] Recently Relevant to Health Maintenance Insurance #1 [place] [address] [facility] C3 HSN FULL . #1 [place] [address] . [address] [place] [address] . #1 [place] [address] Care Teams Insights Analyst Relationship Specialty Start Date End Date Mary Moore FNP [address] [place] [address] PCP - General Family Medicine 12/25/20 Kevin Quintero RN [address] [place] [address] Animal SurgeonManager Customs 04/05/24
--- OUTSIDE RECORDS SUMMARY | 2024-05-13 15:52 | XMS_ITS | Encounter Summary ---
Author Organization [employer] Address [address] [place] [address] 7 [place] [address] Care Team Providers Care Line Production Cook Name Role Phone Mary Moore Primary Care Provider [phone] Kevin Quintero RN Unavailable [phone] Encounter Details Date Type Department Care Team (Late Contact Info) Description 07/05/2022 Abstract [facility] [address] [place] [address] Mary Moore FNP [address] [place] [address] Social History Tobacco Use Types Packs/Day Years [...] Department Care Team (Late Contact Info) Description 08/25/2024 11:15 AM EDT Office Visit [facility] [address] [place] [address] Mary Moore FNP [address] [place], [place] [phone] documented as of this encounter Visit Diagnoses Not on filedocumented in this encounter Care Teams Line Production Cook Relationship Specialty Start Date End Date Mary Moore FNP [address] [place] [address] PCP - General Family Medicine 12/25/20 Kevin Quintero RN [address] [place] [address] Community Service WorkerLasting Machine Operator Hand Method 04/05/24 documented as of this encounter
== END 2024-05-13 12:37 | disposition home or self-care (01) ==
LOC: HO.US 12:36
PROVIDERS: Visit Provider Advanced Practice Midwife
DX: N92.0 Excessive and frequent menstruation with regular cycle (principal)
CPT/HCPCS: 76830; 76856

== ENCOUNTER → 2024-05-13 12:37 | Outpatient (BNV) | payer MEDICAID, SELFPAY | PROVIDERS: Visit Provider Radiology Diagnostic Radiology | DX: N92.0 Excessive and frequent menstruation with regular cycle (principal) | CPT/HCPCS: 76830; 76856 ==

== ENCOUNTER 2024-05-24 10:20 | Outpatient (RCR) | payer MEDICAID, SELFPAY | END 2024-06-18 09:00 | disposition home or self-care (01) | LOC: HO.PT 10:20 | PROVIDERS: PCP Registered Nurse; Visit Provider Registered Nurse | DX: M54.50 Low back pain, unspecified (principal) | CPT/HCPCS: 97110; 97140; 97162 ==

== ENCOUNTER 2025-01-26 11:49 | Outpatient (REF) | payer MEDICAID, SELFPAY ==
--- OUTSIDE RECORDS SUMMARY | 2025-01-26 11:15 | XMS_ITS | Encounter Summary ---
Author Organization [employer] Address [address] [place] [address] 7 [place] [address] Care Team Providers Care Washery Engineer Name Role Phone Mary Moore Primary Care Provider [phone] Reason for Visit * Reason Comments Follow-up Encounter Details Date Type Department Care Team ([facility] Contact Info) Description 01/26/2025 11:15 AM EST Office Visit [facility] MED[facility]INE [address] [place] [address] Mary Moore FNP [address] [place] [address] Urinary urgency (Primary Dx) Social History Tobacco Use Types Packs/Day Years Used Date Smoking Tobacco: Every Day Cigarettes Passive Smoke Exposure: Current Smokeless Tobacco: Never Comments:1/2 a pack if stres sed. Alcohol Use Standard Drinks/Week Comments Never 0 (1 standard drink = 0.6 oz pur e alcohol) Depression Answer Date Recorded Patient Health Questionnaire-9 Score 14 09/21/2024 Patient Health Questionnaire-9 Score 14 09/21/2024 Last PHQ-9: Questionnaire Data Not on file 0 09/21/2024 Housing Stability Answer Date Recorded What is [...] Answer Date Recorded Patient Health Questionnaire-2 Score 5 09/21/2024 Internet Access Answer Date Recorded Internet Access Q1 Yes 09/05/2024 Internet Access Q2 Not on file 09/05/2024 Comments No Sex and Gender Information Value Date Recorded Sex Assigned at Female 12/31/2021 10:17 AM EDT Legal Sex Female 10:17 AM EDT Gender Identity Female 12/31/2021 10:17 AM EDT Sexual Orientation Straight 12/31/2021 10 :17 AM EDT documented as of this encounter Last Filed Vital Signs Vital Sign Reading Time Taken Comments Blood Pressure 124/82 01/26/2025 10:59 AM EST Pulse 96 01/26/2025 10:59 AM EST Temperature 37.2 C (98.9 F) 01/26/2025 10:59 AM EST Respiratory Rate 20 01/26/2025 10:59 AM EST Oxygen Saturation 98% 01/26/2025 10:59 AM EST Inhaled Oxygen Concentration - - Weight 88.3 kg (194 lb 9.6 oz) 01/26/2025 10:59 AM EST Height 172.7 cm (5' 8 ) 01/26/2025 10:59 AM EST Body Mass Index 29.59 01/26/2025 10:59 AM EST documented in this encounter Plan of Treatment Upcoming Encounters Date Type Department Care Team (Late st Contact Info) Description 04/27/2025 11:15 AM EST Office Visit [facility] [address] [place] [address] Mary Moore FNP [address] [place] [address] Scheduled Orders Name Type Priority Associated Diagnoses Orde r Schedule Comprehensive Metabolic Panel Lab Routine Urinary urgency Expected: 01/26/2025 (Approximate), Expires: 01/26/2026 documented as of this encounter Procedures Procedure Name Priority Date/Time Associated Diagnosis Comments URINALYSIS, COMPLETE, WITH REFLEX TO CULTURE Routine 01/26/2025 12:00 PM EST Urinary urgency HEMOGLOBIN A1C Routine 01/26/2025 12:00 PM EST Urinary urgency documented in this encounter Results * (ABNORMAL) Urinalysis, Complete, with Reflex to Culture (01/26/2025 12:00 PM EST) Color Urine Dark Yellow [facility] Appearance Urine Clear [facility] PH 6.0 5.0 - 9.0 [facility] Glucose Urine UA Negative Negative mg/dL [facility] Urine Blood Negative Negative [facility] Specific [place] - Urine >=1.030(H) 1.005 - 1.025 [facility] Urine Protein Trace Neg-Trace mg/dL [facility] Urine Ketones Trace Negative mg/dL [facility] Nitrite Urine Negative Negative [facility] Leukocyte Esterase Urine Negative Negative [facility] RBC Urine 0-2 0 - 2 /HPF [facility] Urine WBC 0-5 0 - 5 /HPF [facility] Urine Squamous Epithelial Cell 3-5 0 - 2 /HPF [facility] Urine Bacteria None Seen None Seen [facility] Hyaline Casts, Urine 0-2 0 - 2 /LPF [facility] Urine 01/26/2025 12:0 0 PM EST 01/26/2025 1:15 PM EST Narrative [facility] - 01/26/2025 2:09 PM EST Urine, Clean Catch us Mary Moore [facility] URINE ORDERABLES Final Res ult [facility] [address] [place] [address] [phone] * Hemoglobin A1c (01/26/2025 12:00 PM EST) Hemoglobin A1c 5.7 <6.0 % [facility] Comment:Hemoglobin A1C Refer ence Range Adults: 4.8 - 6.0 % Non diabetic: < 6.0 % Goal: < 7.0 %Additional Action Suggested: > 8.0 %Note: Hemoglobin A1c results are invalid for patients with abnormal amounts of HbF. Blood transfusions may impact the HbA1c concentration in the patient sample. Estimated Average Glucose 117 mg/dL [facility] Comment:eAG = Estimated ave rage glucose which is %A1C expressed asaverage glucose, using the formula of the [id number] Glucose study (ADAG), Diabetes Care, Vol.31,#8,2007 Blood Venous blood specimen / Unknown 01/26/2025 12:00 PM EST 01/26/2025 1:09 PM EST us Mary GOTTI LAB BLOOD ORDERABLES Final Res ult [facility] [address] [place] [address] [phone] documented in this encounter Visit Diagnoses Diagnosis Urinary urgency- Primary Urgency of urination documented in this encounter Additional Health Concerns Assessment Noted Time PHQ-9 Depression Total Score: 14 025 11:03 AM EDT documented as of this encounter Care Teams Washery Engineer Relationship Specialty Start Date End Date Mary Moore FNP [address] [place] [address] PCP - General Family Medicine 12/25/20 documented as of this encounter
[2025-01-26 14:01] LABS: Appearance Urine Clear; Glucose Urine UA Negative (Negative); PH 6.0 (5.0-9.0); Specific Gravity - Urine >= 1.030 (1.005-1.025)
--- OUTSIDE RECORDS SUMMARY | 2025-01-26 14:59 | XMS_ITS | Encounter Summary ---
Author Organization [employer] Address [address] [place] [address] 7 [place] [address] Care Team Providers Care Packer Name Role Phone Mary Moore Primary Care Provider [phone] Kevin Quintero RN Unavailable [phone] Reason for Visit * Reason Onset Date Comments Triage 05/01/2022 Encounter Details Date Type Department Care Team ([facility] st Contact Info) Description 05/01/2022 Telephone [facility] [address] [place] [address] Mary Moore FNP [address] [place], [place] [phone] Triage Social History Tobacco Use Types Packs/Day [...] accepted this outcome Please contact pt at [phone] documented in this encounter Plan of Treatment Upcoming Encounters Date Type Department Care Team (Late st Contact Info) Description 04/27/2025 11:15 AM EST Office Visit [facility] [address] [place] [address] Mary Moore FNP [address] [place] [address] documented as of this encounter Visit Diagnoses Not on filedocumented in this encounter Care Teams Packer Relationship Specialty Start Date End Date Mary Moore FNP [address] [place] [address] PCP - General Family Medicine 12/25/20 Kevin Quintero RN [address] [place] [address] RENUKA Wilhelm [address] Business Development InternHospice Home Care Coordinator 04/05/24 06/30/24 documented as of this encounter
--- OUTSIDE RECORDS SUMMARY | 2025-01-26 14:59 | XMS_ITS | Encounter Summary ---
Author Organization [employer] Address [address] [place] [address] [address]t [place] [address] Care Team Providers Care Global Account Manager Name Role Phone Mary Moore Primary Care Provider [phone] Reason for Visit * Reason Comments Med Refill Encounter Details Date Type Department Care Team ([facility] st Contact Info) Description 09/14/2024 Refill [facility] [address] [place] [address] Mary Moore FNP [address] [place] [address] Sleep difficulties Social History Tobacco Use Types Packs/Day Years Used Date Smoking Tobacco: Every Day Cigarettes Passive Smoke Exposure: Current Smokeless Tobacco: Never Comments:1/2 a pack if stres sed. Alcohol Use Standard Drinks/Week Comments Never 0 (1 standard drink = 0.6 oz pur e alcohol) Depression Answer Date Recorded Patient Health Questionnaire-9 Score 0 08/25/2024 Patient Health Questionnaire-9 Score 0 08/25/2024 Last PHQ-9: Questionnaire Data Not on file 0 08/25/2024 Housing Stability Answer Date Recorded What is [...] Answer Date Recorded Patient Health Questionnaire-2 Score 0 08/25/2024 Internet Access Answer Date Recorded Internet Access [...] Description 04/27/2025 11:15 AM EST Office Visit [facility] [address] [place] [address] Mary Moore FNP [address] [place] [address] documented as of this encounter Visit Diagnoses Diagnosis Sleep difficulties documented in this encounter Additional Health Concerns Assessment Noted Time PHQ-9 Depression Total Score: 0 08/26/19 25 11:21 AM EDT documented as of this encounter Care Teams Global Account Manager Relationship Specialty Start Date End Date Mary Moore FNP [address] [place] [address] PCP - General Family Medicine 12/25/20 documented as of this encounter
--- OUTSIDE RECORDS SUMMARY | 2025-01-26 14:59 | XMS_ITS | Encounter Summary ---
Author Organization [employer] Address [address] [place] [address] 7 [place] [address] Care Team Providers Care Tool Salvage Worker Name Role Phone Mary Moore Primary Care Provider Reason for Visit * Reason Onset Date Comments chart prep 01/25/2025 Encounter Details Date Type Department Care Team ([facility] st Contact Info) Description 01/25/[address] [facility] [address] [place] [address] Mary Moore FNP [address] [place] [address] chart prep Social History Tobacco Use Types Packs/Day Years [...] encounter Miscellaneous Notes * Telephone Encounter - Ghada Law [place] - 01/25/2025 2:30 PM EST Chart Prep Labs: done Images: not done Screenings: Mammogram Vaccines due: Covid Due, Hep B Due, PCV20 Due, Flu Due, and HPV Referrals: Completed Overdue care gaps: Sbirt documented in this encounter Plan of Treatment Upcoming Encounters Date Type Department Care Team (Late st Contact Info) Description 04/27/2025 11:15 AM EST Office Visit [facility] [address] [place] [address] aMry Moore FNP [address] [place] [address] documented as of this encounter Visit Diagnoses Not on filedocumented in this encounter Additional Health Concerns Assessment Noted Time PHQ-9 Depression Total Score: 14 025 11:03 AM EDT documented as of this encounter Care Teams Tool Salvage Worker Relationship Specialty Start Date End Date Mary Moore FNP [address] [place] [address] PCP - General Family Medicine 12/25/20 documented as of this encounter
--- OUTSIDE RECORDS SUMMARY | 2025-01-26 14:59 | XMS_ITS | Encounter Summary ---
Author Organization [employer] Address [address] [facility] 7t [place] [address] Care Team Providers Care Assessment Manager Name Role Phone Mary Moore SHEN Primary Care Provider [phone] Encounter Details Date Type Department Care Team (Latest Contact Info) Description 01/26/2025 Travel Social History Tobacco Use Types Packs/Day [...] Description 04/27/2025 11:15 AM EST Office Visit [facility] [address] [place] [address] Mary Moore FNP [address] [place] [address] documented as of this encounter Visit Diagnoses Not on filedocumented in this encounter Additional Health Concerns Assessment Noted Time PHQ-9 Depression Total Score: 14 025 11:03 AM EDT documented as of this encounter Care Teams Assessment Manager Relationship Specialty Start Date End Date Mary Moore FNP [address] [place] [address] PCP - General Family Medicine 12/25/20 documented as of this encounter
--- OUTSIDE RECORDS SUMMARY | 2025-01-26 15:00 | XMS_ITS | Encounter Summary ---
Author Organization [employer] Address [address] [place] [address] 7t [place] [address] Care Team Providers Care Test Engineering Intern Name Role Phone Mary Moore Primary Care Provider [phone] Kevin Quintero RN Unavailable [phone] Encounter Details Date Type Department Care Team (Late st Contact Info) Description 07/05/2022 Abstract [facility] [address] [place] [address] Mary Moore FNP [address] [place] [address] Social History Tobacco Use Types Packs/Day Years [...] PM EDT documented as of this encounter Functional Status * Over the past 2 weeks, how often have you been bothered by any of the following problems? Question Answer Date of Assessment Author Patient Health Questionnaire-2 Score 0 0 10/2022 1:32 PM EDT Tyson Luther MA * Over the past 2 weeks, how often have you been bothered by any of the following problems? Question Answer Date of Assessment Author Little interest or pleasure in doing things Not at all 07/08/2022 1:32 PM Tyson Gerard M A Feeling down, depressed, or hopeless Not at all 07/08/2022 1:32 PM Tyson Gerard M A Trouble falling or staying asleep, or sleeping too much Not at all 07/08/2022 1:32 PM Tyson Gerard MA Feeling tired or having nazia le energy Not at all 07/08/2022 1:32 PM Tyson Gerard M A Poor appetite or overeating Not at all 07/08/2022 1: 32 PM Tyson Gerard MA Feeling bad about yourself - or that you are a failure or have let yourself or your family down Not at all 07/08/2022 1:32 PM Tyson Kelley ra, [place] Trouble concentrating on thi ngs, such as reading the newspaper or watching television Not at all 07/08/2022 1:32 PM Tyson Gerard M A Moving or speaking so slowly that other people could have noticed? Or the opposite - being so fidgety or restless that you have been moving around a lot more than usual. Not at all 07/08/2022 1:32 PM Tyson Gerard M A Thoughts that you would be better off or hurting yourself in some way Not at all 07/08/2022 1:32 PM Tyson Gerard MA Patient Health Questionnaire -9 Score 0 07/08/2022 1:32 PM Tyson Gerard M A documented as of this encounter Plan of Treatment Upcoming Encounters Date Type Department Care Team (Late st Contact Info) Description 04/27/2025 11:15 AM EST Office Visit [facility] [address] [place] [address] Mary Moore FNP [address] [place] [address] documented as of this encounter Visit Diagnoses Not on filedocumented in this encounter Care Teams Test Engineering Intern Relationship Specialty Start Date End Date Mary Moore FNP [address] [place] [address] PCP - General Family Medicine 12/25/20 Kevin Quintero RN [address] [place] [address] Inside Horticultural Specialty GrowerProperty Field Inspector 04/05/24 06/30/24 documented as of this encounter
--- OUTSIDE RECORDS SUMMARY | 2025-01-26 15:00 | XMS_ITS | Clinical Summary ---
Author Organization [employer] Address [address] [place] [address] [address] [place] [address] Care Team Providers Care Handbag Framer Name Role Phone Mary Moore SHEN Primary Care Provider [phone] Allergies No known active allergies Medications * [...] and replace cap. 16 g 5 4 Active ibuprofen 800 MG tabletIndications :Low back pain at multiple sites,Discogenic lumbar pain Take 1 tablet (800 mg) by mouth every 8 (eight) hours if needed (pain or fever). 100 tablet 3 4 Active lidocaine (Lidoderm) 5 % patch Apply 1 patch topically in the morning as needed for knee pain. Remove & discard patch within 12 hours or as directed by provider. 30 patch 11 4 Active Diclofenac Sodium 1 % gelIndications:Lo w back pain at multiple sites,Discogenic lumbar pain APPLY 1 APPLICATION TOPICALLY IF NEEDED IN THE MORNING, AT NOON, IN THE EVENING AND AT BEDTIME FOR PAIN 100 g 5 5 Active albuterol (ProAir HFA) 108 (90 Base) MCG/ACT inhalerIndication s:Moderate persistent asthma, uncomplicated Inhale 2 puffs every 4 (four) hours if needed for wheezing or shortness of breath. 18 g 3 5 026 Active Spacer/Aero-Holdi ng Chambers (AeroChamber MV) inhalerIndication s:Moderate persistent asthma, uncomplicated Use as instructed 1 each 2 5 026 Active Mometasone Furoate (Asmanex HFA) 200 MCG/ACT aerosolIndication s:Moderate persistent asthma without complication 1 puff inhalation BID 13 g 2 5 Active ferrous sulfate 325 (65 Fe) MG tablet TAKE ONE TABLET BY MOUTH EVERY OTHER DAY 30 tablet 1 5 Active QUEtiapine (SEROquel) 50 MG tabletIndications :Bipolar 1 disorder (CMS/HCC) ([facility]) Take 1 tablet (50 mg) by mouth at bedtime. 30 tablet 1 5 Active hydrOXYzine HCl (Atarax) 10 MG tabletIndications :Generalized anxiety disorder Take 1 tablet (10 mg) by mouth if needed in the morning and at bedtime for anxiety. 60 tablet 1 5 Active Magnesium 400 MG capsuleIndication s:Sleep difficulties Take 400 mg by mouth at bedtime. Take 60 minutes before bed. 90 capsule 3 5 026 Active melatonin 10 MG tabletIndications :Sleep difficulties Take 1 tablet (10 mg) by mouth at bedtime. 90 tablet 3 5 Active Active Problems Problem Noted Date Diagnosed Date Bipolar 1 disorder (CMS/HCC) 05/17/2024 Assessment & Plan (08/26/2024 8:38 AM EDT): Referral to team on 08/26/24: interested in establishing with female therapist Referral to team to assist with re-establishing with new psych med prescriber Current med regimen: Seroquel 50mg nightly Hydroxyzine 10mg PRN Sleep difficulties 05/13/2024 Assessment & Plan (08/26/2024 8:42 AM EDT): Continue magnesium 400 mg nightly Continue melatonin 10mg nightly PRN Well controlled with current regimen Assessment & Plan (05/13/2024 8:56 AM EDT): Continue magnesium 400 mg nightly Menorrhagia with regular cycle 04/01/2024 Marijuana use 03/19/2024 Healthcare maintenance 09/03/2023 Overview (08/26/2024): OPH: CEE 10/21/[address] [facility]. Due Oct 2024 Last PE: 09/03/23 Tdap: last 09/03/23 Routine Cancer Screening Mammo: Last available May 2019: BIRADS 3. Order placed 03/17/2024. Multiple NS. In agreement for US only (no mammo) on 08/25/24. Order placed. Pap: ASCUS, HR HPV positive on 04/01/24. Referred to [facility] for colposcopy. Previous: ASCUS HPV pos, neg 16/18 in 02/2020, followed by negative colposcopy 06/2020. Jan 2021 LSIL HPV pos. Colonoscopy: routine screening 45-75 years old per ACS Assessment & Plan (08/26/2024 8:36 AM EDT): Encouraged to contact [facility] regarding pain management options during colposcopy Assessment & Plan (09/04/2023 2:28 PM EDT): Due to acute concerns, time did not permit for discussion of routine cancer screenings. Plan for pt to return in 1 month to discuss routine health maintenance (mammo & pap due), as well as lab work. Severe episode of recurrent major depressive disorder, without psychotic features (CMS/HCC) 09/10/2022 Assessment & Plan (09/04/2023 2:42 PM EDT): Reports leading to significant impairments with locating employment and functioning in daily activities Denies active SI/HI/thoughts of self harm Referred for OP therapy ([facility]). Plan for initial appt within the next two weeks Consider discussion of pharmacotherapy at follow up Assessment & Plan (09/15/2022 9:03 PM EDT): Reports leading to significant impairments with locating employment and functioning in daily activities Denies SI/HI/thoughts of self harm BE completed in office, please see documentation for further details Referral for OP therapy placed Assessment & [...] out help PLAN: 1. Follow up with [facility]: Not recommended for follow-up 2. Patient goal [...] if interested in smoking cessation resources through [facility] Assessment & Plan (07/11/2022 4:36 PM EDT): Currently smoking up to 0.5 pack per day Previous trials of NRT and Varenicline Follow up if interested in smoking cessation resources through [facility] Discogenic lumbar pain 01/18/2021 Overview (05/13/2024): Specialists: previously referred to physiatry. They had recommended PT and to return if worsening for consideration of injection Continue with symptomatic relief measures such as warm bath/shower, APAP & ibuprofen PRN, stretching Referral to physical therapy placed 09/03/23, re-sent on 03/18/2024 As of May 2024, established with PT and noting improvement with sessions Assessment & Plan (08/26/2024 8:39 AM EDT): - clinical presentation suspicious for radicular symptoms. No red flag symptoms. Lumbar MRI ordered for further evaluation. Assessment & Plan (05/13/2024 8:53 AM EDT): Continue current plan Assessment & Plan (03/18/2024 9:49 AM EST): Referral to physical therapy, also scheduled for [facility] chronic pain group clinic Assessment & Plan (07/11/2022 4:32 PM EDT): Follow up as needed Generalized anxiety disorder 01/06/2021 Assessment & Plan (05/13/2024 8:55 AM EDT): BE completed March 2024, see documentation for further details BH: Weekly therapy sessions through [facility]: Discussed risks/benefits, she will consider. She is scheduled for visit with psych nurse practitioner Zach Dominique on 05/17/2024 Primary goal: Housing. Engaged with care management. Assessment & Plan (03/18/2024 9:52 AM EST): BE completed today, see documentation for further details BH: Weekly therapy sessions through [facility] Pharmac[facility]: Discussed risks/benefits, she will consider Primary goal: Housing. Referred to care management team for further assistance and support. Thyroid nodule 01/06/2021 Resolved Problems Problem Noted Date Diagnosed Date Resolved Date Costochondritis 09/02/2022 05/13/2024 Assessment & Plan (09/02/2022 10:05 AM EDT): -EKG unremarable. -Exam and history consitant with costochondritis. -Recomend rest, warm compresses, ibuprofen, and cyclobenzaprine for pain. Encounters Date Type Department Care Team Description 01/26/2025 11:15 AM EST Office Visit [address] [address] Mary Moore FNP Urinary urgency (Primary Dx) 01/26/2025 Travel 01/25/[address] [address] Mary Moore FNP chart prep 01/18/2025 Patient Outreach [address] [address] Mary Moore FNP Pre-visit Planning (SDSC screening was completed on 08/25/2024) 01/14/[address] [facility] [address] [place] [phone] Blanche Naqvi [place] 01/14/[address] [facility] [address] [place] [phone] Blanche Naqvi [place] 12/16/2024 Telephone [facility] [address] [place] [address] Mary Moore FNP Transition Of Care (Tcm) 12/13/2024 Telephone [facility] [address] [place] [address] Mary Moore FNP 12/13/2024 Telephone [facility] [address] [place] [address] Mary Moore FNP DME Request: Incont Supplies from Last 3 Months Immunizations Immunization Administration Dates Next Due Tdap 09/03/2023 Family [...] Passive Smoke Exposure: Current Smokeless Tobacco: Never Tobacco Cessation:Ready to Q [...] Mass Index 29.59 01/26/2025 10:59 AM EST Plan of Treatment Upcoming Encounters Date Type Department Care Team (Late st Contact Info) Description 04/27/2025 11:15 AM EST Office Visit [facility] [address] [place] [address] Mary Moore, FURNITURE [employer]ER [address] [place] [address] Health Maintenance Due Date Last Done Comments HPV Vaccines (1 - 3-dose series) 07/02/1995 Hepatitis B Vaccines (1 of 3 - 19+ 3-dose series) 07/02/1999 Pneumococcal Vaccine: Pediatrics (0 to 5 Years) and At-Risk Patients (6 to 49) Years (1 of 2 - PCV) 07/02/1999 Mammogram 05/16/2021 05/17/2019 Colposcopy 04/02/2024 06/01/2020 COVID-19 Vaccine (1 - 2024-2 6 season) 2024 Influenza Vaccine (#1) 2024 Depression Monitoring 03/24/2025 09/21/2024 , 09/21/2024 Cervical Cancer Screening 04/01/2025 Family Planning (PISQ) 04/01/2025 04/01/2024 HPV/Cotest 04/01/2025 04/01/2024, 01/04/2021 Pap Smear 04/01/2025 04/01/2024, 01/04/2021, 01/04/2021 Disability Screening 08/25/2025 08/25/2024 SDOH Screening 08/25/2025 08/25/2024 Alcohol/Substance Use Screening 01/26/2026 01/26/2025 Tobacco Screening 01/26/2026 01/26/2025 Lipid Panel 04/30/2029 04/30/2024, 07/08/2022, 12/29/2020 Zoster [...] patient's age to complete this topic Meningococcal B Vaccine Aged Out No l onger eligible based on patient's age to complete [...] Routine 01/26/2025 12:00 PM EST Urinary urgency LIPID PANEL, STANDARD Routine 04/30/2024 11:28 AM EST Dyslipidemia HPV DNA, LOW/HIGH RISK Routine 04/01/2024 11:10 AM EST PAP SMEAR Routine 04/01/2024 11:10 AM EST LGSIL on Pap smear of cervix ZZZ HISTORICAL HEPATITIS C AB W/REFL TO HCV RNA, QN, PCR Routine 12/29/2020 4:34 PM EDT HIV 1/2 ANTIGEN/ANTIBODY, FOURTH GENERATION W/RFL Routine 12/29/2020 4:34 PM EDT COLPOSCOPY Routine 06/01/2020 12:00 AM EDT BI MAMMOGRAM DIAGNOSTIC BILATERAL Routine 05/17/2019 2:02 PM EDT from Last 3 Months or Most Recently Relevant to Health Maintenance Results * (ABNORMAL) Urinalysis, Complete, with Reflex to Culture (01/26/2025 12:00 PM EST) Color Urine Dark Yellow [facility] Appearance Urine Clear [facility] PH 6.0 5.0 - 9.0 [facility] Glucose Urine UA Negative Negative mg/dL [facility] Urine Blood Negative Negative [facility] Specific Willis - Urine >=1.030(H) 1.005 - 1.025 [facility] Urine Protein Trace Neg-Trace mg/dL [facility] Urine Ketones Trace Negative mg/dL [facility] Nitrite Urine Negative Negative [facility] Leukocyte Esterase Urine Negative Negative [facility] RBC Urine 0-2 0 - 2 /HPF [facility] Urine WBC 0-5 0 - 5 /HPF [facility] Urine Squamous Epithelial Cell 3-5 0 - 2 /HPF [facility] Urine Bacteria None Seen None Seen [facility] Hyaline Casts, Urine 0-2 0 - 2 /LPF [facility] Urine 01/26/2025 12:0 0 PM EST 01/26/2025 1:15 PM EST Narrative [facility] - 01/26/2025 2:09 PM EST Urine, Clean Catch us Mary Moore FURNITURE [employer]ORER LAB URINE ORDERABLES Final Res ult [facility] [address] [place] [phone] * Hemoglobin A1c (01/26/2025 12:00 PM EST) Hemoglobin A1c 5.7 <6.0 % [facility] Comment:Hemoglobin A1C Refer ence Range Adults: 4.8 - 6.0 % Non diabetic: < 6.0 % Goal: < 7.0 %Additional Action Suggested: > 8.0 %Note: Hemoglobin A1c results are invalid for patients with abnormal amounts of HbF. Blood transfusions may impact the HbA1c concentration in the patient sample. Estimated Average Glucose 117 mg/dL [facility] Comment:eAG = Estimated ave rage glucose which is %A1C expressed asaverage glucose, using the formula of the R5C-XpflujwSanhqur Glucose study (ADAG), Diabetes Care, Vol.31,#8,Oct. 2007 Blood Venous blood specimen / Unknown 01/26/2025 12:00 PM EST 01/26/2025 1:09 PM EST us Mary Moore FURNITURE RESTORER LAB BLOOD ORDERABLES Final Res ult [facility] [address] [place] [address] [phone] * (ABNORMAL) Lipid Panel, Standard (04/30/2024 11:28 AM EST) Triglycerides 89 <150 mg/dL [facility] Comment:Desirable Triglyceri de: less than 150 mg/dLBorderline High Triglyceride 150-199 mg/dLHigh Triglyceride: 200-499 mg/dLVery High Triglyceride: greater than or equal to 5OO mg/dL Cholesterol 246(H) <200 mg/dL [facility] Comment:Desirable Cholestero l: less than 200 mg/dLBorderline High Cholesterol: 200-239 mg/dLHigh Cholesterol: greater than 239 mg/dL LDL Cholesterol Calculated 181(H) <100 mg/dL [facility] Comment:Desirable LDL: less than 100 mg/dLNear Optimal/Above Optimal LDL: 110- 129 mg/dLBorderline High LDL: 130-159 mg/dLHigh LDL: 160-189 mg/dLVery High LDL: greater than or equal to 190 mg/dL HDL Cholesterol 48 >40 mg/dL [facility] Comment:Desirable HDL: great er than 40 mg/dL Note: This HDL assay may give artificially low results in patients with liver disease. Blood Venous blood specimen / Unknown 04/30/2024 11:28 AM EST 04/30/2024 1:24 PM EST Malcolm VELEZ LAB BLOOD ORDERABLES Lottie l Result Performing Organization Address [facility] Co de Phone Number [facility] [address] [place] [address] [phone] * (ABNORMAL) HPV DNA, Low/High Risk (04/01/2024 11:10 AM EST) HPV High Risk Positive(A) Negative [facility] HPV Genotype 16 Positive(A) Negative [facility] HPV Genotype 18 Negative Negative [facility] Comment:HPV testing performe d at [facility] (CLIA#[id number]), [address] [place] [address].Testing for HPV was performed using the Patrice [...] Machuca MD LAB BLOOD ORDERABLES Final Result Performing Organization Address [facility]/ZIP Co de Phone Number [facility] [address] [place] [phone] * Pap Smear (04/01/2024 11:10 AM EST) Swab Cervix uteri structure / Unknown 04/01/2024 11:10 AM EST 04/02/2024 6:30 AM EST Frida [facility] - 04/14/2024 6:07 PM EST ----- ------- Name: Gabi Wilks Age/Sex: 43/F : 1980 Unit#: [id number] Attend Dr: MALCOLM ALVAREZ CNM Re04/01/24 Status: DEP REF Location: HO.HHCLNP Disch: ----- ------- SPEC : [id number] RECD: 04/02/24 STATUS: CARMELITA JAMA NUM: [id number] ROBEL: 04/01/24-[address] [facility] DR: MALCOLM ALVAREZ CNM ENTERED: 04/05/24 SP TYPE: Pap Smr OTHR : ORDERED: Pap Smear, PAP path review Interpretation General Category: Epithelial cell abnormality. Adequacy: Transformation zone component present. Interpretation: Atypical squamous cells of undetermined significance. Scant cellularity. HPV High Risk: Positive HPV Genotyping 16: Positive HPV Genotyping 18: Negative Clinical Information LMP: Unknown date Previous PAP test: 2020, LSIL, HPV pos 2020, preceded by neg colpo and ASCUS HPV pos PAP Material Received ThinPrep-Cervical ----- ------- Signed (signature on file) Jazmín Minto 04/14/24 1807 ----- ------- END OF REPORT Malcolm Alvarez [facility] CYTOLOGY ORDERABLES F inal Result [facility] [address] [place] [address] [phone] * HEPATITIS C AB W/REFL TO HCV RNA, QN, PCR (12/29/2020 4:34 PM EDT) HEPATITIS C ANTIBODY NON-REACT JEREMY NON-REACT JEREMY [facility] INDEX 0.02 <1.00 [facility] Comment: HCV antibody was non-reactive. There is no laboratory evidence of HCV infection. In most cases, no further action is required. However, if recent HCV exposure is suspected, a test for HCV RNA (test code 78199) is suggested. For additional information please refer to http://education.[employer]/faq/WGQ28c7 (This link is being provided for informational/ educational purposes only.) 12/29/2020 4:34 PM EDT Mary HAYDENP HISTORICAL/NON ORDERABLE LABS Final Result Performing Organization Address [facility] Co de Phone Number [facility] [address] [place] [address], * HIV 1/2 ANTIGEN/ANTIBODY,FOURTH GENERATION W/RFL (12/29/2020 4:34 PM EDT) HIV-1/2 ANTIGEN AND ANTIBODIES, 4TH GENERATION W/ REFLEX NON-REACT JEREMY NON-REACT JEREMY [facility] Comment: HIV-1 antigen and HIV-1/HIV-2 antibodies were not detected. There is no laboratory evidence of HIV infection. PLEASE NOTE: This information has been disclosed to you from records whose confidentiality may be protected by state law. If your state requires such protection, then the state law prohibits you from making any further disclosure of the information without the specific written consent of the person to whom it pertains, or as otherwise permitted by law. A general authorization for the release of medical or other information is NOT sufficient for this purpose. For additional information please refer to http://education.[employer]/faq/PNB744 (This link is being provided for informational/ educational purposes only.) The performance of this assay has not been clinically validated in patients less than 2 years old. 12/29/2020 4:34 PM EDT Marykeke Moore FURNITURE [employer]ER LAB BLOOD ORDERABLES Final Res ult Performing Organization Address [facility] Co de Phone Number [facility] [address] [place] [address], * Colposcopy (06/01/2020 12:00 AM EDT) Historical Provider MD IN CLINIC/BEDSIDE ORDERAB LES Final Result Performing Organization Address [facility] Co de Phone Number [facility] [address] [place] [phone] * 3D BILATERAL DIAGN MAMMO 1 [...] BILATERAL DIAGN MAMMO 1 us Historical Provider MD HINOJOSA BI PROCEDURES Final R esult from Last 3 Months or Most Recently Relevant to Health Maintenance Insurance [facility] Care Teams Handbag Framer Relationship Specialty Start Date End Date Mary Moore FNP [address] [place], [place] PCP - General Family Medicine 12/25/20
[2025-01-26 16:45] LABS: Alanine Aminotransferase 18 U/L (0-31); Albumin Level 4.6 g/dL (3.5-5.0); Alkaline Phosphatase 107 U/L (39-117); Anion Gap 12 (12-20); Aspartate Amino Transferase 26 U/L (5-31); Blood Urea Nitrogen 8 mg/dL (9-16); Calcium 9.1 mg/dL (8.4-10.2); Carbon Dioxide 24 mmol/L (22-29); Chloride 107 mmol/L (96-108); Estimated Glomerular Filt Rate > 60; Potassium 3.7 mmol/L (3.3-5.1); Sodium 139 mmol/L (135-145); Total Protein 7.5 g/dL (6.5-8.0)
== END 2025-01-26 11:50 | disposition home or self-care (01) ==
LOC: HO.HHCL 11:49
PROVIDERS: PCP Registered Nurse; Visit Provider Registered Nurse
DX: R39.15 Urgency of urination (principal)
CPT/HCPCS: 36415; 80053; 81001; 83036